=== PATIENT | male | born 1965 | race Caucasian/White ===

== ENCOUNTER 2017-04-22 17:54 | Emergency (ER) | payer MEDICAID, OTHER ==
[2017-04-22 18:41] VITALS: RESP 20
--- NOTE | 2017-04-22 19:29 | C.PDOC ---
History Of Present Illness 51 year old male presents to the ER with a complaint of right upper arm numbness and upper posterior chest wall pain by the base of the neck. Denies dizziness or weakness. Chief Complaint (Nursing): Weakness/Neurological Deficit History Per: Patient History/Exam Limitations: no limitations Onset/Duration Of Symptoms: Days Current Symptoms Are (Timing): Still Present Activity At Onset Of Symptoms: Sitting Seizure Or Post-ictal Symptoms: None Possible Causative Factor(s): Other (Not known) Fall Associated With With Symptoms: No Recent travel outside of the [place]: No - Symptoms Of CVA Associated Symptoms: denies: Impaired Speech, Seizure Activity, New Vision Deficit(Left), New Vision Deficit(Right), Decreased Ability To Walk, New Confusion Past Medical History Reviewed: Historical Data, Nursing Documentation, Vital Signs Vital Signs: Last Vital Signs Temp 98.3 F 04/22/17 18:40 Pulse 77 04/22/17 18:40 Resp 20 04/22/17 18:40 BP 146/88 04/22/17 18:40 Pulse Ox 97 04/23/17 01:52 Family History: States: Unknown Family Hx - Social History Hx Alcohol Use: Yes Hx Substance Use: No - Immunization History Hx Tetanus Toxoid Vaccination: No Hx Influenza Vaccination: No Review Of Systems Constitutional: Negative for: Fever, Chills Musculoskeletal: Positive for: Other (Posterior chest wall pain) Neurological: Positive for: Numbness (right upper arm). Negative for: Weakness , Dizziness Physical Exam - Physical Exam Appears: Non-toxic, Other (Alert. Conscious.) Skin: Normal Color, Warm, Dry Head: Atraumatic, Normacephalic Eye(s): bilateral: Normal Inspection Oral Mucosa: Moist Neck: Normal, No Midline Cervical Tenderness, No Paracervical Tenderness, Supple Chest: Symmetrical, Tenderness (Posterior chest wall by base of neck) Cardiovascular: Rhythm Regular Respiratory: Normal Breath Sounds, No Rales, No Rhonchi, No Wheezing Gastrointestinal/Abdominal: Soft, No Tenderness Extremity: No Tenderness, No Swelling Neurological/Psych: Oriented x3, Normal Speech, Normal Motor, Normal Sensation, Other (No focal deficits) ED Course And Treatment - Laboratory Results Result Diagrams: 04/22/17 20:37 04/22/17 20:37 O2 Sat by Pulse Oximetry: 97 (room air) Pulse Ox Interpretation: Normal - Radiology CXR: Interpreted by Me, Viewed By Me CXR Interpretation: Yes: No Acute Disease, Other (nomal chest film). No: Infiltrates Progress Note: CT head, blood work, EKG, CXR, and cervical spine x-ray ordered. Toradol administered. Disposition Counseled Patient/Family Regarding: Diagnosis - Disposition Referrals: [facility] [Outside] Disposition: HOME/ ROUTINE Disposition Time: 01:47 Condition: STABLE Prescriptions: Naproxen 375 mg PO TIDPC #14 tablet Instructions: Cervical Strain (GEN) Forms: Gen Discharge Inst Citizen Of [place], [employer] (French) Print Language: MAORI - POA Present On Arrival: None - Clinical Impression Clinical Impression: Strain of fascia of neck, Myofascial pain syndrome - Scribe Statement The provider has reviewed the documentation as recorded by the Scribe Christiano De La Cruz All medical record entries made by the Scribe were at my direction and personally dictated by me. I have reviewed the chart and agree that the record accurately reflects my personal performance of the history, physical exam, medical decision making, and the department course for this patient. I have also personally directed, reviewed, and agree with the discharge instructions and disposition.
[2017-04-22 20:40] LABS: BASO # 0.1 K/uL (0.0-0.2); BASO % 0.6 % (0.0-2.0); EOS % 0.5 % (0.0-4.0); HEMOGLOBIN 13.6 g/dL (12.0-18.0); LYMPH # 2.1 K/uL (1.0-4.3); LYMPH % 26.1 % (20.0-40.0); MEAN CELL VOLUME 86.3 fL (80.0-94.0); MEAN CORPUSCULAR HEMOGLOBIN 30.3 pg (27.0-31.0); MEAN CORPUSCULAR HGB CONC 35.1 g/dL (33.0-37.0); MEAN PLATELET VOLUME 10.8 fL (7.2-11.7); MONO # 0.7 K/uL (0.0-0.8); MONO % 8.2 % (0.0-10.0); NEUT # 5.2 K/uL (1.8-7.0); NEUT % 64.6 % (50.0-75.0); RBC 4.49 Mil/uL (4.40-5.90)
--- NOTE | 2017-04-22 20:40 | CT ---
EXAM: CT Head Without Intravenous Contrast EXAM DATE/TIME: 04/22/2017 7:28 PM CLINICAL HISTORY: 51 years old, male; Pain; Headache; Headache not specified TECHNIQUE: Axial computed tomography images of the head/brain without intravenous contrast. All CT scans at this facility use one or more dose reduction techniques, viz.: automated exposure control; ma/kV adjustment per patient size (including targeted exams where dose is matched to indication; i.e. head); or iterative reconstruction technique. COMPARISON: There are no prior studies for comparison. FINDINGS: Brain: Ventricles are normal in size and configuration. There is no midline shift. There is mild prominence of sulci and gyri There are no intra-axial or extra-axial mass lesions or areas of hemorrhage. There are no abnormal fluid collections. Ogden-white differentiation is maintained. There is a small punctate calcification in the right frontal lobe. Ventricles: See above. Bones: Cranial vault is intact. Soft tissues: unremarkable Sinuses: There is mucoperiosteal thickening in ethmoid and maxillary sinuses. Ears and mastoids: Middle ears and mastoids are unremarkable Orbits: Orbital contents are unremarkable. IMPRESSION: No acute intracranial abnormality
[2017-04-22 20:51] LABS: ALB/GLOB RATIO 1.1 (1.0-2.1); ALBUMIN 3.7 g/dL (3.5-5.0); ALT/SGPT 29 U/L (21-72); AST/SGOT 19 U/L (17-59); BLOOD UREA NITROGEN 14 mg/dL (9-20); CALCIUM 8.2 mg/dl (8.6-10.4); GFR AFRICAN-AMERICAN > 60; GFR NON-AFRICAN AMERICAN > 60
[2017-04-23 02:17] VITALS: BP 121/81; PULSE 76; TEMP 99.3; O2SAT 100
--- NOTE | 2017-04-23 09:06 | RAD ---
PROCEDURE: Cervical Spine Radiographs. HISTORY: Pain. COMPARISON: None. FINDINGS: BONES: Alignment maintained. No fracture. Dens Intact. DISC SPACES: Multilevel disc space narrowing, most prominent from C4-7. SOFT TISSUES: No prevertebral soft tissue swelling. OTHER FINDINGS: None. IMPRESSION: No acute fracture. Multilevel degenerative changes
--- NOTE | 2017-04-23 16:21 | CARD ---
APPROVED REPORT EKG Measurement Heart [id number] <Conclusion> Normal sinus rhythm Normal ECG
== END 2017-04-23 02:18 | disposition home or self-care (01) ==
LOC: EDBD 17:54 → C.ER 17:54
DX: S16.1XXA Strain of muscle, fascia and tendon at neck level, initial encounter (principal); X58.XXXA Exposure to other specified factors, initial encounter; Y92.9 Unspecified place or not applicable; M79.1 Myalgia
CPT/HCPCS: 70450; 71046; 72040; 80053; 85025; 93005; 96374; 99285; J1885

== ENCOUNTER 2017-06-23 18:34 | Inpatient (IN) | payer MEDICAID ==
[2017-06-23] MEDS ORDERED: Aluminum Hydroxide/Magnesium Hydroxide Susp (30 mL) PO STA (19:16)
[2017-06-23] MEDS ORDERED: Sodium Chloride 0.9% 1,000 ML IV ONE ×2 (19:16→20:58)
--- NOTE | 2017-06-23 19:24 | C.PDOC ---
History Of Present Illness 52 year old male with a Hx of diabetes presents to the ER with a complaint of abdominal pain and vomiting for the past 3 days. Patient states he has not been able to tolerate anything but water. Patient states he was occasionally drinks but not heavily. Denies fever, chills, hematemesis, rectal bleeding, or diarrhea. Chief Complaint (Nursing): Abdominal Pain History Per: Patient History/Exam Limitations: no limitations Onset/Duration Of Symptoms: Days Current Symptoms Are (Timing): Still Present Location Of Pain/Discomfort: Epigastric Radiation Of Pain To:: None Quality Of Discomfort: Unable To Describe Associated Symptoms: Nausea, Vomiting. denies: Fever, Chills Exacerbating Factors: None Alleviating Factors: None Recent travel outside of the [place]: No Past Medical History Reviewed: Historical Data, Nursing Documentation, Vital Signs Vital Signs: Last Vital Signs Temp 98.4 F 06/23/17 23:08 Pulse 74 06/24/17 06:00 Resp 6 L 06/24/17 06:00 BP 110/64 06/24/17 06:00 Pulse Ox 100 06/24/17 06:00 Family History: States: Unknown Family Hx - Social History Hx Alcohol Use: Yes Hx Substance Use: No - Immunization History Hx Tetanus Toxoid Vaccination: No Hx Influenza Vaccination: No Review Of Systems Constitutional: Negative for: Fever, Chills ENT: Negative for: Throat Pain Cardiovascular: Negative for: Chest Pain, Palpitations, Light Headedness Respiratory: Negative for: Cough, Shortness of Breath Gastrointestinal: Positive for: Nausea, Vomiting, Abdominal Pain. Negative for : Diarrhea, Hematemesis Physical Exam - Physical Exam Appears: Non-toxic Skin: Normal Color, Warm, Dry Head: Atraumatic, Normacephalic Eye(s): bilateral: Normal Inspection Oral Mucosa: Moist Chest: Symmetrical, No Tenderness Cardiovascular: Rhythm Regular Respiratory: Normal Breath Sounds, No Rales, No Rhonchi, No Wheezing Gastrointestinal/Abdominal: Soft, No Distention, Other (Mild subjective discomfort at epigastric area) Neurological/Psych: Oriented x3, Normal Speech ED Course And Treatment - Laboratory Results Result Diagrams: 06/24/17 04:02 06/24/17 04:02 ECG: Interpreted By Me, Viewed By Me ECG Rhythm: Sinus Rhythm ECG Interpretation: Normal Interpretation Of ECG: No ectope, normal axis, ST segment within normal limits. Rate From EC O2 Sat by Pulse Oximetry: 100 (Room air) Pulse Ox Interpretation: Normal - CT Scan/US Abdominal US Other Rad Studies (CT/US): Read By Radiologist, Radiology Report Reviewed CT/US Interpretation: EXAM: US Abdomen Limited, Right Upper Quadrant. CLINICAL HISTORY: 52 years old, male; Pain; Abdominal pain; Generalized; Additional info: Abd pain, lft's elevated. TECHNIQUE: Real-time ultrasound of the right upper quadrant with image documentation. COMPARISON: No relevant prior studies available. FINDINGS: Liver: Normal echogenicity. No mass. No intrahepatic ductal dilatation. Gallbladder: No gallstones. No wall thickening. No pericholecystic fluid. No sonographic Miner's. sign. Common bile duct: No dilatation. No stones. Pancreas: Unremarkable as visualized. Right kidney: Normal echogenicity. No hydronephrosis. IMPRESSION: 1. No acute findings. Medical Decision Making Medical Decision Making: Plan: * Blood work * Viscous Lidocaine * Maalox * Pepcid * Reglan * IV fluids Impression is gastritis. Lab work shows possible DKA and elevated LFTs, will evaluate gallbladder. Case discussed with Dr. Wyatt, hospitalist distribution clerk, who agrees to accept patient for admission. Case discussed with Dr. Emerson, hair salon manager distribution clerk, who will accept patient to the unit. Disposition - Disposition Disposition: HOSPITALIZED Disposition Time: 06:51 Condition: CRITICAL - Clinical Impression Clinical Impression: DKA (diabetic ketoacidoses) - Scribe Statement The provider has reviewed the documentation as recorded by the Scribemily De La Cruz All medical record entries made by the Scribe were at my direction and personally dictated by me. I have reviewed the chart and agree that the record accurately reflects my personal performance of the history, physical exam, medical decision making, and the department course for this patient. I have also personally directed, reviewed, and agree with the discharge instructions and disposition.
[2017-06-23] MEDS ORDERED: Aluminum Hydroxide/Magnesium Hydroxide Susp (30 mL) ONE (19:36)
[2017-06-23 19:38] LABS: BASO # 0.1 K/uL (0.0-0.2); BASO % 0.6 % (0.0-2.0); HEMOGLOBIN 15.2 g/dL (12.0-18.0); LYMPH # 1.3 K/uL (1.0-4.3); LYMPH % 12.1 % (20.0-40.0); MEAN CELL VOLUME 89.8 fL (80.0-94.0); MEAN CORPUSCULAR HEMOGLOBIN 30.5 pg (27.0-31.0); MEAN PLATELET VOLUME 10.7 fL (7.2-11.7); MONO # 0.8 K/uL (0.0-0.8); MONO % 7.2 % (0.0-10.0); NEUT # 8.8 K/uL (1.8-7.0); NEUT % 80.1 % (50.0-75.0); RBC 4.97 Mil/uL (4.40-5.90); RED CELL DISTRIBUTION WIDTH 13.3 % (11.5-14.5); WHITE BLOOD COUNT 10.9 K/uL (4.8-10.8)
[2017-06-23 19:54] LABS: ALB/GLOB RATIO 1.3 (1.0-2.1); ALBUMIN 4.8 g/dL (3.5-5.0); ALT/SGPT 36 U/L (21-72); AST/SGOT 13 U/L (17-59); BLOOD UREA NITROGEN 20 mg/dL (9-20); CALCIUM 8.5 mg/dl (8.6-10.4); GFR AFRICAN-AMERICAN > 60; GFR NON-AFRICAN AMERICAN > 60; LIPASE 77 U/L (23-300)
[2017-06-23] MEDS ORDERED: (Novolin R) Insulin Human Regular 100 units/ml vial IV ONE (20:04)
[2017-06-23 20:14] LABS: BARBITURATES, UR NEGATIVE (NEGATIVE); BENZODIAZEPINES, UR NEGATIVE (NEGATIVE); OPIATES, UR NEGATIVE (NEGATIVE); PHENCYCLIDINE, UR NEGATIVE (NEGATIVE)
[2017-06-23 20:27] LABS: URINE BILIRUBIN NEGATIVE (NEGATIVE); URINE BLOOD NEGATIVE (NEGATIVE); URINE CLARITY Clear (Clear); URINE GLUCOSE (UA) 3+ mg/dL (Normal); URINE LEUKOCYTE ESTERASE NEG Leu/uL (Negative); URINE PROTEIN NEGATIVE (NEGATIVE); URINE UROBILINOGEN NORMAL mg/dL (0.2-1.0)
[2017-06-23 20:29] LABS: URINE COLOR STRAW (YELLOW)
[2017-06-23 20:34] LABS: ARTERIAL BLOOD GAS HCO3 16.9 mmol/L (21-28); ARTERIAL BLOOD GAS HEMOGLOBIN 13.6 g/dL (11.7-17.4); ARTERIAL BLOOD GAS O2 SAT 96.3 % (95-98); ARTERIAL BLOOD GAS PCO2 40 mm/Hg (35-45); ARTERIAL BLOOD GAS PH 7.23 (7.35-7.45); ARTERIAL BLOOD GAS PO2 86 mm/Hg (80-100)
[2017-06-23] MEDS ORDERED: (Novolin R) Insulin Human Regular 100 units/ml vial ONE (20:48)
[2017-06-23] MEDS ORDERED: Insulin Human Regular 100 UNIT in Sodium Chloride 0.9% 99 ML IV SCH ×2 (21:00→23:45)
[2017-06-23] MEDS ORDERED: Sodium Chloride 0.9% 1,000 ML ONE (21:15)
--- NOTE | 2017-06-23 21:51 | CP.PCM.CON ---
History of Present Illness - History of Present Illness History of Present Illness: 52 year old male with a Hx of diabetes presents to the ER with a complaint of abdominal pain and vomiting for the past 3 days. Patient states he has not been able to tolerate anything but water. He last took insulin on friday.Drinks alchohol on weekerds last had alchohol on friday. Denies fever, chills, cough, chest pain,hematemesis, rectal bleeding, or diarrhea. history via dermatology nurse Review of Systems - Constitutional Constitutional: Anorexia, Fatigue, Weakness. absent: Chills, Excessive Sweating , Fever, Night Sweats - EENT Eyes: absent: Blurred Vision, Pain Ears: absent: Decreased Hearing, Dizziness Nose/Mouth/Throat: absent: Hoarsness, Sore Throat - Cardiovascular Cardiovascular: absent: Chest Pain, Edema, Leg Edema - Respiratory Respiratory: absent: Cough, Dyspnea, Chest Congestion - Gastrointestinal Gastrointestinal: Abdominal Pain (epigastric pain), Nausea, Vomiting. absent: Coffee Ground Emesis, Constipation - Genitourinary Genitourinary: absent: Dysuria, Urinary Frequency, Urinary Urgency - Musculoskeletal Musculoskeletal: absent: Back Pain, Stiffness - Integumentary Integumentary: absent: Bleeding Lesions, Rash - Neurological Neurological: absent: Confusion, Dizziness - Endocrine Endocrine: absent: Polydipsia, Polyuria Additional Comments: occassional palpitations - Hematologic/Lymphatic Hematologic: absent: Easy Bleeding Past Patient History - Past Social History Smoking Status: Never Smoked Occupation: house keeper Alcohol: Other (drinks on weekends but "not every weekend") Drugs: Denies - CARDIAC Hx Cardiac Disorders: No - PULMONARY Hx Respiratory Disorders: No - NEUROLOGICAL Hx Neurological Disorder: No - HEENT Hx HEENT Problems: No - RENAL Hx Chronic Kidney Disease: No - ENDOCRINE/METABOLIC Hx Diabetes Mellitus Type 2: Yes - HEMATOLOGICAL/ONCOLOGICAL Hx Blood Disorders: No - INTEGUMENTARY Hx Dermatological Problems: No - MUSCULOSKELETAL/RHEUMATOLOGICAL Hx Musculoskeletal Disorders: No - GASTROINTESTINAL Hx Gastrointestinal Disorders: No - PSYCHIATRIC Hx Substance Use: No - SURGICAL HISTORY Other/Comment: Rt. eye surgery - ANESTHESIA Hx Anesthesia: No Hx Anesthesia Reactions: No Meds Allergies/Adverse Reactions: Allergies Allergy/AdvReac Type Severity Reaction Status Date / Time No Known Allergies Allergy Unverified 04/22/17 18:41 - Medications Medications: Current Medications Insulin Human Regular 100 unit (/ Sodium Chloride) 100 mls @ 1.08 mls/hr IV .Q24H NISSA; 0.02 UNIT/KG/HR PRN Reason: Protocol Sodium Chloride (Sodium Chloride 0.9%) 1,000 mls @ 1,000 mls/hr IV .Q1H ONE Stop: 06/23/17 21:57 Last Admin: 06/23/17 21:15 Dose: 1,000 mls/hr Physical Exam - Constitutional Appears: No Acute Distress - Head Exam Head Exam: ATRAUMATIC, NORMAL INSPECTION, NORMOCEPHALIC - Eye Exam Eye Exam: EOMI, Normal appearance, PERRL. absent: Conjunctival injection Pupil Exam: NORMAL ACCOMODATION - ENT Exam ENT Exam: Mucous Membranes Dry, Normal External Ear Exam - Neck Exam Neck exam: Positive for: Normal Inspection - Respiratory Exam Respiratory Exam: Clear to Auscultation Bilateral, NORMAL BREATHING PATTERN - Cardiovascular Exam Cardiovascular Exam: REGULAR RHYTHM. absent: JVD - GI/Abdominal Exam GI & Abdominal Exam: Normal Bowel Sounds, Soft. absent: Tenderness - Rectal Exam Rectal Exam: Deferred - Extremities Exam Extremities exam: Positive for: normal inspection. Negative for: calf tenderness, pedal edema - Back Exam Back exam: absent: NORMAL INSPECTION - Neurological Exam Neurological exam: Alert, CN II-XII Intact, Oriented x3 - Skin Skin Exam: Dry, Normal Color, Warm Results - Vital Signs Recent Vital Signs: Last Vital Signs Temp 97.7 F 06/23/17 18:46 Pulse 102 H 06/23/17 18:46 Resp 18 06/23/17 18:46 BP 132/87 06/23/17 18:46 Pulse Ox 100 06/23/17 21:15 - Labs Result Diagrams: 06/23/17 19:35 06/23/17 19:35 Labs: Laboratory Results - last 24 hr 06/23/17 06/23/17 06/23/17 19:35 19:35 19:52 WBC 10.9 H RBC 4.97 Hgb 15.2 Hct 44.6 MCV 89.8 D MCH 30.5 MCHC 34.0 RDW 13.3 Plt Count 183 MPV 10.7 Neut % (Auto) 80.1 H Lymph % (Auto) 12.1 L [place] % (Auto) 7.2 Eos % (Auto) 0.0 Baso % (Auto) 0.6 Neut # (Auto) 8.8 H Lymph # (Auto) 1.3 [place] # (Auto) 0.8 Eos # (Auto) 0.0 Baso # (Auto) 0.1 Puncture Site pCO2 pO2 HCO3 ABG pH ABG Total CO2 ABG O2 Saturation ABG Base Excess ABG Hemoglobin ABG Carboxyhemoglobin POC ABG HHb (Measured) ABG Methemoglobin Kp Test A-a O2 Difference Respiratory Index Hgb O2 Saturation Liter Flow FiO2 Sodium 136 Potassium 5.2 Chloride 92 L Carbon Dioxide 17 L Anion Gap 32 H BUN 20 Creatinine 1.1 Est GFR ( Amer) > 60 Est GFR (Non-Af Amer) > 60 POC Glucose (mg/dL) Random Glucose 524 H* D Calcium 8.5 L Total Bilirubin 1.6 H AST 13 L D ALT 36 Alkaline Phosphatase 116 Total Protein 8.4 H Albumin 4.8 Globulin 3.6 Albumin/Globulin Ratio 1.3 Lipase 77 Urine Color Urine Clarity Urine pH Ur Specific Venus Urine Protein Urine Glucose (UA) Urine Ketones Urine Blood Urine Nitrate Urine Bilirubin Urine Urobilinogen Ur Leukocyte Esterase Urine WBC (Auto) Urine Opiates Screen Negative Urine Methadone Screen Negative Ur Barbiturates Screen Negative Ur Phencyclidine Scrn Negative Ur Amphetamines Screen Negative U Benzodiazepines Scrn Negative U Oth Cocaine Metabols Positive H U Cannabinoids Screen Negative Alcohol, Quantitative < 10 Serum Ketones 06/23/17 06/23/17 06/23/17 20:21 20:21 20:30 WBC RBC Hgb Hct MCV MCH MCHC RDW Plt Count MPV Neut % (Auto) Lymph % (Auto) [place] % (Auto) Eos % (Auto) Baso % (Auto) Neut # (Auto) Lymph # (Auto) [place] # (Auto) Eos # (Auto) Baso # (Auto) Puncture Site Rba pCO2 40 pO2 86 HCO3 16.9 L ABG pH 7.23 L ABG Total CO2 18.0 L ABG O2 Saturation 96.3 ABG Base Excess -10.2 L ABG Hemoglobin 13.6 ABG Carboxyhemoglobin 1.2 POC ABG HHb (Measured) 3.6 ABG Methemoglobin 1.0 Kp Test Na A-a O2 Difference 14.0 Respiratory Index 0.2 Hgb O2 Saturation 94.2 L Liter Flow 0 FiO2 21.0 Sodium Potassium Chloride Carbon Dioxide Anion Gap BUN Creatinine Est GFR ( Amer) Est GFR (Non-Af Amer) POC Glucose (mg/dL) Random Glucose Calcium Total Bilirubin AST ALT Alkaline Phosphatase Total Protein Albumin Globulin Albumin/Globulin Ratio Lipase Urine Color Straw Urine Clarity Clear Urine pH 5.0 Ur Specific Venus 1.027 Urine Protein Negative Urine Glucose (UA) 3+ H Urine Ketones 2+ H Urine Blood Negative Urine Nitrate Negative Urine Bilirubin Negative Urine Urobilinogen Normal Ur Leukocyte Esterase Neg Urine WBC (Auto) < 1 Urine Opiates Screen Urine Methadone Screen Ur Barbiturates Screen Ur Phencyclidine Scrn Ur Amphetamines Screen U Benzodiazepines Scrn U Oth Cocaine Metabols U Cannabinoids Screen Alcohol, Quantitative Serum Ketones Small 06/23/17 21:41 WBC RBC Hgb Hct MCV MCH MCHC RDW Plt Count MPV Neut % (Auto) Lymph % (Auto) [place] % (Auto) Eos % (Auto) Baso % (Auto) Neut # (Auto) Lymph # (Auto) [place] # (Auto) Eos # (Auto) Baso # (Auto) Puncture Site pCO2 pO2 HCO3 ABG pH ABG Total CO2 ABG O2 Saturation ABG Base Excess ABG Hemoglobin ABG Carboxyhemoglobin POC ABG HHb (Measured) ABG Methemoglobin Kp Test A-a O2 Difference Respiratory Index Hgb O2 Saturation Liter Flow FiO2 Sodium Potassium Chloride Carbon Dioxide Anion Gap BUN Creatinine Est GFR ( Amer) Est GFR (Non-Af Amer) POC Glucose (mg/dL) 252 H Random Glucose Calcium Total Bilirubin AST ALT Alkaline Phosphatase Total Protein Albumin Globulin Albumin/Globulin Ratio Lipase Urine Color Urine Clarity Urine pH Ur Specific [place] Urine Protein Urine Glucose (UA) Urine Ketones Urine Blood Urine Nitrate Urine Bilirubin Urine Urobilinogen Ur Leukocyte Esterase Urine WBC (Auto) Urine Opiates Screen Urine Methadone Screen Ur Barbiturates Screen Ur Phencyclidine Scrn Ur Amphetamines Screen U Benzodiazepines Scrn U Oth Cocaine Metabols U Cannabinoids Screen Alcohol, Quantitative Serum Ketones - EKG Data EKG Interpreted by: Myself EKG shows normal: Sinus rhythm Rate: Normal Assessment & Plan - Assessment and Plan (Free Text) Assessment: 1.Diabetic Ketoacidosis anion gap 32 IVF,insulin 2.Coccain use 3. Elevated total bilirubin.AST low,ALT and alk phos normal f/u with rpt labs. US done in ER-f/u with results
--- NOTE | 2017-06-23 22:04 | US ---
EXAM: US Abdomen Limited, Right Upper Quadrant CLINICAL HISTORY: 52 years old, male; Pain; Abdominal pain; Generalized; Additional info: Abd pain, lft's elevated TECHNIQUE: Real-time ultrasound of the right upper quadrant with image documentation. COMPARISON: No relevant prior studies available. FINDINGS: Liver: Normal echogenicity. No mass. No intrahepatic ductal dilatation. Gallbladder: No gallstones. No wall thickening. No pericholecystic fluid. No sonographic Miner's sign. Common bile duct: No dilatation. No stones. Pancreas: Unremarkable as visualized. Right kidney: Normal echogenicity. No hydronephrosis. IMPRESSION: 1.No acute findings.
[2017-06-23] MEDS ORDERED: Dextrose 5%/0.9% NS 1,000 ML IV SCH (22:15)
[2017-06-23] MEDS ORDERED: SODIUM CHLORIDE 0.9% IV SCH (22:44)
[2017-06-23] MEDS ORDERED: INSULIN HUMAN REGULAR IV SCH (22:44)
--- NOTE | 2017-06-23 23:12 | CP.PCM.HP ---
<Glenn Eliasssjam Shahid - Last Filed: 06/24/17 01:11> History of Present Illness - History of Present Illness History of Present Illness: HPI: 52 year old male with past medical history of DM type II presents to the ER for elevated blood sugar. Patient states he did not take his insulin for 3 days because his stomach was bothering him. Patient states he usually takes 30 units of Insulin (does not recall what kind) every morning. Patient states the abdominal pain felt like acid. He states he had a bowel movement this morning. Patient states the abdominal pain has not stopped. Patient denies chest pain , palpitations, shortness of breath, nausea or vomiting. 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 States he drinks one per week about 2-3 beers Present on Admission - Present on Admission Any Indicators Present on Admission: No Review of Systems - Constitutional Constitutional: absent: Chills, Fatigue, Headache - EENT Eyes: absent: Change in Vision - Cardiovascular Cardiovascular: absent: Chest Pain, Dyspnea - Respiratory Respiratory: absent: Dyspnea - Gastrointestinal Gastrointestinal: absent: Abdominal Pain, Constipation, Nausea, Vomiting - Genitourinary Genitourinary: absent: Dysuria - Neurological Neurological: absent: Dizziness, Headaches Past Patient History - Past Social History Smoking Status: Never Smoked Occupation: house keeper Alcohol: Other (drinks on weekends but "not every weekend") Drugs: Denies - CARDIAC Hx Cardiac Disorders: No - PULMONARY Hx Respiratory Disorders: No - NEUROLOGICAL Hx Neurological Disorder: No - HEENT Hx HEENT Problems: No - RENAL Hx Chronic Kidney Disease: No - ENDOCRINE/METABOLIC Hx Diabetes Mellitus Type 2: Yes - HEMATOLOGICAL/ONCOLOGICAL Hx Blood Disorders: No - INTEGUMENTARY Hx Dermatological Problems: No - MUSCULOSKELETAL/RHEUMATOLOGICAL Hx Musculoskeletal Disorders: No - GASTROINTESTINAL Hx Gastrointestinal Disorders: No - PSYCHIATRIC Hx Substance Use: No - SURGICAL HISTORY Other/Comment: Rt. eye surgery - ANESTHESIA Hx Anesthesia: No Hx Anesthesia Reactions: No Meds Allergies/Adverse Reactions: Allergies Allergy/AdvReac Type Severity Reaction Status Date / Time No Known Allergies Allergy Unverified 01/23/18 18:41 Physical Exam - Constitutional Appears: No Acute Distress - Head Exam Head Exam: ATRAUMATIC, NORMAL INSPECTION - Eye Exam Eye Exam: EOMI, Normal appearance - ENT Exam ENT Exam: Mucous Membranes Moist - Respiratory Exam Respiratory Exam: Clear to Auscultation Bilateral, NORMAL BREATHING PATTERN - Cardiovascular Exam Cardiovascular Exam: REGULAR RHYTHM, +S1, +S2 - GI/Abdominal Exam GI & Abdominal Exam: Normal Bowel Sounds, Soft. absent: Distended, Firm, Guarding, Tenderness - Extremities Exam Extremities exam: Positive for: normal inspection. Negative for: pedal edema, tenderness - Neurological Exam Neurological exam: Alert, Oriented x3 - Psychiatric Exam Psychiatric exam: Normal Affect, Normal Mood - Skin Skin Exam: Normal Color, Warm Results - Vital Signs Recent Vital Signs: Last Vital Signs Temp 98.3 F 06/23/17 22:05 Pulse 96 H 06/23/17 22:05 Resp 16 06/23/17 22:05 BP 125/80 06/23/17 22:05 Pulse Ox 100 06/23/17 22:28 - Labs Result Diagrams: 06/23/17 19:35 06/23/17 19:35 Labs: Laboratory Results - last 24 hr 06/23/17 06/23/17 06/23/17 19:35 19:35 19:52 WBC 10.9 H RBC 4.97 Hgb 15.2 Hct 44.6 MCV 89.8 D MCH 30.5 MCHC 34.0 RDW 13.3 Plt Count 183 MPV 10.7 Neut % (Auto) 80.1 H Lymph % (Auto) 12.1 L [place] % (Auto) 7.2 Eos % (Auto) 0.0 Baso % (Auto) 0.6 Neut # (Auto) 8.8 H Lymph # (Auto) 1.3 [place] # (Auto) 0.8 Eos # (Auto) 0.0 Baso # (Auto) 0.1 Puncture Site pCO2 pO2 HCO3 ABG pH ABG Total CO2 ABG O2 Saturation ABG Base Excess ABG Hemoglobin ABG Carboxyhemoglobin POC ABG HHb (Measured) ABG Methemoglobin Kp Test A-a O2 Difference Respiratory Index Hgb O2 Saturation Liter Flow FiO2 Sodium 136 Potassium 5.2 Chloride 92 L Carbon Dioxide 17 L Anion Gap 32 H BUN 20 Creatinine 1.1 Est GFR ( Amer) > 60 Est GFR (Non-Af Amer) > 60 POC Glucose (mg/dL) Random Glucose 524 H* D Calcium 8.5 L Total Bilirubin 1.6 H AST 13 L D ALT 36 Alkaline Phosphatase 116 Total Protein 8.4 H Albumin 4.8 Globulin 3.6 Albumin/Globulin Ratio 1.3 Lipase 77 Urine Color Urine Clarity Urine pH Ur Specific [place] Urine Protein Urine Glucose (UA) Urine Ketones Urine Blood Urine Nitrate Urine Bilirubin Urine Urobilinogen Ur Leukocyte Esterase Urine WBC (Auto) Urine Opiates Screen Negative Urine Methadone Screen Negative Ur Barbiturates Screen Negative Ur Phencyclidine Scrn Negative Ur Amphetamines Screen Negative U Benzodiazepines Scrn Negative U Oth Cocaine Metabols Positive H U Cannabinoids Screen Negative Alcohol, Quantitative < 10 Serum Ketones 06/23/17 06/23/17 06/23/17 20:21 20:21 20:30 WBC RBC Hgb Hct MCV MCH MCHC RDW Plt Count MPV Neut % (Auto) Lymph % (Auto) [place] % (Auto) Eos % (Auto) Baso % (Auto) Neut # (Auto) Lymph # (Auto) [place] # (Auto) Eos # (Auto) Baso # (Auto) Puncture Site Rba pCO2 40 pO2 86 HCO3 16.9 L ABG pH 7.23 L ABG Total CO2 18.0 L ABG O2 Saturation 96.3 ABG Base Excess -10.2 L ABG Hemoglobin 13.6 ABG Carboxyhemoglobin 1.2 POC ABG HHb (Measured) 3.6 ABG Methemoglobin 1.0 Kp Test Na A-a O2 Difference 14.0 Respiratory Index 0.2 Hgb O2 Saturation 94.2 L Liter Flow 0 FiO2 21.0 Sodium Potassium Chloride Carbon Dioxide Anion Gap BUN Creatinine Est GFR ( Amer) Est GFR (Non-Af Amer) POC Glucose (mg/dL) Random Glucose Calcium Total Bilirubin AST ALT Alkaline Phosphatase Total Protein Albumin Globulin Albumin/Globulin Ratio Lipase Urine Color Straw Urine Clarity Clear Urine pH 5.0 Ur Specific [place] 1.027 Urine Protein Negative Urine Glucose (UA) 3+ H Urine Ketones 2+ H Urine Blood Negative Urine Nitrate Negative Urine Bilirubin Negative Urine Urobilinogen Normal Ur Leukocyte Esterase Neg Urine WBC (Auto) < 1 Urine Opiates Screen Urine Methadone Screen Ur Barbiturates Screen Ur Phencyclidine Scrn Ur Amphetamines Screen U Benzodiazepines Scrn U Oth Cocaine Metabols U Cannabinoids Screen Alcohol, Quantitative Serum Ketones Small 03/26/18 21:41 WBC RBC Hgb Hct MCV MCH MCHC RDW Plt Count MPV Neut % (Auto) Lymph % (Auto) [place] % (Auto) Eos % (Auto) Baso % (Auto) Neut # (Auto) Lymph # (Auto) [place] # (Auto) Eos # (Auto) Baso # (Auto) Puncture Site pCO2 pO2 HCO3 ABG pH ABG Total CO2 ABG O2 Saturation ABG Base Excess ABG Hemoglobin ABG Carboxyhemoglobin POC ABG HHb (Measured) ABG Methemoglobin Kp Test A-a O2 Difference Respiratory Index Hgb O2 Saturation Liter Flow FiO2 Sodium Potassium Chloride Carbon Dioxide Anion Gap BUN Creatinine Est GFR ( Amer) Est GFR (Non-Af Amer) POC Glucose (mg/dL) 252 H Random Glucose Calcium Total Bilirubin AST ALT Alkaline Phosphatase Total Protein Albumin Globulin Albumin/Globulin Ratio Lipase Urine Color Urine Clarity Urine pH Ur Specific [place] Urine Protein Urine Glucose (UA) Urine Ketones Urine Blood Urine Nitrate Urine Bilirubin Urine Urobilinogen Ur Leukocyte Esterase Urine WBC (Auto) Urine Opiates Screen Urine Methadone Screen Ur Barbiturates Screen Ur Phencyclidine Scrn Ur Amphetamines Screen U Benzodiazepines Scrn U Oth Cocaine Metabols U Cannabinoids Screen Alcohol, Quantitative Serum Ketones Assessment & Plan - Assessment and Plan (Free Text) Assessment: 1.) DKA - Patient admitted to ICU - Insulin drip 2.) UDS + for Cocaine 3.) Elevated Bilirubin - Total Bilirubin 1.6 <Bruce Wyatt - Last Filed: 06/24/17 06:13> Results - Vital Signs Recent Vital Signs: Last Vital Signs Temp 98.4 F 06/23/17 23:08 Pulse 77 06/24/17 05:00 Resp 16 06/24/17 05:00 BP 123/76 06/24/17 05:00 Pulse Ox 100 06/24/17 05:00 - Labs Result Diagrams: 06/24/17 04:02 06/24/17 04:02 Labs: Laboratory Results - last 24 hr 06/23/17 06/23/17 06/23/17 19:35 19:35 19:52 WBC 10.9 H RBC 4.97 Hgb 15.2 Hct 44.6 MCV 89.8 D MCH 30.5 MCHC 34.0 RDW 13.3 Plt Count 183 MPV 10.7 Neut % (Auto) 80.1 H Lymph % (Auto) 12.1 L [place] % (Auto) 7.2 Eos % (Auto) 0.0 Baso % (Auto) 0.6 Neut # (Auto) 8.8 H Lymph # (Auto) 1.3 [place] # (Auto) 0.8 Eos # (Auto) 0.0 Baso # (Auto) 0.1 Puncture Site pCO2 pO2 HCO3 ABG pH ABG Total CO2 ABG O2 Saturation ABG Base Excess ABG Hemoglobin ABG Carboxyhemoglobin POC ABG HHb (Measured) ABG Methemoglobin Kp Test A-a O2 Difference Respiratory Index Hgb O2 Saturation Liter Flow FiO2 Sodium 136 Potassium 5.2 Chloride 92 L Carbon Dioxide 17 L Anion Gap 32 H BUN 20 Creatinine 1.1 Est GFR ( Amer) > 60 Est GFR (Non-Af Amer) > 60 POC Glucose (mg/dL) Random Glucose 524 H* D Calcium 8.5 L Phosphorus Magnesium Total Bilirubin 1.6 H AST 13 L D ALT 36 Alkaline Phosphatase 116 Total Protein 8.4 H Albumin 4.8 Globulin 3.6 Albumin/Globulin Ratio 1.3 Lipase 77 Urine Color Urine Clarity Urine pH Ur Specific [place] Urine Protein Urine Glucose (UA) Urine Ketones Urine Blood Urine Nitrate Urine Bilirubin Urine Urobilinogen Ur Leukocyte Esterase Urine WBC (Auto) Urine Opiates Screen Negative Urine Methadone Screen Negative Ur Barbiturates Screen Negative Ur Phencyclidine Scrn Negative Ur Amphetamines Screen Negative U Benzodiazepines Scrn Negative U Oth Cocaine Metabols Positive H U Cannabinoids Screen Negative Alcohol, Quantitative < 10 Serum Ketones 06/23/17 06/23/17 06/23/17 20:21 20:21 20:30 WBC RBC Hgb Hct MCV MCH MCHC RDW Plt Count MPV Neut % (Auto) Lymph % (Auto) [place] % (Auto) Eos % (Auto) Baso % (Auto) Neut # (Auto) Lymph # (Auto) [place] # (Auto) Eos # (Auto) Baso # (Auto) Puncture Site Rba pCO2 40 pO2 86 HCO3 16.9 L ABG pH 7.23 L ABG Total CO2 18.0 L ABG O2 Saturation 96.3 ABG Base Excess -10.2 L ABG Hemoglobin 13.6 ABG Carboxyhemoglobin 1.2 POC ABG HHb (Measured) 3.6 ABG Methemoglobin 1.0 Kp Test Na A-a O2 Difference 14.0 Respiratory Index 0.2 Hgb O2 Saturation 94.2 L Liter Flow 0 FiO2 21.0 Sodium Potassium Chloride Carbon Dioxide Anion Gap BUN Creatinine Est GFR ( Amer) Est GFR (Non-Af Amer) POC Glucose (mg/dL) Random Glucose Calcium Phosphorus Magnesium Total Bilirubin AST ALT Alkaline Phosphatase Total Protein Albumin Globulin Albumin/Globulin Ratio Lipase Urine Color Straw Urine Clarity Clear Urine pH 5.0 Ur Specific [place] 1.027 Urine Protein Negative Urine Glucose (UA) 3+ H Urine Ketones 2+ H Urine Blood Negative Urine Nitrate Negative Urine Bilirubin Negative Urine Urobilinogen Normal Ur Leukocyte Esterase Neg Urine WBC (Auto) < 1 Urine Opiates Screen Urine Methadone Screen Ur Barbiturates Screen Ur Phencyclidine Scrn Ur Amphetamines Screen U Benzodiazepines Scrn U Oth Cocaine Metabols U Cannabinoids Screen Alcohol, Quantitative Serum Ketones Small 06/23/17 06/23/17 06/24/17 21:41 23:54 00:59 WBC RBC Hgb Hct MCV MCH MCHC RDW Plt Count MPV Neut % (Auto) Lymph % (Auto) [place] % (Auto) Eos % (Auto) Baso % (Auto) Neut # (Auto) Lymph # (Auto) [place] # (Auto) Eos # (Auto) Baso # (Auto) Puncture Site pCO2 pO2 HCO3 ABG pH ABG Total CO2 ABG O2 Saturation ABG Base Excess ABG Hemoglobin ABG Carboxyhemoglobin POC ABG HHb (Measured) ABG Methemoglobin Kp Test A-a O2 Difference Respiratory Index Hgb O2 Saturation Liter Flow FiO2 Sodium Potassium Chloride Carbon Dioxide Anion Gap BUN Creatinine Est GFR ( Amer) Est GFR (Non-Af Amer) POC Glucose (mg/dL) 252 H 317 H 237 H Random Glucose Calcium Phosphorus Magnesium Total Bilirubin AST ALT Alkaline Phosphatase Total Protein Albumin Globulin Albumin/Globulin Ratio Lipase Urine Color Urine Clarity Urine pH Ur Specific [place] Urine Protein Urine Glucose (UA) Urine Ketones Urine Blood Urine Nitrate Urine Bilirubin Urine Urobilinogen Ur Leukocyte Esterase Urine WBC (Auto) Urine Opiates Screen Urine Methadone Screen Ur Barbiturates Screen Ur Phencyclidine Scrn Ur Amphetamines Screen U Benzodiazepines Scrn U Oth Cocaine Metabols U Cannabinoids Screen Alcohol, Quantitative Serum Ketones 06/24/17 06/24/17 06/24/17 01:13 01:13 01:59 WBC 8.9 RBC 3.96 L Hgb 12.3 D Hct 35.0 MCV 88.5 MCH 31.0 MCHC 35.0 RDW 12.8 Plt Count 151 MPV 11.3 Neut % (Auto) 60.9 Lymph % (Auto) 31.3 [place] % (Auto) 7.0 Eos % (Auto) 0.2 Baso % (Auto) 0.6 Neut # (Auto) 5.4 Lymph # (Auto) 2.8 [place] # (Auto) 0.6 Eos # (Auto) 0.0 Baso # (Auto) 0.1 Puncture Site pCO2 pO2 HCO3 ABG pH ABG Total CO2 ABG O2 Saturation ABG Base Excess ABG Hemoglobin ABG Carboxyhemoglobin POC ABG HHb (Measured) ABG Methemoglobin Kp Test A-a O2 Difference Respiratory Index Hgb O2 Saturation Liter Flow FiO2 Sodium 141 Potassium 3.9 Chloride 105 Carbon Dioxide 24 Anion Gap 15 BUN 17 Creatinine 0.9 Est GFR ( Amer) > 60 Est GFR (Non-Af Amer) > 60 POC Glucose (mg/dL) 134 H Random Glucose 242 H Calcium 7.4 L Phosphorus 2.2 L Magnesium 2.2 Total Bilirubin 0.8 AST 14 L ALT 21 D Alkaline Phosphatase 77 Total Protein 6.3 Albumin 3.4 L D Globulin 3.0 Albumin/Globulin Ratio 1.1 Lipase Urine Color Urine Clarity Urine pH Ur Specific [place] Urine Protein Urine Glucose (UA) Urine Ketones Urine Blood Urine Nitrate Urine Bilirubin Urine Urobilinogen Ur Leukocyte Esterase Urine WBC (Auto) Urine Opiates Screen Urine Methadone Screen Ur Barbiturates Screen Ur Phencyclidine Scrn Ur Amphetamines Screen U Benzodiazepines Scrn U Oth Cocaine Metabols U Cannabinoids Screen Alcohol, Quantitative Serum Ketones 06/24/17 06/24/17 06/24/17 03:09 04:02 04:02 WBC 8.2 RBC 3.89 L Hgb 11.9 L Hct 34.6 L MCV 88.7 MCH 30.7 MCHC 34.6 RDW 13.2 Plt Count 161 MPV 11.0 Neut % (Auto) 52.8 Lymph % (Auto) 36.8 [place] % (Auto) 9.4 Eos % (Auto) 0.3 Baso % (Auto) 0.7 Neut # (Auto) 4.3 Lymph # (Auto) 3.0 [place] # (Auto) 0.8 Eos # (Auto) 0.0 Baso # (Auto) 0.1 Puncture Site pCO2 pO2 HCO3 ABG pH ABG Total CO2 ABG O2 Saturation ABG Base Excess ABG Hemoglobin ABG Carboxyhemoglobin POC ABG HHb (Measured) ABG Methemoglobin Kp Test A-a O2 Difference Respiratory Index Hgb O2 Saturation Liter Flow FiO2 Sodium 141 Potassium 3.6 Chloride 109 H Carbon Dioxide 22 Anion Gap 14 BUN 15 Creatinine 0.9 Est GFR ( Amer) > 60 Est GFR (Non-Af Amer) > 60 POC Glucose (mg/dL) 108 Random Glucose 117 H Calcium 7.6 L Phosphorus Magnesium Total Bilirubin 0.8 AST 15 L ALT 34 Alkaline Phosphatase 76 Total Protein 6.1 L Albumin 3.2 L Globulin 2.9 Albumin/Globulin Ratio 1.1 Lipase Urine Color Urine Clarity Urine pH Ur Specific [place] Urine Protein Urine Glucose (UA) Urine Ketones Urine Blood Urine Nitrate Urine Bilirubin Urine Urobilinogen Ur Leukocyte Esterase Urine WBC (Auto) Urine Opiates Screen Urine Methadone Screen Ur Barbiturates Screen Ur Phencyclidine Scrn Ur Amphetamines Screen U Benzodiazepines Scrn U Oth Cocaine Metabols U Cannabinoids Screen Alcohol, Quantitative Serum Ketones 06/24/17 06/24/17 04:15 05:23 WBC RBC Hgb Hct MCV MCH MCHC RDW Plt Count MPV Neut % (Auto) Lymph % (Auto) [place] % (Auto) Eos % (Auto) Baso % (Auto) Neut # (Auto) Lymph # (Auto) [place] # (Auto) Eos # (Auto) Baso # (Auto) Puncture Site pCO2 pO2 HCO3 ABG pH ABG Total CO2 ABG O2 Saturation ABG Base Excess ABG Hemoglobin ABG Carboxyhemoglobin POC ABG HHb (Measured) ABG Methemoglobin Kp Test A-a O2 Difference Respiratory Index Hgb O2 Saturation Liter Flow FiO2 Sodium Potassium Chloride Carbon Dioxide Anion Gap BUN Creatinine Est GFR ( Amer) Est GFR (Non-Af Amer) POC Glucose (mg/dL) 116 H 125 H Random Glucose Calcium Phosphorus Magnesium Total Bilirubin AST ALT Alkaline Phosphatase Total Protein Albumin Globulin Albumin/Globulin Ratio Lipase Urine Color Urine Clarity Urine pH Ur Specific [place] Urine Protein Urine Glucose (UA) Urine Ketones Urine Blood Urine Nitrate Urine Bilirubin Urine Urobilinogen Ur Leukocyte Esterase Urine WBC (Auto) Urine Opiates Screen Urine Methadone Screen Ur Barbiturates Screen Ur Phencyclidine Scrn Ur Amphetamines Screen U Benzodiazepines Scrn U Oth Cocaine Metabols U Cannabinoids Screen Alcohol, Quantitative Serum Ketones Assessment & Plan - Date & Time Date: 06/24/17 (I have seen and examined the patient. I agree with the findings and plan of care as documented by Dr. Elias. Admit patient to ICU for DKA. Insulin drip. Management as per ICU. Monitor closely. Avoid beta nick due to cocaine use. Monitor for acute changes.) Time: 06:12 Attending/Attestation - Attestation I have personally seen and examined this patient.: Yes I have fully participated in the care of the patient.: Yes I have reviewed all pertinent clinical information: Yes
[2017-06-23] MEDS: Sodium Chloride 0.9% 1,000 ML IV SCH (23:20)
[2017-06-23] MEDS ORDERED: SODIUM CHLORIDE 0.9% IV PRN (23:45)
[2017-06-23] MEDS ORDERED: INSULIN HUMAN REGULAR IV PRN (23:45)
[2017-06-24 01:21] LABS: BASO # 0.1 K/uL (0.0-0.2); BASO % 0.6 % (0.0-2.0); EOS % 0.2 % (0.0-4.0); HEMOGLOBIN 12.3 g/dL (12.0-18.0); LYMPH # 2.8 K/uL (1.0-4.3); LYMPH % 31.3 % (20.0-40.0); MEAN CELL VOLUME 88.5 fL (80.0-94.0); MEAN PLATELET VOLUME 11.3 fL (7.2-11.7); MONO # 0.6 K/uL (0.0-0.8); NEUT # 5.4 K/uL (1.8-7.0); NEUT % 60.9 % (50.0-75.0); RBC 3.96 Mil/uL (4.40-5.90); RED CELL DISTRIBUTION WIDTH 12.8 % (11.5-14.5); WHITE BLOOD COUNT 8.9 K/uL (4.8-10.8)
[2017-06-24 01:38] LABS: ALB/GLOB RATIO 1.1 (1.0-2.1); ALBUMIN 3.4 g/dL (3.5-5.0); ALT/SGPT 21 U/L (21-72); AST/SGOT 14 U/L (17-59); BLOOD UREA NITROGEN 17 mg/dL (9-20); CALCIUM 7.4 mg/dl (8.6-10.4); GFR AFRICAN-AMERICAN > 60; GFR NON-AFRICAN AMERICAN > 60
[2017-06-24] MEDS: Sodium Chloride 0.9% 1,000 ML IV SCH ×2 (03:30→07:30)
[2017-06-24 04:11] LABS: BASO # 0.1 K/uL (0.0-0.2); BASO % 0.7 % (0.0-2.0); EOS % 0.3 % (0.0-4.0); HEMOGLOBIN 11.9 g/dL (12.0-18.0); LYMPH % 36.8 % (20.0-40.0); MEAN CELL VOLUME 88.7 fL (80.0-94.0); MEAN CORPUSCULAR HEMOGLOBIN 30.7 pg (27.0-31.0); MEAN CORPUSCULAR HGB CONC 34.6 g/dL (33.0-37.0); MONO # 0.8 K/uL (0.0-0.8); MONO % 9.4 % (0.0-10.0); NEUT # 4.3 K/uL (1.8-7.0); NEUT % 52.8 % (50.0-75.0); NRBC % 0.1 % (0.0-2.0); RBC 3.89 Mil/uL (4.40-5.90); RED CELL DISTRIBUTION WIDTH 13.2 % (11.5-14.5); WHITE BLOOD COUNT 8.2 K/uL (4.8-10.8)
[2017-06-24 04:27] LABS: ALB/GLOB RATIO 1.1 (1.0-2.1); ALBUMIN 3.2 g/dL (3.5-5.0); ALT/SGPT 34 U/L (21-72); AST/SGOT 15 U/L (17-59); BLOOD UREA NITROGEN 15 mg/dL (9-20); CALCIUM 7.6 mg/dl (8.6-10.4); GFR AFRICAN-AMERICAN > 60; GFR NON-AFRICAN AMERICAN > 60
[2017-06-24] MEDS ORDERED: Dextrose 5%/0.9% NS 1,000 ML IV SCH (07:00)
[2017-06-24] MEDS: (Novolin R) Insulin Human Regular 100 units/ml vial SC SCH ×5 (07:30→22:00)
--- NOTE | 2017-06-24 08:11 | RAD ---
HISTORY: r/o infiltrate COMPARISON: 04/22/2017. FINDINGS: LUNGS: The lungs are well inflated and clear. PLEURA: No significant pleural effusion identified, no pneumothorax apparent. CARDIOVASCULAR: Normal. OSSEOUS STRUCTURES: No significant abnormalities. VISUALIZED UPPER ABDOMEN: Normal. OTHER FINDINGS: None. IMPRESSION: No active pulmonary disease.
--- NOTE | 2017-06-24 09:34 | CP.PCM.PN ---
Subjective - Date & Time of Evaluation Date of Evaluation: 06/24/17 Time of Evaluation: 09:25 - Subjective Subjective: Medical Attending note: Patient seen and examined at bedside. Patient reports he is feeling better. Patient reports mild headache, denies chest pain, denies palpitations, denies abdominal pain, denies nausea, denies vomitting, denies thirsty, denies dryness. Patient is known diabetic, use old insulin from the DR, patient does not have an insulin, insulin syringes, glucometer, because he reports he does not have insurance. patient reports he uses cocaine but does not have good reason as to why he uses cocaine. He has been instructed to stop using cocaine, will cause NV and cardiac arrest. Objective - Vital Signs/Intake and Output Vital Signs (last 24 hours): Temp Pulse Resp BP Pulse Ox 98.6 F 74 19 102/63 99 06/24/17 09:09 06/24/17 08:00 06/24/17 08:00 06/24/17 08:00 06/24/17 08:00 Intake and Output: 06/24/17 06/24/17 06:59 18:59 Intake Total 1774 740 Output Total 700 Balance 1074 740 - Medications Medications: Current Medications Sodium Chloride (Sodium Chloride 0.9%) 1,000 mls @ 250 mls/hr IV .Q4H [facility] Last Admin: 06/24/17 07:30 Dose: Not Given Insulin Human Regular 100 unit (/ Sodium Chloride) 100 mls @ 0 mls/hr IV .Q0M NISSA; Per Protocol PRN Reason: Protocol Dextrose/Sodium Chloride (Dextrose 5%/0.9% Ns 1000 Ml) 1,000 mls @ 100 mls/hr IV .Q10H NISSA Last Admin: 06/24/17 07:30 Dose: 100 mls/hr Insulin Human NPH (Novolin N) 15 unit SC BID NISSA Insulin Human Regular (Novolin R) 0 unit SC ACHS NISSA PRN Reason: Protocol Last Admin: 06/24/17 07:30 Dose: Not Given Pantoprazole Sodium (Protonix Ec Tab) 40 mg PO DAILY NISSA Pneumococcal Polyvalent Vaccine (Pneumovax 23 Vaccine) 0.5 ml IM .ONCE ONE Stop: 06/27/17 10:01 - Labs Labs: 06/24/17 04:02 06/24/17 04:02 - Constitutional Appears: Non-toxic, No Acute Distress - Head Exam Head Exam: NORMAL INSPECTION - Eye Exam Eye Exam: EOMI - ENT Exam ENT Exam: Mucous Membranes Moist - Respiratory Exam Respiratory Exam: Clear to Ausculation Bilateral, NORMAL BREATHING PATTERN. absent: Rales, Rhonchi, Wheezes - Cardiovascular Exam Cardiovascular Exam: REGULAR RHYTHM, +S1, +S2 - GI/Abdominal Exam GI & Abdominal Exam: Soft, Normal Bowel Sounds. absent: Distended, Firm, Guarding, Rigid, Tenderness, Rebound - Extremities Exam Extremities Exam: absent: Pedal Edema, Tenderness - Neurological Exam Neurological Exam: Alert, Awake, Oriented x3 Neuro motor strength exam: Left Upper Extremity: 5, Right Upper Extremity: 5, Left Lower Extremity: 5, Right Lower Extremity: 5 - Psychiatric Exam Psychiatric exam: Normal Affect, Normal Mood - Skin Skin Exam: Dry, Normal Color, Warm Assessment and Plan (1) DKA (diabetic ketoacidoses) Assessment & Plan: patient was admitted to ICU. Patient's received IV fluids, insulin drip. Patient's anion gap has closed. Patient transferred out from ICU this morning. patient is noncompliant on insulin, and using insulin from DR. He has not seen a PMD here. Endocrinology (Dr. Morales) on consult-->help appreciated Novonlin 15 units subqBID Accuchecks QAC and HS Status: Acute (2) Cocaine abuse Assessment & Plan: Counselled to stop doing cocaine Status: Acute (3) Diabetes mellitus Assessment & Plan: check a1c, lipid panel [employer] referral diabetes educator Status: Acute (4) Prophylactic measure Assessment & Plan: lovenox 40mg subq daily SCDS b/l PT/OT eval Social work eval Status: Acute Attending/Attestation - Attestation I have personally seen and examined this patient.: Yes I have fully participated in the care of the patient.: Yes I have reviewed all pertinent clinical information, including history, physical exam and plan: Yes
[2017-06-24] MEDS ORDERED: (Novolin N) Insulin Human Isophane (NPH) 100 u/ml 10 ml vial SC SCH ×2 (10:00→22:00)
[2017-06-24] MEDS: Pantoprazole 40 mg EC Tab PO SCH (11:26)
[2017-06-24] MEDS: Enoxaparin 40 mg Syringe SC SCH (11:29)
[2017-06-24 15:09] LABS: HDL CHOLESTEROL 38 mg/dL (30-70)
[2017-06-24 15:20] LABS: LDL CHOLESTEROL 62 mg/dL (0-129)
--- NOTE | 2017-06-25 01:59 | CON ---
DATE: LOCATION: ICU room 4. HISTORY OF PRESENT ILLNESS: This is a 52-year-old male with known history of type 2 insulin requiring diabetes who apparently stopped his insulin because of nausea, dyspepsia, and vomiting episode and developed hyperglycemic accelerations and was admitted for further workup and management. PAST MEDICAL HISTORY: As mentioned above, history of type 2 insulin requiring diabetes, currently using NPH, taking 30 units subcu every morning as given, history of hypertension and dyslipidemia. FAMILY HISTORY: Positive for diabetes and hypertension. SOCIAL HISTORY: The patient has a supportive family and lives with his daughter. No known substance use and only has occasional social use of alcohol. REVIEW OF SYSTEMS: As mentioned above, admits to generalized body weakness with easy fatigability and tiredness and suboptimal energy level with supervening dizziness and lightheadedness, worse on the day of admission. No chest pain or palpitations or PND, variable and suboptimal with nausea, dyspepsia, and several vomiting episodes. Also admits to marked polyuria and nocturia and polydipsia. PHYSICAL EXAMINATION: GENERAL: Average weight male, in no apparent distress. VITAL SIGNS: Blood pressure of 140/80, pulse of 70 beats per minute and regular, temperature 98, respirations 20. Height is 5 feet 5 inches, weight is 116 pounds. HEENT: Head normocephalic. Eyes: Anicteric with pink conjunctivae. Funduscopy is not possible at this time. Ears, nose, and throat otherwise normal. NECK: Supple. Thyroid gland is normal size. No carotid bruits, no cervical adenopathy. CARDIOPULMONARY: Some adynamic precordium. S1 and S2, rapid and regular. LUNGS: Clear to auscultation. ABDOMEN: Flat, soft with positive bowel sounds. EXTREMITIES: No peripheral edema. Pulses are +2 bilaterally. LABORATORIES: Initial chemistries showed a BUN of 20, sodium 136, potassium 5.2, chloride 92, CO2 of 17, glucose 524, and creatinine is 1.1. and the repeat CO2 today is 22. ASSESSMENT: This is a 52-year-old male with uncontrolled and decompensated type 2 insulin requiring diabetes, presenting here with mild diabetic ketoacidosis and dehydration, related to drug omission, and is now being referred for diabetic evaluation and management. The patient received vigorous IV hydration, intensive insulin therapy. Insulin drip infusion was given and is currently being switched over to a combination of NPH and regular insulin was ordered. However, he was only placed on a sliding scale coverage which is not really recommended specially in the light of making his hospital stay as quick as possible so he also for his outpatient job and work opportunities. We will switch him over to a more physiologic combination of regular insulin given as 12 units before breakfast and dinner to start today. We will add NPH 20 units at bedtime to start tonight. We will multiply the coverage to very low dose algorithm using regular insulin coverage with glucose level over 300 to prevent overlap of the insulin and also hypoglycemia thereof daily. We will obtain serum chemistries and supplement accordingly as needed. We will follow. Jordyn Morales MD
[2017-06-25] MEDS: (Novolin R) Insulin Human Regular 100 units/ml vial SC SCH ×4 (08:14→16:13)
[2017-06-25 08:44] VITALS: RESP 15
[2017-06-25] MEDS: Enoxaparin 40 mg Syringe SC SCH (09:47)
[2017-06-25] MEDS: Pantoprazole 40 mg EC Tab PO SCH (09:47)
[2017-06-25 09:58] LABS: BASO % 0.6 % (0.0-2.0); EOS # 0.1 K/uL (0.0-0.7); EOS % 0.8 % (0.0-4.0); HEMOGLOBIN 12.7 g/dL (12.0-18.0); LYMPH # 2.5 K/uL (1.0-4.3); LYMPH % 34.3 % (20.0-40.0); MEAN CELL VOLUME 87.7 fL (80.0-94.0); MEAN CORPUSCULAR HEMOGLOBIN 30.5 pg (27.0-31.0); MEAN CORPUSCULAR HGB CONC 34.8 g/dL (33.0-37.0); MEAN PLATELET VOLUME 10.6 fL (7.2-11.7); MONO # 0.6 K/uL (0.0-0.8); MONO % 7.9 % (0.0-10.0); NEUT # 4.1 K/uL (1.8-7.0); NEUT % 56.4 % (50.0-75.0); RBC 4.16 Mil/uL (4.40-5.90); RED CELL DISTRIBUTION WIDTH 12.9 % (11.5-14.5); WHITE BLOOD COUNT 7.3 K/uL (4.8-10.8)
[2017-06-25 10:16] LABS: ALBUMIN 2.8 g/dL (3.5-5.0); ALT/SGPT 21 U/L (21-72); AST/SGOT 16 U/L (17-59); BLOOD UREA NITROGEN 10 mg/dL (9-20); CALCIUM 7.5 mg/dl (8.6-10.4); GFR AFRICAN-AMERICAN > 60; GFR NON-AFRICAN AMERICAN > 60
[2017-06-25] MEDS ORDERED: Potassium Chloride 20 mEq ER Tab PO STA (10:19)
[2017-06-25] MEDS: Potassium Chloride 20 mEq ER Tab PO SCH ×2 (10:54→15:49)
[2017-06-25 11:47] VITALS: O2SAT 98
[2017-06-25] MEDS ORDERED: Pneumococcal 23-Valent Vaccine IM ONE ×2 (15:45→16:00)
[2017-06-25] MEDS ORDERED: Influenza Vaccine 60 mcg/0.5 mL SYR (4YR UP) IM ONE ×2 (15:45→16:00)
[2017-06-25] MEDS ORDERED: (Novolin R) Insulin Human Regular 100 units/ml vial SC SCH (16:30)
--- NOTE | 2017-06-25 18:19 | CP.PCM.DIS ---
<Reynaldo Campbell - Last Filed: 06/26/17 06:58> Provider - Provider Date of Admission: 06/23/17 20:59 Attending physician: Lila Muro DO Consults: Ida - Dr. Jordyn Morales Time Spent in preparation of Discharge (in minutes): 45 Hospital Course - Lab Results Lab Results: Most Recent Lab Values WBC 7.3 K/uL (4.8-10.8) 06/25/17 09:55 RBC 4.16 Mil/uL (4.40-5.90) L 06/25/17 09:55 Hgb 12.7 g/dL (12.0-18.0) 06/25/17 09:55 Hct 36.4 % (35.0-51.0) 06/25/17 09:55 MCV 87.7 fL (80.0-94.0) 06/25/17 09:55 MCH 30.5 pg (27.0-31.0) 06/25/17 09:55 MCHC 34.8 g/dL (33.0-37.0) 06/25/17 09:55 RDW 12.9 % (11.5-14.5) 06/25/17 09:55 Plt Count 138 K/uL (130-400) 06/25/17 09:55 MPV 10.6 fL (7.2-11.7) 06/25/17 09:55 Neut % (Auto) 56.4 % (50.0-75.0) 06/25/17 09:55 Lymph % (Auto) 34.3 % (20.0-40.0) 06/25/17 09:55 [place] % (Auto) 7.9 % (0.0-10.0) 06/25/17 09:55 Eos % (Auto) 0.8 % (0.0-4.0) 06/25/17 09:55 Baso % (Auto) 0.6 % (0.0-2.0) 06/25/17 09:55 Neut # (Auto) 4.1 K/uL (1.8-7.0) 06/25/17 09:55 Lymph # (Auto) 2.5 K/uL (1.0-4.3) 06/25/17 09:55 [place] # (Auto) 0.6 K/uL (0.0-0.8) 06/25/17 09:55 Eos # (Auto) 0.1 K/uL (0.0-0.7) 06/25/17 09:55 Baso # (Auto) 0.0 K/uL (0.0-0.2) 06/25/17 09:55 Puncture Site Rba 06/23/17 20:30 pCO2 40 mm/Hg (35-45) 06/23/17 20:30 pO2 86 mm/Hg (80-100) 06/23/17 20:30 HCO3 16.9 mmol/L (21-28) L 06/23/17 20:30 ABG pH 7.23 (7.35-7.45) L 06/23/17 20:30 ABG Total CO2 18.0 mmol/L (22-28) L 06/23/17 20:30 ABG O2 Saturation 96.3 % (95-98) 06/23/17 20:30 ABG Base Excess -10.2 mmol/L (-2.0-3.0) L 06/23/17 20:30 ABG Hemoglobin 13.6 g/dL (11.7-17.4) 06/23/17 20:30 ABG Carboxyhemoglobin 1.2 % (0.5-1.5) 06/23/17 20:30 POC ABG HHb (Measured) 3.6 % (0.0-5.0) 06/23/17 20:30 ABG Methemoglobin 1.0 % (0.0-3.0) 06/23/17 20:30 Kp Test Na 06/23/17 20:30 A-a O2 Difference 14.0 mm/Hg 06/23/17 20:30 Respiratory Index 0.2 06/23/17 20:30 Hgb O2 Saturation 94.2 % (95.0-98.0) L 06/23/17 20:30 Liter Flow 0 06/23/17 20:30 FiO2 21.0 % 06/23/17 20:30 Sodium 141 mmol/L (132-148) 06/25/17 09:55 Potassium 2.9 mmol/L (3.6-5.2) L 06/25/17 09:55 Chloride 105 mmol/L (98-107) 06/25/17 09:55 Carbon Dioxide 24 mmol/L (22-30) 06/25/17 09:55 Anion Gap 14 (10-20) 06/25/17 09:55 BUN 10 mg/dL (9-20) 06/25/17 09:55 Creatinine 0.8 mg/dL (0.8-1.5) 06/25/17 09:55 Est GFR ( Amer) > 60 06/25/17 09:55 Est GFR (Non-Af Amer) > 60 06/25/17 09:55 POC Glucose (mg/dL) 328 mg/dL (65-110) H 06/25/17 16:08 Random Glucose 272 mg/dL (75-110) H 06/25/17 09:55 Hemoglobin A1c 11.6 % (4.2-6.5) H 06/24/17 09:29 Calcium 7.5 mg/dl (8.6-10.4) L 06/25/17 09:55 Phosphorus 2.2 mg/dL (2.5-4.5) L 06/24/17 01:13 Magnesium 1.7 mg/dL (1.6-2.3) 06/25/17 09:55 Total Bilirubin 0.6 mg/dL (0.2-1.3) 06/25/17 09:55 AST 16 U/L (17-59) L 06/25/17 09:55 ALT 21 U/L (21-72) D 06/25/17 09:55 Alkaline Phosphatase 58 U/L (38-126) 06/25/17 09:55 Total Protein 5.5 g/dL (6.3-8.3) L 06/25/17 09:55 Albumin 2.8 g/dL (3.5-5.0) L 06/25/17 09:55 Globulin 2.7 gm/dL (2.2-3.9) 06/25/17 09:55 Albumin/Globulin Ratio 1.0 (1.0-2.1) 06/25/17 09:55 Triglycerides 142 mg/dL (0-149) 06/24/17 09:29 Cholesterol 137 mg/dL (0-199) 06/24/17 09:29 LDL Cholesterol Direct 62 mg/dL (0-129) 03/27/18 09:29 HDL Cholesterol 38 mg/dL (30-70) 06/24/17 09:29 Lipase 77 U/L (23-300) 06/23/17 19:35 Urine Color Straw (YELLOW) 06/23/17 20:21 Urine Clarity Clear (Clear) 06/23/17 20:21 Urine pH 5.0 (5.0-8.0) 06/23/17 20:21 Ur Specific [place] 1.027 (1.003-1.030) 06/23/17 20:21 Urine Protein Negative mg/dL (NEGATIVE) 06/23/17 20:21 Urine Glucose (UA) 3+ mg/dL (Normal) H 06/23/17 20:21 Urine Ketones 2+ mg/dL (NEGATIVE) H 06/23/17 20:21 Urine Blood Negative (NEGATIVE) 06/23/17 20:21 Urine Nitrate Negative (NEGATIVE) 06/23/17 20:21 Urine Bilirubin Negative (NEGATIVE) 06/23/17 20:21 Urine Urobilinogen Normal mg/dL (0.2-1.0) 06/23/17 20:21 Ur Leukocyte Esterase Neg Isidra/uL (Negative) 06/23/17 20:21 Urine WBC (Auto) < 1 /hpf (0-5) 06/23/17 20:21 Urine Opiates Screen Negative (NEGATIVE) 06/23/17 19:52 Urine Methadone Screen Negative (NEGATIVE) 06/23/17 19:52 Ur Barbiturates Screen Negative (NEGATIVE) 06/23/17 19:52 Ur Phencyclidine Scrn Negative (NEGATIVE) 06/23/17 19:52 Ur Amphetamines Screen Negative (NEGATIVE) 06/23/17 19:52 U Benzodiazepines Scrn Negative (NEGATIVE) 06/23/17 19:52 U Oth Cocaine Metabols Positive (NEGATIVE) H 06/23/17 19:52 U Cannabinoids Screen Negative (NEGATIVE) 06/23/17 19:52 Alcohol, Quantitative < 10 mg/dl (0-10) 06/23/17 19:35 Serum Ketones Small (NEGATIVE) 06/23/17 20:21 - Hospital Course Hospital Course: As per admission documentation 52 year old male with past medical history of DM type II presents to the ER for elevated blood sugar. Patient states he did not take his insulin for 3 days because his stomach was bothering him. Patient states he usually takes 30 units of Insulin (does not recall what kind) every morning. Patient states the abdominal pain felt like acid. He states he had a bowel movement this morning. Patient states the abdominal pain has not stopped. Patient denies chest pain , palpitations, shortness of breath, nausea or vomiting. Hospital Course Patient was admitted for DKA on 06/23. He was initially sent to the ICU for insulin drip. Patient is known diabetic and was using his old insulin from the DR. Patient reported that he did not have any insulin, insulin syringes, glucometer because he reports he does not have insurance. Patient tested positive for cocaine on UDS. Patient admitted to cocaine use but did not have good reason as to why he uses. He was instructed to stop using cocaine, as it can cause MA and cardiac arrest. Patient was treated with fluids, insulin and electrolytes repleted as needed. Hgb A1c was found to be 11.6. Anion gap closed and patients symptoms resolved. Patient was discharged on 06/25 with the following instructions. Cloth Brushing And Sueding Supervisor Dr. Jordyn Morales was consulted to help devise insulin regiment for patient. He is to follow up with her as an outpatient for further management of his diabetes. Discharge Instructions Patient is to be discharged home per Dr. Muro. Patient is to follow up with the [facility]. Please call and schedule an appointment within one week of being discharged. Patient is to follow up with Dr. Jordyn Morales within two weeks of being discharged. If you experience any new or worsening symptoms, please go directly to the nearest emergency location. Patient was instructed to not take any old insulin and only use new medications. New Prescriptions given: Insulin Human Isophane (NPH) 14 units SC HS - disp 1 bottle Insulin Human Regular 8 units SC ACBD - disp 1 bottle Prescriptions given for Lancets, Test Strips and Syringes - 100 count of each [facility]: [address], [place] [address] Physical Exam Appears: Non-toxic, No Acute Distress Head Exam: NORMAL INSPECTION Eye Exam: EOMI ENT Exam: Mucous Membranes Moist Respiratory Exam: Clear to Ausculation Bilateral, NORMAL BREATHING PATTERN. absent: Rales, Rhonchi, Wheezes Cardiovascular Exam: REGULAR RHYTHM, +S1, +S2 GI & Abdominal Exam: Soft, Normal Bowel Sounds. absent: Distended, Firm, Guarding, Rigid, Tenderness, Rebound Extremities Exam: absent: Pedal Edema, Tenderness Neurological Exam: Alert, Awake, Oriented x3 Neuro motor strength exam: Left Upper Extremity: 5, Right Upper Extremity: 5, Left Lower Extremity: 5, Right Lower Extremity: 5 Psychiatric exam: Normal Affect, Normal Mood Skin Exam: Dry, Normal Color, Warm Discharge Exam - Head Exam Head Exam: NORMAL INSPECTION Discharge Plan - Discharge Medications Prescriptions: RX: Insulin Human Isophane (NPH) [Novolin N] 14 unit SC HS #1 bottle RX: Insulin Human Regular [Novolin R] 8 unit SC ACBD #1 bottle - Follow Up Plan Condition: CRITICAL Disposition: HOME/ ROUTINE Instructions: Blood Glucose Monitoring, Diabetes Type 2 (DC), Diabetic Ketoacidosis (DC), Sick Day Management for Diabetics, Diabetes and Diet Additional Instructions: Patient is to be discharged home per Dr. Muro. Patient is to follow up with the [facility]. Please call and schedule an appointment within one week of being discharged. Patient is to follow up with Dr. Jordyn Morales within two weeks of being discharged. If you experience any new or worsening symptoms, please go directly to the nearest emergency location. Patient was instructed to not take any old insulin and only use new medications. New Prescriptions given: Insulin Human Isophane (NPH) 14 units SC HS - disp 1 bottle Insulin Human Regular 8 units SC ACBD - disp 1 bottle Prescriptions given for Lancets, Test Strips and Syringes - 100 count of each [facility]: [address] [place] [address] Referrals: Jordyn Morales MD [Medical Doctor] - <Lila Muro V - Last Filed: 06/26/17 07:49> Provider - Provider Date of Admission: 06/23/17 20:59 Attending physician: Lila Muro DO Diagnosis - Discharge Diagnosis (1) DKA (diabetic ketoacidoses) Status: Acute (2) Cocaine abuse Status: Acute (3) Diabetes mellitus Status: Acute (4) Prophylactic measure Status: Acute Hospital Course - Lab Results Lab Results: Most Recent Lab Values WBC 7.3 K/uL (4.8-10.8) 06/25/17 09:55 RBC 4.16 Mil/uL (4.40-5.90) L 06/25/17 09:55 Hgb 12.7 g/dL (12.0-18.0) 06/25/17 09:55 Hct 36.4 % (35.0-51.0) 06/25/17 09:55 MCV 87.7 fL (80.0-94.0) 06/25/17 09:55 MCH 30.5 pg (27.0-31.0) 06/25/17 09:55 MCHC 34.8 g/dL (33.0-37.0) 06/25/17 09:55 RDW 12.9 % (11.5-14.5) 06/25/17 09:55 Plt Count 138 K/uL (130-400) 06/25/17 09:55 MPV 10.6 fL (7.2-11.7) 06/25/17 09:55 Neut % (Auto) 56.4 % (50.0-75.0) 06/25/17 09:55 Lymph % (Auto) 34.3 % (20.0-40.0) 06/25/17 09:55 [place] % (Auto) 7.9 % (0.0-10.0) 06/25/17 09:55 Eos % (Auto) 0.8 % (0.0-4.0) 06/25/17 09:55 Baso % (Auto) 0.6 % (0.0-2.0) 06/25/17 09:55 Neut # (Auto) 4.1 K/uL (1.8-7.0) 06/25/17 09:55 Lymph # (Auto) 2.5 K/uL (1.0-4.3) 06/25/17 09:55 [place] # (Auto) 0.6 K/uL (0.0-0.8) 06/25/17 09:55 Eos # (Auto) 0.1 K/uL (0.0-0.7) 06/25/17 09:55 Baso # (Auto) 0.0 K/uL (0.0-0.2) 06/25/17 09:55 Puncture Site Rba 06/23/17 20:30 pCO2 40 mm/Hg (35-45) 06/23/17 20:30 pO2 86 mm/Hg (80-100) 06/23/17 20:30 HCO3 16.9 mmol/L (21-28) L 06/23/17 20:30 ABG pH 7.23 (7.35-7.45) L 06/23/17 20:30 ABG Total CO2 18.0 mmol/L (22-28) L 06/23/17 20:30 ABG O2 Saturation 96.3 % (95-98) 06/23/17 20:30 ABG Base Excess -10.2 mmol/L (-2.0-3.0) L 06/23/17 20:30 ABG Hemoglobin 13.6 g/dL (11.7-17.4) 06/23/17 20:30 ABG Carboxyhemoglobin 1.2 % (0.5-1.5) 06/23/17 20:30 POC ABG HHb (Measured) 3.6 % (0.0-5.0) 06/23/17 20:30 ABG Methemoglobin 1.0 % (0.0-3.0) 06/23/17 20:30 Kp Test Na 06/23/17 20:30 A-a O2 Difference 14.0 mm/Hg 06/23/17 20:30 Respiratory Index 0.2 06/23/17 20:30 Hgb O2 Saturation 94.2 % (95.0-98.0) L 06/23/17 20:30 Liter Flow 0 06/23/17 20:30 FiO2 21.0 % 06/23/17 20:30 Sodium 141 mmol/L (132-148) 06/25/17 09:55 Potassium 2.9 mmol/L (3.6-5.2) L 06/25/17 09:55 Chloride 105 mmol/L (98-107) 06/25/17 09:55 Carbon Dioxide 24 mmol/L (22-30) 06/25/17 09:55 Anion Gap 14 (10-20) 06/25/17 09:55 BUN 10 mg/dL (9-20) 06/25/17 09:55 Creatinine 0.8 mg/dL (0.8-1.5) 06/25/17 09:55 Est GFR ( Amer) > 60 06/25/17 09:55 Est GFR (Non-Af Amer) > 60 06/25/17 09:55 POC Glucose (mg/dL) 328 mg/dL (65-110) H 06/25/17 16:08 Random Glucose 272 mg/dL (75-110) H 06/25/17 09:55 Hemoglobin A1c 11.6 % (4.2-6.5) H 06/24/17 09:29 Calcium 7.5 mg/dl (8.6-10.4) L 06/25/17 09:55 Phosphorus 2.2 mg/dL (2.5-4.5) L 06/24/17 01:13 Magnesium 1.7 mg/dL (1.6-2.3) 06/25/17 09:55 Total Bilirubin 0.6 mg/dL (0.2-1.3) 06/25/17 09:55 AST 16 U/L (17-59) L 06/25/17 09:55 ALT 21 U/L (21-72) D 06/25/17 09:55 Alkaline Phosphatase 58 U/L (38-126) 06/25/17 09:55 Total Protein 5.5 g/dL (6.3-8.3) L 06/25/17 09:55 Albumin 2.8 g/dL (3.5-5.0) L 06/25/17 09:55 Globulin 2.7 gm/dL (2.2-3.9) 06/25/17 09:55 Albumin/Globulin Ratio 1.0 (1.0-2.1) 06/25/17 09:55 Triglycerides 142 mg/dL (0-149) 06/24/17 09:29 Cholesterol 137 mg/dL (0-199) 06/24/17 09:29 LDL Cholesterol Direct 62 mg/dL (0-129) 06/24/17 09:29 HDL Cholesterol 38 mg/dL (30-70) 06/24/17 09:29 Lipase 77 U/L (23-300) 06/23/17 19:35 Urine Color Straw (YELLOW) 06/23/17 20:21 Urine Clarity Clear (Clear) 06/23/17 20:21 Urine pH 5.0 (5.0-8.0) 06/23/17 20:21 Ur Specific [place] 1.027 (1.003-1.030) 06/23/17 20:21 Urine Protein Negative mg/dL (NEGATIVE) 06/23/17 20:21 Urine Glucose (UA) 3+ mg/dL (Normal) H 06/23/17 20:21 Urine Ketones 2+ mg/dL (NEGATIVE) H 06/23/17 20:21 Urine Blood Negative (NEGATIVE) 06/23/17 20:21 Urine Nitrate Negative (NEGATIVE) 06/23/17 20:21 Urine Bilirubin Negative (NEGATIVE) 06/23/17 20:21 Urine Urobilinogen Normal mg/dL (0.2-1.0) 06/23/17 20:21 Ur Leukocyte Esterase Neg Isidra/uL (Negative) 06/23/17 20:21 Urine WBC (Auto) < 1 /hpf (0-5) 06/23/17 20:21 Urine Opiates Screen Negative (NEGATIVE) 06/23/17 19:52 Urine Methadone Screen Negative (NEGATIVE) 06/23/17 19:52 Ur Barbiturates Screen Negative (NEGATIVE) 06/23/17 19:52 Ur Phencyclidine Scrn Negative (NEGATIVE) 06/23/17 19:52 Ur Amphetamines Screen Negative (NEGATIVE) 06/23/17 19:52 U Benzodiazepines Scrn Negative (NEGATIVE) 06/23/17 19:52 U Oth Cocaine Metabols Positive (NEGATIVE) H 06/23/17 19:52 U Cannabinoids Screen Negative (NEGATIVE) 06/23/17 19:52 Alcohol, Quantitative < 10 mg/dl (0-10) 06/23/17 19:35 Serum Ketones Small (NEGATIVE) 06/23/17 20:21 Attending/Attestation - Attestation I have personally seen and examined this patient.: Yes I have fully participated in the care of the patient.: Yes I have reviewed all pertinent clinical information, including history, physical exam and plan: Yes Notes (Text): This is late computer entry for 06/25/17. Patient seen, examined and case discussed with medical geneticist. Patient seen at bedside. Patient denies acute complaints. Patient was provided diabetic education upon discharge by nursing staff with support of indemand nurse assessor including use of glucometer, check sugars, and demonstrating how to use insulin. Patient is aware of risks associated with diabetes including heart attack, stroke, kidney failure. Patient is also aware and counselled on the risk of using cocaine including heart attack and cardiac arrest and strongly suggested to stop. Patient recommended to [facility] since he lives in [place]. patient provided insulin at dosages recommended by international tax manager. provided glucometer upon discharge as well as test strips and lancets. Patient provided flu and pneumonia vaccines upon discharge. Discharge Diagnoses: (1) DKA (diabetic ketoacidoses)-->resolved Uncontrolled diabetes Assessment & Plan: patient was admitted to ICU on 06/23/17. Patient's received IV fluids, insulin drip. Patient's anion gap has closed. Patient transferred out from ICU on Patient was noncompliant on insulin, and using insulin from DR. He has not seen a PMD in the [place]. Endocrinology (Dr. Morales) on consult-->help appreciated Prescriptions upon discharge: Insulin Human Isophane (NPH) 14 units SC HS - disp 1 bottle Insulin Human Regular 8 units SC ACBD - disp 1 bottle Prescriptions given for Lancets, Test Strips and Syringes - 100 count of each When patient establishes care with the [facility], suggest for referrals to podiatry and opthalmology for annual diabetic screening exams, and prophylactic aspirin, lucia/arb for renoprotention, and statin. (2) Cocaine abuse-->resolved Assessment & Plan: Counselled to stop doing cocaine (3) Prophylactic measure Assessment & Plan: lovenox 40mg subq daily SCDS b/l PT/OT eval Social work eval Status: Acute
--- NOTE | 2017-06-25 21:37 | PN ---
DATE: ENDO FOLLOWUP NOTE LOCATION: ICU, room 4 This is a 52-year-old male with history of uncontrolled type 2 insulin requiring diabetes, now being followed closely for metabolic management. His glycemic levels are fluctuating but improved and the latest glucose levels today range from 89 to 149 mg/dL. He was also low early this morning after insulin regimen was subjected. As reviewed, her glycemic levels are fluctuating but improved with glucose values ranging from 89 to 149 and 185 mg/dL. The latest chemistries showed BUN of 10, sodium 141, potassium 2.9, chloride 105, CO2 of 24, glucose 272, creatinine 0.8. At this time, we will recommend a combination of Humulin regular insulin and would recommend a combination of NPH given twice daily if regular insulin given is 8 units subcu t.i.d. before meals to start today. We will also change the IV basal insulin using at 14 units subcu at bedtime daily. We will add Humalog 8 units subcu t.i.d. before meals as noted. We will follow up with you. Jordyn Morales MD
[2017-06-25] MEDS ORDERED: (Novolin N) Insulin Human Isophane (NPH) 100 u/ml 10 ml vial SC SCH (22:00)
--- NOTE | 2017-06-25 23:17 | CARD ---
APPROVED REPORT EKG Measurement Heart [id number] <Conclusion> Normal sinus rhythm Normal ECG
[2017-06-26 11:28] VITALS: BP 125/80; PULSE 79; TEMP 98
[2017-06-27] MEDS ORDERED: Influenza Vaccine 60 mcg/0.5 mL SYR (4YR UP) IM ONE (10:00)
[2017-06-27] MEDS ORDERED: Pneumococcal 23-Valent Vaccine IM ONE (10:00)
== END 2017-06-25 17:00 | disposition home or self-care (01) | DRG 638 ==
LOC: C.ER 18:34 → C.9E 20:59 → C.9I 20:59
PROVIDERS: ADMIT Hospitalist; ATTEND Hospitalist
DX: E11.10 Type 2 diabetes mellitus with ketoacidosis without coma (principal); R17 Unspecified jaundice; E86.0 Dehydration; E78.5 Hyperlipidemia, unspecified; F14.10 Cocaine abuse, uncomplicated; I10 Essential (primary) hypertension; Z79.4 Long term (current) use of insulin

== ENCOUNTER 2018-03-25 10:15 | Inpatient (IN) | payer MEDICAID, OTHER ==
[2018-03-25] MEDS ORDERED: Sodium Chloride 0.9% 1,000 ML IV ONE ×3 (11:38→15:46)
[2018-03-25] MEDS ORDERED: Vancomycin 1 gm/NS 200 ml 1 GM/200 ML BAG IVPB STA (11:39)
[2018-03-25] MEDS ORDERED: Piperacillin/Tazobact 3.375 GM in Sodium Chloride 100 ML IVPB STA (11:40)
--- NOTE | 2018-03-25 11:52 | C.PDOC ---
History Of Present Illness 52 y/o male pt with hx of DM presents to the ER c/o left foot redness and swelling progressively worse with subjective fever for x1 week. Pt denies injury, weakness and numbness of lower extremity. Time Seen by Provider: 03/25/18 10:52 Chief Complaint (Nursing): Abnormal Skin Integrity History Per: Patient History/Exam Limitations: no limitations Onset/Duration Of Symptoms: Days (x1 week) Current Symptoms Are (Timing): Still Present Location Of Injury: Left: Leg Past Medical History Reviewed: Historical Data, Nursing Documentation, Vital Signs Vital Signs: Last Vital Signs Temp 98 F 03/25/18 10:24 Pulse 78 03/25/18 10:24 Resp 18 03/25/18 10:24 BP 172/91 H 03/25/18 10:24 Pulse Ox 98 03/25/18 10:24 Family History: States: Unknown Family Hx - Social History Hx Alcohol Use: Yes Hx Substance Use: No - Immunization History Hx Tetanus Toxoid Vaccination: No Hx Influenza Vaccination: No Review Of Systems Constitutional: Positive for: Fever (subjective ). Negative for: Other (leg injury) Skin: Positive for: Other (left lower leg redness and swelling ) Neurological: Negative for: Weakness, Numbness Physical Exam - Physical Exam Appears: Non-toxic, Other (unwell ) Skin: Dry, No Rash, Other (very warm ) Head: Atraumatic, Normacephalic Eye(s): bilateral: PERRL, EOMI Ear(s): Bilateral: Normal Oral Mucosa: Dry Chest: Symmetrical Cardiovascular: Other (tachycardiac ) Respiratory: Normal Breath Sounds, No Rales, No Rhonchi, No Wheezing Gastrointestinal/Abdominal: Soft, No Tenderness, No Distention, No Guarding, No Rebound Extremity: No Tenderness, No Pedal Edema, No Deformity, Swelling (LLE; erythematous to foot, spreading up to anterior lower leg with markedly hot LLE more than rest of body ), Other (RLE: normal pulse, FROM, no swelling or redness; ) Neurological/Psych: Oriented x3, Normal Speech, Normal Cognition, Normal Motor, Normal Sensation ED Course And Treatment - Laboratory Results Result Diagrams: 03/25/18 12:05 03/25/18 12:05 O2 Sat by Pulse Oximetry: 98 (RA) Pulse Ox Interpretation: Normal Medical Decision Making Medical Decision Making: Impression: LLE swelling and redness Plans: -- VBG -- chem labs -- blood work -- IV fluids -- vancomycin -- zosyn -- blood cx -- urine cx -- UA discussed with Dr Moni Magaña, will admit to him. Disposition Discussed With Dr.: Abraham Magaña Doctor Will See Patient In The: Hospital - Disposition Disposition: HOSPITALIZED Disposition Time: 14:00 Condition: SERIOUS Forms: [facility] ([place]) - Clinical Impression Clinical Impression: Cellulitis of left lower extremity, Uncontrolled diabetes mellitus - PA / WARRANTY COORDINATOR / Resident Statement MD/ has reviewed & agrees with the documentation as recorded. - Scribe Statement The provider has reviewed the documentation as recorded by the Ren Steiner Do All medical record entries made by the Scribe were at my direction and personally dictated by me. I have reviewed the chart and agree that the record accurately reflects my personal performance of the history, physical exam, medical decision making, and the department course for this patient. I have also personally directed, reviewed, and agree with the discharge instructions and disposition.
[2018-03-25 12:07] LABS: VENOUS BLOOD GAS BASE EXCESS -2.4 mmol/L (0.0-2.0); VENOUS BLOOD GAS PCO2 50 mmHg (40-60); VENOUS BLOOD GAS PO2 22 mm/Hg (30-55)
[2018-03-25 12:14] LABS: BASO % 0.3 % (0.0-2.0); EOS % 0.2 % (0.0-4.0); HEMOGLOBIN 13.5 g/dL (12.0-18.0); LYMPH % 6.4 % (20.0-40.0); MEAN CELL VOLUME 88.3 fL (80.0-94.0); MEAN CORPUSCULAR HEMOGLOBIN 30.2 pg (27.0-31.0); MEAN CORPUSCULAR HGB CONC 34.2 g/dL (33.0-37.0); MEAN PLATELET VOLUME 10.6 fL (7.2-11.7); MONO # 0.9 K/uL (0.0-0.8); MONO % 6.2 % (0.0-10.0); NEUT % 86.9 % (50.0-75.0); PLATELET COUNT 221 K/uL (130-400); RBC 4.49 Mil/uL (4.40-5.90); RED CELL DISTRIBUTION WIDTH 13.1 % (11.5-14.5)
[2018-03-25] MEDS ORDERED: Sodium Chloride 0.9% 1,000 ML ONE ×2 (12:15→13:23)
[2018-03-25] MEDS ORDERED: Piperacillin/Tazobact 3.375 gm 100 ML IVPB ONE (12:30)
[2018-03-25 12:37] LABS: ALB/GLOB RATIO 1.1 (1.0-2.1); ALBUMIN 4.4 g/dL (3.5-5.0); ALT/SGPT 21 U/L (21-72); AST/SGOT 18 U/L (17-59); BLOOD UREA NITROGEN 22 mg/dL (9-20); CALCIUM 9.2 mg/dl (8.6-10.4); GFR NON-AFRICAN AMERICAN > 60
[2018-03-25 12:38] LABS: LYMPHOCYTE 7 % (20-40); MONOCYTE 7 % (0-10); NEUTROPHIL 86 % (50-75); TOTAL CELLS COUNTED 100
[2018-03-25 12:39] LABS: PLATELET ESTIMATE NORMAL (NORMAL)
--- NOTE | 2018-03-25 13:10 | CP.PCM.HP ---
<Andre Hill - Last Filed: 03/25/18 13:40> History of Present Illness - History of Present Illness History of Present Illness: Andre Hill PGY1 H&P for Dr. Foster CC: L foot redness Pt is a 52M with PMH DM presenting to the ED for redness and swelling of the L foot for 1 week. He reports it started as a redness around the ankle, and began to swell. He reports associated fever and chills at home. He denies any trauma, falls, injection into site, bug bites, or drainage from foot. He denies taking anything to help the swelling. He reports the swelling has now improved sligh tly. He denies numbness/tingling to the area. He also reports some shortness of breath for the past week with walking. He reports increased thirst and weight loss. Pt denies nausea, vomiting, diarrhea, dysuria, increased urinary frequency, or chest pain. 12 point ROS was reviewed and otherwise negative except for what is stated above. SxH: R retina 2009 SocH: denies smoking. etoh 2x week. weekly cocaine. unemployed. FamH: mom, dad - DM Allergies: NKDA Meds: short acting insulin 15-20u daily with breakfast PMD: none Present on Admission - Present on Admission Any Indicators Present on Admission: Yes History of Uncontrolled Diabetes: Yes Review of Systems - Review of Systems Review of Systems: as per HPI Past Patient History - Past Medical History & Family History Past Medical History?: Yes - Past Social History Smoking Status: Never Smoked - CARDIAC Hx Cardiac Disorders: No - PULMONARY Hx Respiratory Disorders: No - NEUROLOGICAL Hx Neurological Disorder: No - HEENT Hx HEENT Problems: No - RENAL Hx Chronic Kidney Disease: No - ENDOCRINE/METABOLIC Hx Diabetes Mellitus Type 2: Yes - HEMATOLOGICAL/ONCOLOGICAL Hx Blood Disorders: No - INTEGUMENTARY Hx Dermatological Problems: No - MUSCULOSKELETAL/RHEUMATOLOGICAL Hx Musculoskeletal Disorders: No - GASTROINTESTINAL Hx Gastrointestinal Disorders: No - PSYCHIATRIC Hx Substance Use: No - SURGICAL HISTORY Hx Surgeries: Yes Other/Comment: Rt. eye surgery - ANESTHESIA Hx Anesthesia: Yes Hx Anesthesia Reactions: No Meds Allergies/Adverse Reactions: Allergies Allergy/AdvReac Type Severity Reaction Status Date / Time No Known Allergies Allergy Unverified 04/22/17 18:41 Physical Exam - Constitutional Appears: Well, No Acute Distress - Head Exam Head Exam: ATRAUMATIC, NORMOCEPHALIC - Eye Exam Eye Exam: EOMI, PERRL Pupil Exam: NORMAL ACCOMODATION - ENT Exam ENT Exam: Mucous Membranes Moist - Neck Exam Neck exam: Positive for: Full Rom - Respiratory Exam Respiratory Exam: Clear to Auscultation Bilateral, NORMAL BREATHING PATTERN. absent: Rales, Rhonchi, Wheezes - Cardiovascular Exam Cardiovascular Exam: REGULAR RHYTHM, +S1, +S2. absent: Gallop, Rubs, Systolic Murmur - GI/Abdominal Exam GI & Abdominal Exam: Normal Bowel Sounds, Soft. absent: Distended, Firm, Tenderness - Extremities Exam Additional comments: LLE: erythema and edema of L foot up to L ankle, with bruising on anterior mid foot. no drainage noted. DP pulse not palpable dyskeratotic and yellowing nail changes with scale of toes on b/l feet - Neurological Exam Neurological exam: Alert, CN II-XII Intact, Oriented x3, Reflexes Normal - Psychiatric Exam Psychiatric exam: Normal Affect, Normal Mood Results - Vital Signs Recent Vital Signs: Last Vital Signs Temp 102.8 F H 03/25/18 11:58 Pulse 78 03/25/18 10:24 Resp 18 03/25/18 10:24 BP 172/91 H 03/25/18 10:24 Pulse Ox 98 03/25/18 11:58 - Labs Result Diagrams: 03/25/18 12:05 03/25/18 12:05 Labs: Laboratory Results - last 24 hr 03/25/18 03/25/18 03/25/18 11:55 12:05 12:05 WBC 15.0 H D RBC 4.49 Hgb 13.5 Hct 39.6 MCV 88.3 MCH 30.2 MCHC 34.2 RDW 13.1 Plt Count 221 MPV 10.6 Neut % (Auto) 86.9 H Lymph % (Auto) 6.4 L [place] % (Auto) 6.2 Eos % (Auto) 0.2 Baso % (Auto) 0.3 Neut # (Auto) 13.0 H Lymph # (Auto) 1.0 [place] # (Auto) 0.9 H Eos # (Auto) 0.0 Baso # (Auto) 0.0 Neutrophils % (Manual) 86 H Lymphocytes % (Manual) 7 L Monocytes % (Manual) 7 Platelet Estimate Normal pO2 22 L VBG pH 7.30 L VBG pCO2 50 VBG HCO3 21.2 VBG Total CO2 26.1 VBG O2 Sat (Calc) 41.1 VBG Base Excess -2.4 L VBG Potassium 4.3 Sodium 137.0 136 Chloride 99.0 95 L Glucose 426 H* Lactate 2.0 Crit Value Called To Ya bishop Crit Value Called By Barbara peck Crit Value Read Back Y Blood Gas Notified Time 1206 Potassium 4.2 Carbon Dioxide 25 Anion Gap 21 H BUN 22 H Creatinine 0.9 Est GFR ( Amer) > 60 Est GFR (Non-Af Amer) > 60 Random Glucose 453 H* D Calcium 9.2 Total Bilirubin 1.0 AST 18 ALT 21 Alkaline Phosphatase 150 H D Total Protein 8.2 Albumin 4.4 Globulin 3.9 Albumin/Globulin Ratio 1.1 Venous Blood Potassium 4.3 B-Hydroxybutyrate 3.30 H Assessment & Plan - Assessment and Plan (Free Text) Assessment: 52M with PMH DM presenting to the ED for redness and swelling of the L foot for 1 week, admitted for cellulitis. Plan: Cellulitis of L foot - pt febrile - leukocytosis - lactate 2.0 - f/u Xray L foot, r/o osteo - f/u BCx - f/u CXR - NS bolus x2 given in ED - NS @150cc/hr - Vanco 1g IV q12h - Zosyn 3.375g IV q6h DM - glucose 453 in ED - given insulin 5u IV in ED - f/u HbA1c - accuchecks ACHS - novolin 70/30 7u ACHS - high dose sliding scale - hypoglycemia protocol - NS bolus x2 given in ED - NS @150cc/hr - f/u rpt BMP - ASA 81mg PO daily - Crestor 5mg PO HS - lisinopril 5mg PO daily Tinea Pedis - lotrimin 1% topical BID PPX GI: pepcid DVT: lovenox DM diet Pt seen and case reviewed with Dr. Foster <Nicholas Foster - Last Filed: 03/25/18 14:39> Results - Vital Signs Recent Vital Signs: Last Vital Signs Temp 99 F 03/25/18 14:31 Pulse 85 03/25/18 14:31 Resp 18 03/25/18 14:31 BP 90/51 L 03/25/18 14:31 Pulse Ox 97 03/25/18 14:31 - Labs Result Diagrams: 03/25/18 12:05 03/25/18 12:05 Labs: Laboratory Results - last 24 hr 03/25/18 03/25/18 03/25/18 11:22 11:55 12:05 WBC 15.0 H D RBC 4.49 Hgb 13.5 Hct 39.6 MCV 88.3 MCH 30.2 MCHC 34.2 RDW 13.1 Plt Count 221 MPV 10.6 Neut % (Auto) 86.9 H Lymph % (Auto) 6.4 L [place] % (Auto) 6.2 Eos % (Auto) 0.2 Baso % (Auto) 0.3 Neut # (Auto) 13.0 H Lymph # (Auto) 1.0 [place] # (Auto) 0.9 H Eos # (Auto) 0.0 Baso # (Auto) 0.0 Neutrophils % (Manual) 86 H Lymphocytes % (Manual) 7 L Monocytes % (Manual) 7 Platelet Estimate Normal pO2 22 L VBG pH 7.30 L VBG pCO2 50 VBG HCO3 21.2 VBG Total CO2 26.1 VBG O2 Sat (Calc) 41.1 VBG Base Excess -2.4 L VBG Potassium 4.3 Sodium 137.0 Chloride 99.0 Glucose 426 H* Lactate 2.0 Crit Value Called To [facility] h Crit Value Called By Barbara peck Crit Value Read Back Y Blood Gas Notified Time 1206 Potassium Carbon Dioxide Anion Gap BUN Creatinine Est GFR ( Amer) Est GFR (Non-Af Amer) POC Glucose (mg/dL) 417 H* Random Glucose Calcium Total Bilirubin AST ALT Alkaline Phosphatase Total Protein Albumin Globulin Albumin/Globulin Ratio Venous Blood Potassium 4.3 B-Hydroxybutyrate 03/25/18 03/25/18 12:05 14:03 WBC RBC Hgb Hct MCV MCH MCHC RDW Plt Count MPV Neut % (Auto) Lymph % (Auto) [place] % (Auto) Eos % (Auto) Baso % (Auto) Neut # (Auto) Lymph # (Auto) [place] # (Auto) Eos # (Auto) Baso # (Auto) Neutrophils % (Manual) Lymphocytes % (Manual) Monocytes % (Manual) Platelet Estimate pO2 VBG pH VBG pCO2 VBG HCO3 VBG Total CO2 VBG O2 Sat (Calc) VBG Base Excess VBG Potassium Sodium 136 Chloride 95 L Glucose Lactate Crit Value Called To Crit Value Called By Crit Value Read Back Blood Gas Notified Time Potassium 4.2 Carbon Dioxide 25 Anion Gap 21 H BUN 22 H Creatinine 0.9 Est GFR ( Amer) > 60 Est GFR (Non-Af Amer) > 60 POC Glucose (mg/dL) 357 H Random Glucose 453 H* D Calcium 9.2 Total Bilirubin 1.0 AST 18 ALT 21 Alkaline Phosphatase 150 H D Total Protein 8.2 Albumin 4.4 Globulin 3.9 Albumin/Globulin Ratio 1.1 Venous Blood Potassium B-Hydroxybutyrate 3.30 H Attending/Attestation - Attestation I have personally seen and examined this patient.: Yes I have fully participated in the care of the patient.: Yes I have reviewed all pertinent clinical information: Yes Notes (Text): 03/25/18 14:38 Medical attending: Patient was seen and examined by me, agrees the above note by the emergency medicine medical director. The patient was seen in the emergency room with emergency medicine medical director. We went over the recent lab work showing that he has a very elevated glucose, his serum bicarbonate was 25 his VBG bicarbonate was 22. His VBG pH was 7.3. He does tell us that he feels thirsty, and that he was noticing that he's urinating quite a bit. He had not yet gotten any IV insulin so we gave him 5 units of IV, he's can have a sliding scale as well, he will also have insulin with meals 7 units for the time being and very likely he'll have to go up on this. The patient already had 1 L intravenous bolus, will give an additional liter as well as 150 mL hour. Recheck a BMP in a few hrs, follow accuchecks too The patient was here in May 2017 with DKA estimate didn't take his insulin after leaving the hospital and he could never give us a straight answer despite our long conversation with him we will check a hemoglobin A1c I suspect that it will be very elevated. With regards to left foot erythema, and swelling. On exam it appears that he does have may be an insect bite sanjeev or possible injection sanjeev area he does have a history of cocaine use in the past that was documented on a urine drug screen, were to recheck another urine drug screen he denies injecting needles into that area. It imaging to see if there could be any fragments of the needle. And also to assess if he may or may not have osteomyelitis. If the x-ray suspi cious for osteo-myelitis we may follow-up with MRI or bone scan. Review on IV vancomycin and Zosyn at this time thank you Nicholas Foster
[2018-03-25] MEDS ORDERED: (Novolin R) Insulin Human Regular 100 units/ml vial IVP ONE (13:30)
[2018-03-25] MEDS ORDERED: Glucagon Recombinant 1 mg Inj IM PRN (13:54)
[2018-03-25] MEDS ORDERED: Dextrose 50% SYRINGE Inj (50 ml) IV PRN (13:54)
[2018-03-25] MEDS: Sodium Chloride 0.9% 1,000 ML IV SCH ×2 (14:10→21:34)
--- NOTE | 2018-03-25 14:30 | RAD ---
Date of service: 03/25/2018 PROCEDURE: Left Foot Radiographs. HISTORY: L foot cellulitis COMPARISON: None. FINDINGS: BONES: Normal. No fracture. JOINTS: Normal. SOFT TISSUES: Normal. OTHER FINDINGS: None. IMPRESSION: Normal left foot radiographs.
--- NOTE | 2018-03-25 14:31 | RAD ---
Date of service: 03/25/2018 PROCEDURE: CHEST RADIOGRAPH, 1 VIEW HISTORY: fever COMPARISON: 06/23/2017 FINDINGS: LUNGS: Clear. PLEURA: No pneumothorax or pleural fluid seen. CARDIOVASCULAR: No aortic atherosclerotic calcification present. Normal. OSSEOUS STRUCTURES: No significant abnormalities. VISUALIZED UPPER ABDOMEN: Normal. OTHER FINDINGS: None. IMPRESSION: No active disease.
[2018-03-25 15:13] LABS: URINE BACTERIA RARE (<OCC); URINE BILIRUBIN NEGATIVE (NEGATIVE); URINE BLOOD NEGATIVE (NEGATIVE); URINE CLARITY Clear (Clear); URINE COLOR Yellow (YELLOW); URINE GLUCOSE (UA) 3+ mg/dL (Normal); URINE LEUKOCYTE ESTERASE NEG Leu/uL (Negative); URINE PROTEIN NEGATIVE (NEGATIVE); URINE UROBILINOGEN NORMAL mg/dL (0.2-1.0)
[2018-03-25] MEDS: Piperacillin/Tazobact 3.375 GM in Sodium Chloride 100 ML IVPB SCH ×2 (15:14→18:46)
[2018-03-25 15:45] LABS: VENOUS BLOOD GAS BASE EXCESS -1.4 mmol/L (0.0-2.0); VENOUS BLOOD GAS PCO2 49 mmHg (40-60); VENOUS BLOOD GAS PO2 27 mm/Hg (30-55); VENOUS BLOOD PH 7.32 (7.32-7.43)
[2018-03-25] MEDS ORDERED: (Novolin 70/30) NPH/Regular 70/30 Units/ml 10 ml vial SC SCH (16:30)
[2018-03-25 17:24] LABS: BLOOD UREA NITROGEN 19 mg/dL (9-20); GFR NON-AFRICAN AMERICAN > 60
[2018-03-25] MEDS ORDERED: Influenza Vaccine 60 MCG/0.5 ML SYR (3 yr & up) IM ONE (17:43)
[2018-03-25] MEDS: (Novolin R) Insulin Human Regular 100 units/ml vial SC SCH ×2 (17:57→21:33)
[2018-03-25] MEDS: Clotrimazole 1% Cream 15 GM TUBE TOP SCH (18:03)
[2018-03-26] MEDS: Piperacillin/Tazobact 3.375 GM in Sodium Chloride 100 ML IVPB SCH ×4 (01:22→19:15)
[2018-03-26] MEDS: Vancomycin 1 gm/NS 200 ml 1 GM/200 ML BAG IVPB SCH (01:58)
[2018-03-26] MEDS: Sodium Chloride 0.9% 1,000 ML IV SCH ×4 (02:45→22:21)
[2018-03-26] MEDS ORDERED: (Novolin 70/30) NPH/Regular 70/30 Units/ml 10 ml vial SC SCH (07:30)
[2018-03-26 07:40] LABS: BASO # 0.1 K/uL (0.0-0.2); BASO % 0.5 % (0.0-2.0); EOS # 0.1 K/uL (0.0-0.7); EOS % 0.9 % (0.0-4.0); LYMPH # 1.7 K/uL (1.0-4.3); LYMPH % 15.3 % (20.0-40.0); MEAN CELL VOLUME 88.9 fL (80.0-94.0); MEAN CORPUSCULAR HGB CONC 33.8 g/dL (33.0-37.0); MEAN PLATELET VOLUME 10.5 fL (7.2-11.7); MONO # 1.1 K/uL (0.0-0.8); MONO % 10.1 % (0.0-10.0); NEUT # 8.3 K/uL (1.8-7.0); NEUT % 73.2 % (50.0-75.0); RBC 3.33 Mil/uL (4.40-5.90); RED CELL DISTRIBUTION WIDTH 13.1 % (11.5-14.5); WHITE BLOOD COUNT 11.4 K/uL (4.8-10.8)
--- NOTE | 2018-03-26 07:55 | CP.PCM.PN ---
<Andre Hill - Last Filed: 03/26/18 11:11> Subjective - Date & Time of Evaluation Date of Evaluation: 03/26/18 Time of Evaluation: 07:54 - Subjective Subjective: Andre Hill PGY1 Progress Note for Dr. Foster Pt was examined at bedside this morning. He reports improvement in the redness and swelling of his L foot. Pt denies pain in the foot. He claims he is able to ambulate on foot without difficulty. He denies fever, chills, shortness of breath, chest pain, abdominal pain, nausea, vomiting, diarrhea, dysuria. Objective - Vital Signs/Intake and Output Vital Signs (last 24 hours): Temp Pulse Resp BP Pulse Ox 100.1 F H 85 20 112/65 98 03/25/18 23:25 03/25/18 23:25 03/25/18 23:25 03/25/18 23:25 03/25/18 23:25 Intake and Output: 03/26/18 03/26/18 06:59 18:59 Intake Total 2400 Output Total 800 Balance 1600 - Medications Medications: Current Medications Acetaminophen (Tylenol 325mg Tab) 650 mg PO Q6 PRN PRN Reason: Fever >100.4 F Aspirin (Aspirin Chewable) 81 mg PO DAILY [facility] Clotrimazole (Lotrimin 1%) 0 gm TOP BID [facility] Last Admin: 03/25/18 18:03 Dose: 1 applic Dextrose (Dextrose 50% Inj) 0 ml IV STAT PRN; Protocol PRN Reason: Hypoglycemia Protocol Dextrose (Glutose 15) 0 gm PO ONCE PRN; Protocol PRN Reason: Hypoglycemia Protocol Enoxaparin Sodium (Lovenox) 40 mg SC DAILY [facility] Famotidine (Pepcid) 20 mg PO BID [facility] Last Admin: 03/25/18 17:57 Dose: 20 mg Glucagon (Glucagen Diagnostic Kit) 0 mg IM STAT PRN; Protocol PRN Reason: Hypoglycemia Protocol Sodium Chloride (Sodium Chloride 0.9%) 1,000 mls @ 150 mls/hr IV .Q6H40M [facility] Last Admin: 03/26/18 02:45 Dose: 150 mls/hr Piperacillin Sod/Tazobactam (Sod 3.375 gm/ Sodium Chloride) 100 mls @ 200 mls/hr IVPB Q6H [facility]; Protocol Last Admin: 03/26/18 01:22 Dose: 200 mls/hr Vancomycin/Sodium Chloride (Vancomycin 1 Gm/Ns 200 Ml) 1 gm in 200 mls @ 133 mls/hr IVPB Q12H [facility]; Protocol Stop: 03/30/18 14:01 Last Admin: 03/26/18 01:58 Dose: 133 mls/hr Dextrose (Dextrose 5% In Water 1000 Ml) 1,000 mls @ 0 mls/hr IV .Q0M PRN; Protocol PRN Reason: Hypoglycemia Protocol Influenza Virus Vaccine (Fluzone Quad [id number]) 60 mcg IM .ONCE ONE Stop: 03/27/18 10:01 Insulin Human Isoph/Insulin Regular (Novolin 70/30 (70/30 Units/Ml) 10 Ml) 7 units SC AC [facility] Insulin Human Regular (Novolin R) 0 unit SC ACHS [facility]; Protocol Last Admin: 03/25/18 21:33 Dose: 3 units Lisinopril (Zestril) 5 mg PO DAILY [facility] Last Admin: 03/25/18 14:54 Dose: Not Given Rosuvastatin Calcium (Crestor) 5 mg PO HS [facility] Last Admin: 03/25/18 21:33 Dose: 5 mg - Labs Labs: 03/26/18 07:25 03/25/18 17:06 - Additional Findings Additional findings: - Constitutional Appears: Well, No Acute Distress - Head Exam Head Exam: ATRAUMATIC, NORMOCEPHALIC - Eye Exam Eye Exam: EOMI, PERRL Pupil Exam: NORMAL ACCOMODATION - ENT Exam ENT Exam: Mucous Membranes Moist - Neck Exam Neck exam: Positive for: Full Rom - Respiratory Exam Respiratory Exam: Clear to Auscultation Bilateral, NORMAL BREATHING PATTERN. absent: Rales, Rhonchi, Wheezes - Cardiovascular Exam Cardiovascular Exam: REGULAR RHYTHM, +S1, +S2. absent: Gallop, Rubs, Systolic Murmur - GI/Abdominal Exam GI & Abdominal Exam: Normal Bowel Sounds, Soft. absent: Distended, Firm, Tenderness - Extremities Exam Additional comments: LLE: erythema and edema of L foot markedly decreased, with bruising on anterior mid foot. no drainage noted. dyskeratotic and yellowing nail changes with scale of toes on b/l feet - Neurological Exam Neurological exam: Alert, CN II-XII Intact, Oriented x3, Reflexes Normal - Psychiatric Exam Psychiatric exam: Normal Affect, Normal Mood Assessment and Plan - Assessment and Plan (Free Text) Assessment: 52M with PMH DM presenting to the ED for redness and swelling of the L foot for 1 week, admitted for cellulitis. Plan: Cellulitis of L foot - pt afebrile - leukocytosis improving - rpt lactate 0.9 - Xray L foot: normal - CXR: no active disease - UCx neg final - f/u BCx - NS @150cc/hr - Vanco 1g IV q12h - Zosyn 3.375g IV q6h DM - f/u HbA1c - accuchecks ACHS - novolin 70/30 12u AC - high dose sliding scale - hypoglycemia protocol - NS @150cc/hr - ASA 81mg PO daily - Crestor 5mg PO HS - lisinopril 5mg PO daily Tinea Pedis - lotrimin 1% topical BID PPX GI: pepcid DVT: lovenox DM diet Pt seen and case reviewed with Dr. Foster <Nicholas Foster - Last Filed: 03/26/18 18:45> Objective - Vital Signs/Intake and Output Vital Signs (last 24 hours): Temp Pulse Resp BP Pulse Ox 99.1 F 76 20 97/58 L 97 03/26/18 15:42 03/26/18 15:42 03/26/18 15:42 03/26/18 15:42 03/26/18 15:42 Intake and Output: 03/26/18 03/26/18 06:59 18:59 Intake Total 2400 900 Output Total 800 1000 Balance 1600 -100 - Medications Medications: Current Medications Acetaminophen (Tylenol 325mg Tab) 650 mg PO Q6 PRN PRN Reason: Fever >100.4 F Aspirin (Aspirin Chewable) 81 mg PO DAILY [facility] Last Admin: 03/26/18 09:26 Dose: 81 mg Clotrimazole (Lotrimin 1%) 0 gm TOP BID [facility] Last Admin: 03/26/18 09:30 Dose: 1 applic Dextrose (Dextrose 50% Inj) 0 ml IV STAT PRN; Protocol PRN Reason: Hypoglycemia Protocol Dextrose (Glutose 15) 0 gm PO ONCE PRN; Protocol PRN Reason: Hypoglycemia Protocol Enoxaparin Sodium (Lovenox) 40 mg SC DAILY [facility] Last Admin: 03/26/18 09:27 Dose: 40 mg Famotidine (Pepcid) 20 mg PO BID [facility] Last Admin: 03/26/18 09:26 Dose: 20 mg Glucagon (Glucagen Diagnostic Kit) 0 mg IM STAT PRN; Protocol PRN Reason: Hypoglycemia Protocol Sodium Chloride (Sodium Chloride 0.9%) 1,000 mls @ 150 mls/hr IV .Q6H40M [facility] Last Admin: 03/26/18 08:28 Dose: Not Given Piperacillin Sod/Tazobactam (Sod 3.375 gm/ Sodium Chloride) 100 mls @ 200 mls/hr IVPB Q6H [facility]; Protocol Last Admin: 03/26/18 12:35 Dose: 200 mls/hr Vancomycin/Sodium Chloride (Vancomycin 1 Gm/Ns 200 Ml) 1 gm in 200 mls @ 133 mls/hr IVPB Q12H [facility]; Protocol Stop: 03/30/18 14:01 Last Admin: 03/26/18 01:58 Dose: 133 mls/hr Dextrose (Dextrose 5% In Water 1000 Ml) 1,000 mls @ 0 mls/hr IV .Q0M PRN; Protocol PRN Reason: Hypoglycemia Protocol Influenza Virus Vaccine (Fluzone Quad [id number]) 60 mcg IM .ONCE ONE Stop: 03/27/18 10:01 Insulin Human Isoph/Insulin Regular (Novolin 70/30 (70/30 Units/Ml) 10 Ml) 12 units SC AC [facility] Last Admin: 03/26/18 16:48 Dose: 12 units Insulin Human Regular (Novolin R) 0 unit SC ACHS [facility]; Protocol Last Admin: 03/26/18 16:37 Dose: 2 units Lisinopril (Zestril) 5 mg PO DAILY [facility] Last Admin: 03/26/18 09:27 Dose: 5 mg Rosuvastatin Calcium (Crestor) 5 mg PO HS [facility] Last Admin: 03/25/18 21:33 Dose: 5 mg - Labs Labs: 03/26/18 07:25 03/26/18 07:25 Attending/Attestation - Attestation I have personally seen and examined this patient.: Yes I have fully participated in the care of the patient.: Yes I have reviewed all pertinent clinical information, including history, physical exam and plan: Yes Notes (Text): 03/26/18 18:44 Medical attending: Patient was seen and examined by me as well with the medical residents. The area of erethema on the dorsum of the foot looks much smaller, it is non tender, no bleeding. We will continue with the IV abx, the XRAYs were negative Also the blood sugars are better however we will increase the 70/30 danish Foster
[2018-03-26 07:56] LABS: ALBUMIN 3.1 g/dL (3.5-5.0); ALT/SGPT 22 U/L (21-72); AST/SGOT 20 U/L (17-59); BLOOD UREA NITROGEN 13 mg/dL (9-20); CALCIUM 7.9 mg/dl (8.6-10.4); GFR NON-AFRICAN AMERICAN > 60
[2018-03-26] MEDS: (Novolin R) Insulin Human Regular 100 units/ml vial SC SCH ×4 (08:13→22:13)
[2018-03-26] MEDS: Enoxaparin 40 mg Syringe SC SCH (09:27)
[2018-03-26] MEDS: Clotrimazole 1% Cream 15 GM TUBE TOP SCH ×2 (09:30→18:00)
[2018-03-26] MEDS: (Novolin 70/30) NPH/Regular 70/30 Units/ml 10 ml vial SC SCH ×2 (11:41→16:48)
--- NOTE | 2018-03-26 22:33 | CARD ---
APPROVED REPORT Date of service: 03/25/2018 EKG Measurement Heart [id number] <Conclusion> Normal sinus rhythm Normal ECG
[2018-03-27] MEDS: Piperacillin/Tazobact 3.375 GM in Sodium Chloride 100 ML IVPB SCH ×4 (00:55→18:51)
[2018-03-27] MEDS: Vancomycin 1 gm/NS 200 ml 1 GM/200 ML BAG IVPB SCH ×2 (01:33→13:56)
[2018-03-27] MEDS: Sodium Chloride 0.9% 1,000 ML IV SCH ×3 (05:12→21:10)
[2018-03-27 07:19] LABS: BASO % 0.3 % (0.0-2.0); EOS # 0.2 K/uL (0.0-0.7); EOS % 2.2 % (0.0-4.0); HEMOGLOBIN 9.6 g/dL (12.0-18.0); LYMPH # 1.9 K/uL (1.0-4.3); LYMPH % 19.4 % (20.0-40.0); MEAN CELL VOLUME 87.7 fL (80.0-94.0); MEAN CORPUSCULAR HEMOGLOBIN 30.1 pg (27.0-31.0); MEAN CORPUSCULAR HGB CONC 34.3 g/dL (33.0-37.0); MEAN PLATELET VOLUME 9.8 fL (7.2-11.7); MONO % 10.5 % (0.0-10.0); NEUT # 6.5 K/uL (1.8-7.0); NEUT % 67.6 % (50.0-75.0); RBC 3.19 Mil/uL (4.40-5.90); RED CELL DISTRIBUTION WIDTH 12.9 % (11.5-14.5); WHITE BLOOD COUNT 9.5 K/uL (4.8-10.8)
[2018-03-27 07:37] LABS: ALB/GLOB RATIO 0.9 (1.0-2.1); ALBUMIN 2.7 g/dL (3.5-5.0); ALT/SGPT 49 U/L (21-72); AST/SGOT 74 U/L (17-59); BLOOD UREA NITROGEN 11 mg/dL (9-20); CALCIUM 7.4 mg/dl (8.6-10.4); GFR NON-AFRICAN AMERICAN > 60
[2018-03-27] MEDS: (Novolin R) Insulin Human Regular 100 units/ml vial SC SCH ×4 (08:02→21:50)
[2018-03-27] MEDS: (Novolin 70/30) NPH/Regular 70/30 Units/ml 10 ml vial SC SCH ×3 (08:03→17:24)
--- NOTE | 2018-03-27 08:46 | CP.PCM.PN ---
Subjective - Date & Time of Evaluation Date of Evaluation: 03/27/18 Time of Evaluation: 08:40 - Subjective Subjective: PGY-[address] Foster Patient seen and examined at bedside. No acute events overnight. Patient denies chest pain, nausea, vomiting, fevers, fatigue. Patient c/o headache and right hand swelling this morning. R hand is swollen, but not painful. Suspecting infiltrated IV, I have asked the nurse to apply warm compresses and keep the extremity elevated. IV switched to L arm and fluids decreased to 100cc/hr for now - we will continue to titrate fluids. Hand swelling improved in the afternoon. Patient was also complaining of headache this morning, but note that he states he has had slight headaches every morning and that they are in a band-like distribution across his forehead. Objective - Vital Signs/Intake and Output Vital Signs (last 24 hours): Temp Pulse Resp BP Pulse Ox 98.1 F 82 20 120/72 98 03/27/18 07:39 03/27/18 07:39 03/27/18 07:39 03/27/18 07:39 03/27/18 07:39 Intake and Output: 03/27/18 03/27/18 06:59 18:59 Intake Total 2990 Output Total 2000 Balance 990 - Medications Medications: Current Medications Acetaminophen (Tylenol 325mg Tab) 650 mg PO Q6 PRN PRN Reason: Fever >100.4 F Aspirin (Aspirin Chewable) 81 mg PO DAILY [facility] Last Admin: 03/26/18 09:26 Dose: 81 mg Clotrimazole (Lotrimin 1%) 0 gm TOP BID [facility] Last Admin: 03/26/18 18:00 Dose: 1 applic Dextrose (Dextrose 50% Inj) 0 ml IV STAT PRN; Protocol PRN Reason: Hypoglycemia Protocol Dextrose (Glutose 15) 0 gm PO ONCE PRN; Protocol PRN Reason: Hypoglycemia Protocol Enoxaparin Sodium (Lovenox) 40 mg SC DAILY [facility] Last Admin: 03/26/18 09:27 Dose: 40 mg Famotidine (Pepcid) 20 mg PO BID [facility] Last Admin: 03/26/18 19:16 Dose: 20 mg Glucagon (Glucagen Diagnostic Kit) 0 mg IM STAT PRN; Protocol PRN Reason: Hypoglycemia Protocol Sodium Chloride (Sodium Chloride 0.9%) 1,000 mls @ 150 mls/hr IV .Q6H40M [facility] Last Admin: 03/27/18 05:12 Dose: Not Given Piperacillin Sod/Tazobactam (Sod 3.375 gm/ Sodium Chloride) 100 mls @ 200 mls/hr IVPB Q6H [facility]; Protocol Last Admin: 03/27/18 08:03 Dose: 200 mls/hr Vancomycin/Sodium Chloride (Vancomycin 1 Gm/Ns 200 Ml) 1 gm in 200 mls @ 133 mls/hr IVPB Q12H [facility]; Protocol Stop: 03/30/18 14:01 Last Admin: 03/27/18 01:33 Dose: 133 mls/hr Dextrose (Dextrose 5% In Water 1000 Ml) 1,000 mls @ 0 mls/hr IV .Q0M PRN; Protocol PRN Reason: Hypoglycemia Protocol Influenza Virus Vaccine (Fluzone Quad 0590-4775) 60 mcg IM .ONCE ONE Stop: 03/27/18 10:01 Insulin Human Isoph/Insulin Regular (Novolin 70/30 (70/30 Units/Ml) 10 Ml) 12 units SC AC [facility] Last Admin: 03/27/18 08:03 Dose: 12 units Insulin Human Regular (Novolin R) 0 unit SC ACHS [facility]; Protocol Last Admin: 03/27/18 08:02 Dose: 2 units Lisinopril (Zestril) 5 mg PO DAILY [facility] Last Admin: 03/26/18 09:27 Dose: 5 mg Rosuvastatin Calcium (Crestor) 5 mg PO HS [facility] Last Admin: 03/26/18 21:29 Dose: 5 mg - Labs Labs: 03/27/18 07:10 03/27/18 07:10 - Constitutional Appears: No Acute Distress - Head Exam Head Exam: ATRAUMATIC, NORMAL INSPECTION - Eye Exam Eye Exam: EOMI, Normal appearance - ENT Exam ENT Exam: Mucous Membranes Moist - Respiratory Exam Respiratory Exam: Clear to Ausculation Bilateral, NORMAL BREATHING PATTERN. absent: Rales, Rhonchi, Wheezes - Cardiovascular Exam Cardiovascular Exam: REGULAR RHYTHM, +S1, +S2 - GI/Abdominal Exam GI & Abdominal Exam: Soft, Normal Bowel Sounds. absent: Tenderness - Extremities Exam Extremities Exam: Tenderness Additional comments: Left foot is swollen and erythematous with a bullous collection of fluid on the dorsal aspect. Plantar foot is mostly normal appearing. Pulses intact. Mildly tender to palpation. Right upper extremity slightly edematous without tenderness. - Neurological Exam Neurological Exam: Alert, Awake, Oriented x3 - Psychiatric Exam Psychiatric exam: Normal Affect, Normal Mood - Skin Skin Exam: Erythema (L foot), Intact Assessment and Plan - Assessment and Plan (Free Text) Assessment: Cellulitis of L foot - pt afebrile - leukocytosis improving - rpt lactate 0.9 - Xray L foot: normal - CXR: no active disease - UCx neg final - f/u BCx - NS @100cc/hr - Vanco 1g IV q12h - Zosyn 3.375g IV q6h DM - f/u HbA1c - accuchecks ACHS - novolin 70/30 12u AC - high dose sliding scale - hypoglycemia protocol - NS @100cc/hr - ASA 81mg PO daily - Crestor 5mg PO HS - lisinopril 5mg PO daily Tinea Pedis - lotrimin 1% topical BID PPX GI: pepcid DVT: lovenox DM diet
[2018-03-27] MEDS: Enoxaparin 40 mg Syringe SC SCH (09:50)
[2018-03-27] MEDS ORDERED: Influenza Vaccine 60 MCG/0.5 ML SYR (3 yr & up) IM ONE (10:00)
[2018-03-27 11:05] LABS: BARBITURATES, UR NEGATIVE (NEGATIVE); BENZODIAZEPINES, UR NEGATIVE (NEGATIVE); OPIATES, UR NEGATIVE (NEGATIVE); PHENCYCLIDINE, UR NEGATIVE (NEGATIVE)
[2018-03-27] MEDS: Clotrimazole 1% Cream 15 GM TUBE TOP SCH (17:25)
[2018-03-28] MEDS: Piperacillin/Tazobact 3.375 GM in Sodium Chloride 100 ML IVPB SCH ×4 (00:35→20:00)
[2018-03-28] MEDS: Vancomycin 1 gm/NS 200 ml 1 GM/200 ML BAG IVPB SCH ×2 (01:10→14:07)
[2018-03-28] MEDS: Sodium Chloride 0.9% 1,000 ML IV SCH ×4 (01:15→20:01)
[2018-03-28 08:01] LABS: BASO % 0.5 % (0.0-2.0); EOS # 0.2 K/uL (0.0-0.7); EOS % 2.1 % (0.0-4.0); HEMOGLOBIN 9.6 g/dL (12.0-18.0); LYMPH # 1.3 K/uL (1.0-4.3); LYMPH % 14.8 % (20.0-40.0); MEAN CELL VOLUME 87.5 fL (80.0-94.0); MEAN CORPUSCULAR HEMOGLOBIN 30.1 pg (27.0-31.0); MEAN CORPUSCULAR HGB CONC 34.4 g/dL (33.0-37.0); MEAN PLATELET VOLUME 9.9 fL (7.2-11.7); MONO # 0.9 K/uL (0.0-0.8); NEUT # 6.4 K/uL (1.8-7.0); NEUT % 72.6 % (50.0-75.0); RBC 3.18 Mil/uL (4.40-5.90); RED CELL DISTRIBUTION WIDTH 12.9 % (11.5-14.5); WHITE BLOOD COUNT 8.7 K/uL (4.8-10.8)
--- NOTE | 2018-03-28 08:02 | CP.PCM.PN ---
Subjective - Date & Time of Evaluation Date of Evaluation: 03/28/18 Time of Evaluation: 07:40 - Subjective Subjective: PGY-[address] Foster service Patient is seen and examined at bedside. Patient states he is doing well. Patient is worried about his left foot but admits that swelling and redness has improved, however, he points at the dorsal aspect of foot which is still red. Patient says it has not drained anymore, and has not put a bandage this morning. Patient states he is bloated and that he is not eating as much. Patient has not been able to walk due to left foot pain and swelling since he was admitted. Patient denies any fever, chills, chest pain, shortness of breath, dizziness, weakness, abdominal pain, n/v/d/c or urinary complains Objective - Vital Signs/Intake and Output Vital Signs (last 24 hours): Temp Pulse Resp BP Pulse Ox 97.8 F 78 20 109/69 97 03/28/18 00:00 03/28/18 00:00 03/28/18 00:00 03/28/18 00:00 03/28/18 00:00 Intake and Output: 03/28/18 03/28/18 06:59 18:59 Intake Total 350 1380 Output Total 800 Balance -450 1380 - Medications Medications: Current Medications Acetaminophen (Tylenol 325mg Tab) 650 mg PO Q6 PRN PRN Reason: Fever >100.4 F Last Admin: 03/27/18 21:10 Dose: 650 mg Acetaminophen (Tylenol 325mg Tab) 650 mg PO Q6 PRN PRN Reason: Pain, Mild (1-3) Last Admin: 03/28/18 05:59 Dose: 650 mg Aspirin (Aspirin Chewable) 81 mg PO DAILY [facility] Last Admin: 03/27/18 09:50 Dose: 81 mg Clotrimazole (Lotrimin 1%) 0 gm TOP BID [facility] Last Admin: 03/27/18 17:25 Dose: Not Given Dextrose (Dextrose 50% Inj) 0 ml IV STAT PRN; Protocol PRN Reason: Hypoglycemia Protocol Dextrose (Glutose 15) 0 gm PO ONCE PRN; Protocol PRN Reason: Hypoglycemia Protocol Enoxaparin Sodium (Lovenox) 40 mg SC DAILY [facility] Last Admin: 03/27/18 09:50 Dose: 40 mg Famotidine (Pepcid) 20 mg PO BID [facility] Last Admin: 03/27/18 17:24 Dose: 20 mg Glucagon (Glucagen Diagnostic Kit) 0 mg IM STAT PRN; Protocol PRN Reason: Hypoglycemia Protocol Sodium Chloride (Sodium Chloride 0.9%) 1,000 mls @ 150 mls/hr IV .Q6H40M [facility] Last Admin: 03/28/18 06:57 Dose: 150 mls/hr Piperacillin Sod/Tazobactam (Sod 3.375 gm/ Sodium Chloride) 100 mls @ 200 mls/hr IVPB Q6H [facility]; Protocol Last Admin: 03/28/18 06:58 Dose: 200 mls/hr Vancomycin/Sodium Chloride (Vancomycin 1 Gm/Ns 200 Ml) 1 gm in 200 mls @ 133 mls/hr IVPB Q12H [facility]; Protocol Stop: 03/30/18 14:01 Last Admin: 03/28/18 01:10 Dose: 133 mls/hr Dextrose (Dextrose 5% In Water 1000 Ml) 1,000 mls @ 0 mls/hr IV .Q0M PRN; Protocol PRN Reason: Hypoglycemia Protocol Insulin Human Isoph/Insulin Regular (Novolin 70/30 (70/30 Units/Ml) 10 Ml) 12 units SC AC [facility] Last Admin: 03/27/18 17:24 Dose: 12 units Insulin Human Regular (Novolin R) 0 unit SC ACHS [facility]; Protocol Last Admin: 03/27/18 21:50 Dose: Not Given Lisinopril (Zestril) 5 mg PO DAILY [facility] Last Admin: 03/27/18 09:50 Dose: 5 mg Rosuvastatin Calcium (Crestor) 5 mg PO HS [facility] Last Admin: 03/27/18 21:10 Dose: 5 mg - Labs Labs: 03/27/18 07:10 03/27/18 07:10 - Constitutional Appears: Well, Non-toxic, No Acute Distress - Head Exam Head Exam: ATRAUMATIC, NORMAL INSPECTION, NORMOCEPHALIC - Eye Exam Eye Exam: EOMI, Normal appearance - ENT Exam ENT Exam: Mucous Membranes Moist, Normal Exam - Neck Exam Neck Exam: Full ROM, Normal Inspection - Respiratory Exam Respiratory Exam: Clear to Ausculation Bilateral, NORMAL BREATHING PATTERN. absent: Rales, Rhonchi, Wheezes - Cardiovascular Exam Cardiovascular Exam: REGULAR RHYTHM, +S1, +S2 - GI/Abdominal Exam GI & Abdominal Exam: Soft, Normal Bowel Sounds - Extremities Exam Extremities Exam: Full ROM Additional comments: Left foot nonpitting edema, erythematous with a bullous collection of fluid on the dorsal aspect. small puncture open wound with dry blood, nonpurulent, non malodorous, Pulses intact. No tenderness to palpation. No erythema on distal lower extremity, no edema - Back Exam Back Exam: NORMAL INSPECTION - Neurological Exam Neurological Exam: Alert, Awake, Oriented x3 - Psychiatric Exam Psychiatric exam: Normal Affect, Normal Mood - Skin Skin Exam: Dry, Warm Assessment and Plan - Assessment and Plan (Free Text) Assessment: 52 year old male Pmhx DMII, admitted for Left foot cellulitis Plan: Cellulitis of L foot - pt continues to be afebrile - leukocytosis improving, now at 8.7 - rpt lactate 0.9 - Xray L foot: normal - CXR: no active disease - UCx neg final - f/u BCx - negative growth for 48 hours - continue Vanco 1g IV q12h - continue Zosyn 3.375g IV q6h - Dr Daniels - ID consult - f/u recs - Dr Phan - Podiatry - f/u recs - NS @100 cc/hr DM - f/u HbA1c - accuchecks ACHS - novolin 70/30 12u AC - high dose sliding scale - hypoglycemia protocol - ASA 81mg PO daily - Crestor 5mg PO HS - lisinopril 5mg PO daily - NS @ 100 cc/hr Mild hypokalemia - Potassium 3.5 from 3.6 - K-dur 20meq PO x 1 dose - follow up am labs Bloating - Simethicone 80mg PO x1 dose Tinea Pedis - lotrimin 1% topical BID PPX GI: pepcid DVT: lovenox DM diet Plan discussed with Dr Kristin Johnson, PGY-1
[2018-03-28] MEDS: (Novolin R) Insulin Human Regular 100 units/ml vial SC SCH ×4 (08:05→21:09)
[2018-03-28 08:23] LABS: ALB/GLOB RATIO 0.9 (1.0-2.1); ALBUMIN 2.6 g/dL (3.5-5.0); ALT/SGPT 57 U/L (21-72); AST/SGOT 51 U/L (17-59); BLOOD UREA NITROGEN 7 mg/dL (9-20); CALCIUM 7.5 mg/dl (8.6-10.4); GFR NON-AFRICAN AMERICAN > 60
[2018-03-28] MEDS: (Novolin 70/30) NPH/Regular 70/30 Units/ml 10 ml vial SC SCH ×3 (08:30→16:16)
[2018-03-28] MEDS: Enoxaparin 40 mg Syringe SC SCH (10:07)
[2018-03-28] MEDS: Clotrimazole 1% Cream 15 GM TUBE TOP SCH ×2 (10:13→17:59)
[2018-03-28] MEDS ORDERED: Potassium Chloride 20 mEq ER Tab PO ONE (11:00)
[2018-03-28] MEDS ORDERED: Simethicone 80 mg Chewtab PO ONE (11:15)
--- NOTE | 2018-03-28 18:43 | CP.PCM.CON ---
History of Present Illness - History of Present Illness History of Present Illness: Podiatry consult note for Dr. Phan 52 y/o male with PMHx of Diabetes seen and evaluated at bedside for left foot cellulitis and wound. Patient states about 8 days ago, he noted redness to his foot with pain and swelling. Patient states he works at a [employer], and thinks it was due to the socks and shoe-gear. Patient states his diabetes is uncontrolled and he does not have a primary care doctor. Patient states upon arrival to ED he complained of subjective fever and chills. He denies any trauma, falls, injection into site, bug bites, or drainage from foot. He denies taking anything to help the swelling. He reports the swelling has now improved slightly, however the redness has developed into a blister. He denies numbness/t ingling to the area. Pt denies nausea, vomiting, diarrhea, dysuria, increased urinary frequency, or chest pain. SxH: R retina 2010 Allergies: NKDA Meds: short acting insulin 15-20u daily with breakfast PMD: none Review of Systems - Review of Systems All systems: reviewed and no additional remarkable complaints except Review of Systems: As per HPI Past Patient History - Past Medical History & Family History Past Medical History?: Yes - Past Social History Smoking Status: Never Smoked - CARDIAC Hx Cardiac Disorders: No - PULMONARY Hx Respiratory Disorders: No - NEUROLOGICAL Hx Neurological Disorder: No - HEENT Hx HEENT Problems: No - RENAL Hx Chronic Kidney Disease: No - ENDOCRINE/METABOLIC Hx Diabetes Mellitus Type 2: Yes - HEMATOLOGICAL/ONCOLOGICAL Hx Blood Disorders: No - INTEGUMENTARY Hx Dermatological Problems: No - MUSCULOSKELETAL/RHEUMATOLOGICAL Hx Musculoskeletal Disorders: No Hx Falls: No - GASTROINTESTINAL Hx Gastrointestinal Disorders: No - PSYCHIATRIC Hx Substance Use: No - SURGICAL HISTORY Hx Surgeries: Yes Other/Comment: Rt. eye surgery 8 years ago - ANESTHESIA Hx Anesthesia: Yes Hx Anesthesia Reactions: No Meds Allergies/Adverse Reactions: Allergies Allergy/AdvReac Type Severity Reaction Status Date / Time No Known Allergies Allergy Unverified 04/22/17 18:41 - Medications Medications: Current Medications Acetaminophen (Tylenol 325mg Tab) 650 mg PO Q6 PRN PRN Reason: Fever >100.4 F Last Admin: 03/27/18 21:10 Dose: 650 mg Acetaminophen (Tylenol 325mg Tab) 650 mg PO Q6 PRN PRN Reason: Pain, Mild (1-3) Last Admin: 03/28/18 05:59 Dose: 650 mg Aspirin (Aspirin Chewable) 81 mg PO DAILY [facility] Last Admin: 03/28/18 10:07 Dose: 81 mg Clotrimazole (Lotrimin 1%) 0 gm TOP BID [facility] Last Admin: 03/28/18 17:59 Dose: Not Given Dextrose (Dextrose 50% Inj) 0 ml IV STAT PRN; Protocol PRN Reason: Hypoglycemia Protocol Dextrose (Glutose 15) 0 gm PO ONCE PRN; Protocol PRN Reason: Hypoglycemia Protocol Enoxaparin Sodium (Lovenox) 40 mg SC DAILY [facility] Last Admin: 03/28/18 10:07 Dose: 40 mg Famotidine (Pepcid) 20 mg PO BID [facility] Last Admin: 03/28/18 17:58 Dose: 20 mg Glucagon (Glucagen Diagnostic Kit) 0 mg IM STAT PRN; Protocol PRN Reason: Hypoglycemia Protocol Piperacillin Sod/Tazobactam (Sod 3.375 gm/ Sodium Chloride) 100 mls @ 200 mls/hr IVPB Q6H [facility]; Protocol Last Admin: 03/28/18 13:34 Dose: 200 mls/hr Vancomycin/Sodium Chloride (Vancomycin 1 Gm/Ns 200 Ml) 1 gm in 200 mls @ 133 mls/hr IVPB Q12H [facility]; Protocol Stop: 03/30/18 14:01 Last Admin: 03/28/18 14:07 Dose: 133 mls/hr Dextrose (Dextrose 5% In Water 1000 Ml) 1,000 mls @ 0 mls/hr IV .Q0M PRN; Protocol PRN Reason: Hypoglycemia Protocol Insulin Human Isoph/Insulin Regular (Novolin 70/30 (70/30 Units/Ml) 10 Ml) 12 units SC AC [facility] Last Admin: 03/28/18 16:16 Dose: Not Given Insulin Human Regular (Novolin R) 0 unit SC ACHS [facility]; Protocol Last Admin: 03/28/18 16:15 Dose: Not Given Lisinopril (Zestril) 5 mg PO DAILY [facility] Last Admin: 03/28/18 10:07 Dose: 5 mg Rosuvastatin Calcium (Crestor) 5 mg PO HS [facility] Last Admin: 03/27/18 21:10 Dose: 5 mg Physical Exam - Constitutional Appears: Well, Non-toxic, No Acute Distress - Head Exam Head Exam: ATRAUMATIC, NORMOCEPHALIC - Extremities Exam Additional comments: Left Lower Extremity Exam VASC: DP and PT 2/4 palpable, CFT less than 3 seconds X 10, Tg warm to warm, +2 pitting edema to the dorsum of the left foot NEURO: grossly intact DERM: approximately 3 cm x 3 cm bulla noted to the dorsum of the left foot, positive fluctuance noted, positive drainage noted, positive malodor, negative probe to bone, positive tunneling noted, wound measuring 0.3 cm X 0.4 cm noted the medial base of the third digit with positive purulent drainage, positive malodor, negative probe to bone, positive surrounding erythema and edema ORTHO: minimal tenderness to palpation, MSK 5/5 - Neurological Exam Neurological exam: Alert, Oriented x3 - Psychiatric Exam Psychiatric exam: Normal Affect, Normal Mood Results - Vital Signs Recent Vital Signs: Last Vital Signs Temp 97.7 F 03/28/18 15:00 Pulse 81 03/28/18 15:00 Resp 20 03/28/18 15:00 BP 95/85 L 03/28/18 15:00 Pulse Ox 95 03/28/18 15:00 - Labs Result Diagrams: 03/28/18 07:50 03/28/18 07:50 Labs: Laboratory Results - last 24 hr 03/27/18 03/28/18 03/28/18 21:21 07:32 07:50 WBC 8.7 RBC 3.18 L Hgb 9.6 L Hct 27.8 L MCV 87.5 MCH 30.1 MCHC 34.4 RDW 12.9 Plt Count 214 MPV 9.9 Neut % (Auto) 72.6 Lymph % (Auto) 14.8 L [place] % (Auto) 10.0 Eos % (Auto) 2.1 Baso % (Auto) 0.5 Neut # (Auto) 6.4 Lymph # (Auto) 1.3 [place] # (Auto) 0.9 H Eos # (Auto) 0.2 Baso # (Auto) 0.0 Sodium Potassium Chloride Carbon Dioxide Anion Gap BUN Creatinine Est GFR ( Amer) Est GFR (Non-Af Amer) POC Glucose (mg/dL) 123 H 120 H Random Glucose Calcium Total Bilirubin AST ALT Alkaline Phosphatase Total Protein Albumin Globulin Albumin/Globulin Ratio 03/28/18 03/28/18 03/28/18 07:50 11:35 15:59 WBC RBC Hgb Hct MCV MCH MCHC RDW Plt Count MPV Neut % (Auto) Lymph % (Auto) [place] % (Auto) Eos % (Auto) Baso % (Auto) Neut # (Auto) Lymph # (Auto) [place] # (Auto) Eos # (Auto) Baso # (Auto) Sodium 137 Potassium 3.5 L Chloride 105 Carbon Dioxide 24 Anion Gap 12 BUN 7 L Creatinine 0.8 Est GFR ( Amer) > 60 Est GFR (Non-Af Amer) > 60 POC Glucose (mg/dL) 433 H* 97 Random Glucose 110 D Calcium 7.5 L Total Bilirubin 0.4 AST 51 ALT 57 Alkaline Phosphatase 144 H Total Protein 5.6 L Albumin 2.6 L Globulin 3.0 Albumin/Globulin Ratio 0.9 L Assessment & Plan - Assessment and Plan (Free Text) Assessment: 52 y/o male patient seen and evaluated at bedside for wound and cellulitis to the dorsum of the left foot Plan: Patient seen and evaluated Plan discussed with attending Dr. Phan Chart, labs and vitals were reviewed- WBC (15.0 on arrival) trended down to 8.7 today, afebrile at this time Left foot X-rays- normal left foot radiographs Ordered MRI of Left Foot- STAT Wound Cultures- Ordered Incision and drainage performed of the wound with sterile #15 blade and about 5 cc of serosanguinous drainage was obtained, wound was copiously flushed with saline, packed with 1/2 inch iodoform packing, and dressed with betadine soaked DSD Patient tolerated the procedure well without pain Ordered Surgical shoe for pain, patient to ambulate PWB to heel only Please contact Podiatry prior to MRI to change dressing Placed ID consult- recommendations appreciated Educated patient on likely etiology and possible OR incision and drainage if abscess noted on MRI Podiatry will continue to follow patient while in house
[2018-03-29] MEDS: Piperacillin/Tazobact 3.375 GM in Sodium Chloride 100 ML IVPB SCH ×4 (00:32→20:03)
[2018-03-29] MEDS: Vancomycin 1 gm/NS 200 ml 1 GM/200 ML BAG IVPB SCH ×2 (02:50→14:09)
[2018-03-29] MEDS: Sodium Chloride 0.9% 1,000 ML IV SCH ×2 (06:19→16:31)
[2018-03-29] MEDS: (Novolin 70/30) NPH/Regular 70/30 Units/ml 10 ml vial SC SCH ×3 (07:52→16:30)
[2018-03-29] MEDS: (Novolin R) Insulin Human Regular 100 units/ml vial SC SCH ×4 (07:52→21:27)
[2018-03-29 07:59] LABS: RBC 3.33 Mil/uL (4.40-5.90); WHITE BLOOD COUNT 9.1 K/uL (4.8-10.8)
[2018-03-29 08:00] LABS: BASO % 0.5 % (0.0-2.0); EOS # 0.1 K/uL (0.0-0.7); EOS % 1.6 % (0.0-4.0); LYMPH # 1.6 K/uL (1.0-4.3); LYMPH % 17.3 % (20.0-40.0); MEAN CELL VOLUME 88.6 fL (80.0-94.0); MEAN CORPUSCULAR HEMOGLOBIN 29.9 pg (27.0-31.0); MEAN CORPUSCULAR HGB CONC 33.7 g/dL (33.0-37.0); MONO # 0.9 K/uL (0.0-0.8); MONO % 10.1 % (0.0-10.0); NEUT # 6.4 K/uL (1.8-7.0); NEUT % 70.5 % (50.0-75.0); RED CELL DISTRIBUTION WIDTH 12.7 % (11.5-14.5)
[2018-03-29 08:37] LABS: ALB/GLOB RATIO 0.9 (1.0-2.1); ALBUMIN 2.7 g/dL (3.5-5.0); ALT/SGPT 44 U/L (21-72); AST/SGOT 28 U/L (17-59); BLOOD UREA NITROGEN 6 mg/dL (9-20); CALCIUM 7.9 mg/dl (8.6-10.4); GFR NON-AFRICAN AMERICAN > 60
[2018-03-29] MEDS: Enoxaparin 40 mg Syringe SC SCH (09:13)
[2018-03-29] MEDS ORDERED: guaiFENesin 100 mg/5 ml Syrup UD PO ONE (09:15)
[2018-03-29] MEDS: Clotrimazole 1% Cream 15 GM TUBE TOP SCH ×2 (09:16→17:50)
--- NOTE | 2018-03-29 11:28 | CP.PCM.PN ---
Subjective - Date & Time of Evaluation Date of Evaluation: 03/29/18 Time of Evaluation: 11:24 - Subjective Subjective: Podiatry progress note for Dr. Phan 52 y/o male seen and evaluated at bedside. Patient states he is doing well, denies any pain at this time. Patient is resting comfortably and denies any acute overnight events. Dressing was intact, with mild sero-sanguinous drainage Objective - Vital Signs/Intake and Output Vital Signs (last 24 hours): Temp Pulse Resp BP Pulse Ox 97.9 F 88 20 110/69 95 03/29/18 08:00 03/29/18 08:00 03/29/18 08:00 03/29/18 08:00 03/29/18 08:00 Intake and Output: 03/29/18 03/29/18 06:59 18:59 Intake Total 1200 920 Output Total 1000 900 Balance 200 20 - Medications Medications: Current Medications Acetaminophen (Tylenol 325mg Tab) 650 mg PO Q6 PRN PRN Reason: Fever >100.4 F Last Admin: 03/27/18 21:10 Dose: 650 mg Acetaminophen (Tylenol 325mg Tab) 650 mg PO Q6 PRN PRN Reason: Pain, Mild (1-3) Last Admin: 03/28/18 05:59 Dose: 650 mg Aspirin (Aspirin Chewable) 81 mg PO DAILY [facility] Last Admin: 03/29/18 09:13 Dose: 81 mg Clotrimazole (Lotrimin 1%) 0 gm TOP BID [facility] Last Admin: 03/29/18 09:16 Dose: Not Given Dextrose (Dextrose 50% Inj) 0 ml IV STAT PRN; Protocol PRN Reason: Hypoglycemia Protocol Dextrose (Glutose 15) 0 gm PO ONCE PRN; Protocol PRN Reason: Hypoglycemia Protocol Enoxaparin Sodium (Lovenox) 40 mg SC DAILY [facility] Last Admin: 03/29/18 09:13 Dose: 40 mg Famotidine (Pepcid) 20 mg PO BID [facility] Last Admin: 03/29/18 09:13 Dose: 20 mg Glucagon (Glucagen Diagnostic Kit) 0 mg IM STAT PRN; Protocol PRN Reason: Hypoglycemia Protocol Piperacillin Sod/Tazobactam (Sod 3.375 gm/ Sodium Chloride) 100 mls @ 200 mls/hr IVPB Q6H [facility]; Protocol Last Admin: 03/29/18 06:32 Dose: 200 mls/hr Vancomycin/Sodium Chloride (Vancomycin 1 Gm/Ns 200 Ml) 1 gm in 200 mls @ 133 mls/hr IVPB Q12H [facility]; Protocol Stop: 03/30/18 14:01 Last Admin: 03/29/18 02:50 Dose: 133 mls/hr Dextrose (Dextrose 5% In Water 1000 Ml) 1,000 mls @ 0 mls/hr IV .Q0M PRN; Protocol PRN Reason: Hypoglycemia Protocol Sodium Chloride (Sodium Chloride 0.9%) 1,000 mls @ 100 mls/hr IV .Q10H [facility] Last Admin: 03/29/18 06:19 Dose: 100 mls/hr Insulin Human Isoph/Insulin Regular (Novolin 70/30 (70/30 Units/Ml) 10 Ml) 12 units SC AC [facility] Last Admin: 03/29/18 07:52 Dose: 12 units Insulin Human Regular (Novolin R) 0 unit SC ACHS [facility]; Protocol Last Admin: 03/29/18 07:52 Dose: 4 units Rosuvastatin Calcium (Crestor) 5 mg PO HS [facility] Last Admin: 03/28/18 21:30 Dose: 5 mg - Labs Labs: 03/29/18 07:43 03/29/18 07:43 - Constitutional Appears: Well, Non-toxic, No Acute Distress - Head Exam Head Exam: ATRAUMATIC, NORMOCEPHALIC - Extremities Exam Additional comments: Left Lower Extremity Exam VASC: DP and PT 2/4 palpable, CFT less than 3 seconds X 10, Tg warm to warm, +2 pitting edema to the dorsum of the left foot NEURO: grossly intact DERM: approximately 1 cm by 1 cm incision site noted to the dorsum of the foot at site of previous incision and drainage, minimal lateral fluctuance noted extending towards the third interspace distally, positive drainage noted, positive malodor, negative probe to bone, positive tunneling noted laterally towards the wound in the 3rd interspace, wound measuring 0.3 cm X 0.4 cm noted the medial base of the third digit with positive purulent drainage, positive malodor, negative probe to bone, improving positive surrounding erythema and edema ORTHO: minimal tenderness to palpation, MSK 5/5 - Neurological Exam Neurological Exam: Alert, Awake, Oriented x3 - Psychiatric Exam Psychiatric exam: Normal Affect, Normal Mood Assessment and Plan - Assessment and Plan (Free Text) Assessment: 52 y/o male patient seen and evaluated at bedside for wound and cellulitis to the dorsum of the left foot Plan: Patient seen and evaluated Plan discussed with attending Dr. Phan Chart, labs and vitals were reviewed- WBC (15.0 on arrival) trended down to 9.1 today, afebrile at this time Left foot X-rays- normal left foot radiographs Ordered MRI of Left Foot- STAT Wound Cultures- Pending POD1 s/p Incision and drainage performed at bedside of the wound with sterile #15 blade Today, Another 4-5 cc of purulent drainage was obtained, wound was copiously flushed with saline, packed with 1/2 inch iodoform packing, and dressed with betadine soaked DSD Ordered Surgical shoe for pain, patient to ambulate PWB to heel only Please contact Podiatry prior to MRI to change dressing Placed ID consult- recommendations appreciated Educated patient on likely etiology and possible OR incision and drainage if abscess noted on MRI Podiatry will continue to follow patient while in house
--- NOTE | 2018-03-29 13:45 | CP.PCM.PN ---
Subjective - Date & Time of Evaluation Date of Evaluation: 03/29/18 Time of Evaluation: 09:25 - Subjective Subjective: PGY-[address] Foster Patient is seen and examined at bedside. Patient states feeling well today. Patient states his left foot swelling and pain are improving. Patient was seen by podiatry yesterday, I&D done at bedside with no complication, packing applied to wound and foot bandaged. Patient has a dry cough, that comes and goes. Patient has no very little appetite and has not gone to the bathroom in two days. Patient complains of gas pain today. Denies fever, chills, chest pain, sob, n/v/d, leg swelling or pain, or urinary problems. Objective - Vital Signs/Intake and Output Vital Signs (last 24 hours): Temp Pulse Resp BP Pulse Ox 97.9 F 88 20 110/69 95 03/29/18 08:00 03/29/18 08:00 03/29/18 08:00 03/29/18 08:00 03/29/18 08:00 Intake and Output: 03/29/18 03/29/18 06:59 18:59 Intake Total 1200 920 Output Total 1000 900 Balance 200 20 - Medications Medications: Current Medications Acetaminophen (Tylenol 325mg Tab) 650 mg PO Q6 PRN PRN Reason: Fever >100.4 F Last Admin: 03/27/18 21:10 Dose: 650 mg Acetaminophen (Tylenol 325mg Tab) 650 mg PO Q6 PRN PRN Reason: Pain, Mild (1-3) Last Admin: 03/28/18 05:59 Dose: 650 mg Aspirin (Aspirin Chewable) 81 mg PO DAILY [facility] Last Admin: 03/29/18 09:13 Dose: 81 mg Clotrimazole (Lotrimin 1%) 0 gm TOP BID [facility] Last Admin: 03/29/18 09:16 Dose: Not Given Dextrose (Dextrose 50% Inj) 0 ml IV STAT PRN; Protocol PRN Reason: Hypoglycemia Protocol Dextrose (Glutose 15) 0 gm PO ONCE PRN; Protocol PRN Reason: Hypoglycemia Protocol Enoxaparin Sodium (Lovenox) 40 mg SC DAILY [facility] Last Admin: 03/29/18 09:13 Dose: 40 mg Famotidine (Pepcid) 20 mg PO BID [facility] Last Admin: 03/29/18 09:13 Dose: 20 mg Glucagon (Glucagen Diagnostic Kit) 0 mg IM STAT PRN; Protocol PRN Reason: Hypoglycemia Protocol Piperacillin Sod/Tazobactam (Sod 3.375 gm/ Sodium Chloride) 100 mls @ 200 mls/hr IVPB Q6H [facility]; Protocol Last Admin: 03/29/18 13:29 Dose: 200 mls/hr Vancomycin/Sodium Chloride (Vancomycin 1 Gm/Ns 200 Ml) 1 gm in 200 mls @ 133 mls/hr IVPB Q12H [facility]; Protocol Stop: 03/30/18 14:01 Last Admin: 03/29/18 02:50 Dose: 133 mls/hr Dextrose (Dextrose 5% In Water 1000 Ml) 1,000 mls @ 0 mls/hr IV .Q0M PRN; Protocol PRN Reason: Hypoglycemia Protocol Sodium Chloride (Sodium Chloride 0.9%) 1,000 mls @ 100 mls/hr IV .Q10H [facility] Last Admin: 03/29/18 06:19 Dose: 100 mls/hr Insulin Human Isoph/Insulin Regular (Novolin 70/30 (70/30 Units/Ml) 10 Ml) 12 units SC AC [facility] Last Admin: 03/29/18 12:04 Dose: 12 units Insulin Human Regular (Novolin R) 0 unit SC ACHS [facility]; Protocol Last Admin: 03/29/18 12:04 Dose: 4 units Rosuvastatin Calcium (Crestor) 5 mg PO HS [facility] Last Admin: 03/28/18 21:30 Dose: 5 mg - Labs Labs: 03/29/18 07:43 03/29/18 07:43 - Constitutional Appears: Well, Non-toxic, No Acute Distress - Head Exam Head Exam: ATRAUMATIC, NORMAL INSPECTION, NORMOCEPHALIC - Eye Exam Eye Exam: EOMI, Normal appearance - ENT Exam ENT Exam: Mucous Membranes Moist, Normal Exam - Neck Exam Neck Exam: Full ROM, Normal Inspection - Respiratory Exam Respiratory Exam: Clear to Ausculation Bilateral, NORMAL BREATHING PATTERN. absent: Rales, Rhonchi, Wheezes - Cardiovascular Exam Cardiovascular Exam: REGULAR RHYTHM, +S1, +S2 - GI/Abdominal Exam GI & Abdominal Exam: Soft, Normal Bowel Sounds. absent: Distended, Tenderness - Extremities Exam Extremities Exam: Full ROM. absent: Calf Tenderness, Pedal Edema, Tenderness Additional comments: Left foot wrapped in bandage, dressing clean, dry and intact no erythema in surrouding areas or distal lower extremity on left side - Back Exam Back Exam: NORMAL INSPECTION - Neurological Exam Neurological Exam: Alert, Awake, Oriented x3 - Psychiatric Exam Psychiatric exam: Normal Affect, Normal Mood - Skin Skin Exam: Dry, Intact, Normal Color, Warm Assessment and Plan - Assessment and Plan (Free Text) Assessment: 52 year old male admitted for left foot cellulitis Plan: Cellulitis of L foot - afebrile this am - leukocytosis improving, now at 9.1 - Xray L foot: normal - CXR: no active disease - UCx neg final - f/u BCx - negative growth for 48 hours - continue Vanco 1g IV q12h - continue Zosyn 3.375g IV q6h - Dr Daniels - ID consult - f/u recs - Dr Phan - Podiatry - ID at bedside done 03/28, 5 cc serosanginous drainage, packing placed, dressed - MRI left foot - remove packing before going to MRI - podiatry will repack wound - additional draining wound between 3rd and 4th foot - Will follow MRI left foot to r/o underlying abscess , will continue to follow up podiatry recs DM - f/u HbA1c - accuchecks ACHS - novolin 70/30 12u AC - high dose sliding scale - hypoglycemia protocol - ASA 81mg PO daily - Crestor 5mg PO HS - lisinopril 5mg PO daily - d/c Mild hypokalemia, resolved - Potassium 4.4 today - follow up am labs Bloating - Simethicone 80mg PO x1 dose coughing - lisinopril 5mg PO daily d/c - robitussin x 1 dose Tinea Pedis - lotrimin 1% topical BID PPX GI: pepcid DVT: lovenox DM diet IV fluids @ 100 cc/hr Plan discussed with Dr Kristin Johnson, PGY-1
--- NOTE | 2018-03-29 18:58 | CP.PCM.CON ---
History of Present Illness - History of Present Illness History of Present Illness: dictated Past Patient History - Past Medical History & Family History Past Medical History?: Yes - Past Social History Smoking Status: Never Smoked - CARDIAC Hx Cardiac Disorders: No - PULMONARY Hx Respiratory Disorders: No - NEUROLOGICAL Hx Neurological Disorder: No - HEENT Hx HEENT Problems: No - RENAL Hx Chronic Kidney Disease: No - ENDOCRINE/METABOLIC Hx Diabetes Mellitus Type 2: Yes - HEMATOLOGICAL/ONCOLOGICAL Hx Blood Disorders: No - INTEGUMENTARY Hx Dermatological Problems: No - MUSCULOSKELETAL/RHEUMATOLOGICAL Hx Musculoskeletal Disorders: No Hx Falls: No - GASTROINTESTINAL Hx Gastrointestinal Disorders: No - PSYCHIATRIC Hx Substance Use: No - SURGICAL HISTORY Hx Surgeries: Yes Other/Comment: Rt. eye surgery 8 years ago - ANESTHESIA Hx Anesthesia: Yes Hx Anesthesia Reactions: No Meds Allergies/Adverse Reactions: Allergies Allergy/AdvReac Type Severity Reaction Status Date / Time No Known Allergies Allergy Unverified 04/22/17 18:41 - Medications Medications: Current Medications Acetaminophen (Tylenol 325mg Tab) 650 mg PO Q6 PRN PRN Reason: Fever >100.4 F Last Admin: 03/27/18 21:10 Dose: 650 mg Acetaminophen (Tylenol 325mg Tab) 650 mg PO Q6 PRN PRN Reason: Pain, Mild (1-3) Last Admin: 03/28/18 05:59 Dose: 650 mg Aspirin (Aspirin Chewable) 81 mg PO DAILY [facility] Last Admin: 03/29/18 09:13 Dose: 81 mg Dextrose (Dextrose 50% Inj) 0 ml IV STAT PRN; Protocol PRN Reason: Hypoglycemia Protocol Dextrose (Glutose 15) 0 gm PO ONCE PRN; Protocol PRN Reason: Hypoglycemia Protocol Enoxaparin Sodium (Lovenox) 40 mg SC DAILY [facility] Last Admin: 03/29/18 09:13 Dose: 40 mg Famotidine (Pepcid) 20 mg PO BID [facility] Last Admin: 03/29/18 17:50 Dose: 20 mg Glucagon (Glucagen Diagnostic Kit) 0 mg IM STAT PRN; Protocol PRN Reason: Hypoglycemia Protocol Piperacillin Sod/Tazobactam (Sod 3.375 gm/ Sodium Chloride) 100 mls @ 200 mls/ hr IVPB Q6H [facility]; Protocol Last Admin: 03/29/18 13:29 Dose: 200 mls/hr Vancomycin/Sodium Chloride (Vancomycin 1 Gm/Ns 200 Ml) 1 gm in 200 mls @ 133 mls/hr IVPB Q12H [facility]; Protocol Stop: 03/30/18 14:01 Last Admin: 03/29/18 14:09 Dose: 133 mls/hr Dextrose (Dextrose 5% In Water 1000 Ml) 1,000 mls @ 0 mls/hr IV .Q0M PRN; Protocol PRN Reason: Hypoglycemia Protocol Sodium Chloride (Sodium Chloride 0.9%) 1,000 mls @ 100 mls/hr IV .Q10H [facility] Last Admin: 03/29/18 16:31 Dose: Not Given Insulin Human Isoph/Insulin Regular (Novolin 70/30 (70/30 Units/Ml) 10 Ml) 12 units SC AC [facility] Last Admin: 03/29/18 16:30 Dose: Not Given Insulin Human Regular (Novolin R) 0 unit SC ACHS [facility]; Protocol Last Admin: 03/29/18 16:31 Dose: Not Given Rosuvastatin Calcium (Crestor) 5 mg PO HS [facility] Last Admin: 03/28/18 21:30 Dose: 5 mg Results - Vital Signs Recent Vital Signs: Last Vital Signs Temp 98.3 F 03/29/18 16:00 Pulse 82 03/29/18 16:00 Resp 20 03/29/18 16:00 BP 104/64 03/29/18 16:00 Pulse Ox 96 03/29/18 16:00 - Labs Result Diagrams: 03/29/18 07:43 03/29/18 07:43 Labs: Laboratory Results - last 24 hr 03/28/18 03/29/18 03/29/18 21:05 07:22 07:43 WBC 9.1 RBC 3.33 L Hgb 10.0 L Hct 29.5 L MCV 88.6 MCH 29.9 MCHC 33.7 RDW 12.7 Plt Count 252 MPV 10.0 Neut % (Auto) 70.5 Lymph % (Auto) 17.3 L [place] % (Auto) 10.1 H Eos % (Auto) 1.6 Baso % (Auto) 0.5 Neut # (Auto) 6.4 Lymph # (Auto) 1.6 [place] # (Auto) 0.9 H Eos # (Auto) 0.1 Baso # (Auto) 0.0 Sodium Potassium Chloride Carbon Dioxide Anion Gap BUN Creatinine Est GFR ( Amer) Est GFR (Non-Af Amer) POC Glucose (mg/dL) 122 H 221 H Random Glucose Calcium Total Bilirubin AST ALT Alkaline Phosphatase Total Protein Albumin Globulin Albumin/Globulin Ratio 03/29/18 03/29/18 03/29/18 07:43 11:45 16:20 WBC RBC Hgb Hct MCV MCH MCHC RDW Plt Count MPV Neut % (Auto) Lymph % (Auto) [place] % (Auto) Eos % (Auto) Baso % (Auto) Neut # (Auto) Lymph # (Auto) [place] # (Auto) Eos # (Auto) Baso # (Auto) Sodium 135 Potassium 4.4 Chloride 104 Carbon Dioxide 22 Anion Gap 12 BUN 6 L Creatinine 0.9 Est GFR ( Amer) > 60 Est GFR (Non-Af Amer) > 60 POC Glucose (mg/dL) 221 H 110 Random Glucose 197 H D Calcium 7.9 L Total Bilirubin 0.4 AST 28 ALT 44 Alkaline Phosphatase 138 H Total Protein 5.6 L Albumin 2.7 L Globulin 2.9 Albumin/Globulin Ratio 0.9 L
[2018-03-30] MEDS: Piperacillin/Tazobact 3.375 GM in Sodium Chloride 100 ML IVPB SCH ×4 (00:39→19:30)
[2018-03-30] MEDS: Vancomycin 1 gm/NS 200 ml 1 GM/200 ML BAG IVPB SCH ×2 (01:50→14:33)
[2018-03-30] MEDS: Sodium Chloride 0.9% 1,000 ML IV SCH ×4 (02:00→21:14)
--- NOTE | 2018-03-30 03:23 | CON ---
DATE: 03/29/2018 HISTORY OF PRESENT ILLNESS: This patient is a 52-year-old male, was admitted by Dr. Abraham Magaña, and I was asked to see him for left foot cellulitis. He is a diabetic. He says that this foot redness started on the dorsum of the foot and ankle. He said it was maybe related to the shoe. He denies any trauma, denies any other insect bite or scratches or drainage from the foot, but he was having left foot swelling. He says it is only for around 1 week. He is a diabetic. He has no other symptoms. Denies any fevers or chills. No nausea, no vomiting, no diarrhea, no chest pain, no shortness of breath, no abdominal pain. He did have some swelling on the left foot. PAST SURGICAL HISTORY: Right retina surgery in 2009. ALLERGIES: HE IS NOT ALLERGIC TO ANY MEDICINE. MEDICATIONS: He takes insulin before his breakfast, aspirin, clotrimazole, dextrose, Lovenox, famotidine, glucagon, Zosyn, vancomycin, Novolin, Zestril, Crestor. REVIEW OF SYSTEMS: All other symptoms are negative; he denies those. PHYSICAL EXAMINATION VITAL SIGNS: I find his temperature is 98.3, pulse is 82, blood pressure 104/64, respirations are 20. HEENT: Head is atraumatic and normocephalic. Pupils are reacting to light. NECK: Supple. JVP is flat. LUNGS: Clear. No crackles or rales present. HEART: S1, S2 regular. No murmurs appreciated. ABDOMEN: Soft, nontender. No guarding, no rigidity present. Left foot has a swelling. The toes are also swollen. It looks like he does have a dressing at this time. Podiatry note was noted and he is supposed to have an MRI tomorrow. He has a 3 cm x 3 cm bulla on the dorsum of the which was malodorous, and he is admitted with an abscess on the foot with cellulitis. He is on IV antibiotics at this time. LABORATORY DATA: His labs showed white count 8.7, hemoglobin 9.6, hematocrit 27.8, this is from yesterday; but today 9.1, hemoglobin 10, hematocrit 29.5, platelet count is 252. BUN is 12, creatinine is 0.9, 138, potassium is 5.6. Micro minaya, urine culture and blood culture x2 all are negative. Wound culture is negative 24 hours. The x-ray of the foot was done, and the foot x-ray shows a normal left foot x-ray, he has. Chest x-ray was done, no active disease. ASSESSMENT AND PLAN: At this time, the patient has left foot cellulitis with blister formation. He is getting intravenous antibiotics. I am told that he is going to get an MRI done tomorrow to rule out osteomyelitis. He is a diabetic and we will follow. We will order ESR and CRP. We will continue with vancomycin and Zosyn at this time, supposed to be renewed, so we will wait for the renewal. We will follow. Zack Daniels MD
[2018-03-30 07:59] LABS: BASO # 0.1 K/uL (0.0-0.2); BASO % 0.8 % (0.0-2.0); EOS # 0.2 K/uL (0.0-0.7); EOS % 2.9 % (0.0-4.0); HEMOGLOBIN 10.5 g/dL (12.0-18.0); LYMPH # 1.4 K/uL (1.0-4.3); LYMPH % 21.9 % (20.0-40.0); MEAN CELL VOLUME 88.5 fL (80.0-94.0); MEAN CORPUSCULAR HGB CONC 33.9 g/dL (33.0-37.0); MEAN PLATELET VOLUME 9.5 fL (7.2-11.7); MONO # 0.7 K/uL (0.0-0.8); MONO % 11.2 % (0.0-10.0); NEUT # 4.1 K/uL (1.8-7.0); NEUT % 63.2 % (50.0-75.0); RBC 3.5 Mil/uL (4.40-5.90); RED CELL DISTRIBUTION WIDTH 13.1 % (11.5-14.5); WHITE BLOOD COUNT 6.5 K/uL (4.8-10.8)
[2018-03-30] MEDS: (Novolin R) Insulin Human Regular 100 units/ml vial SC SCH ×4 (08:10→21:42)
[2018-03-30] MEDS: (Novolin 70/30) NPH/Regular 70/30 Units/ml 10 ml vial SC SCH ×3 (08:10→17:00)
[2018-03-30 08:13] LABS: ALBUMIN 2.9 g/dL (3.5-5.0); ALT/SGPT 45 U/L (21-72); AST/SGOT 34 U/L (17-59); BLOOD UREA NITROGEN 6 mg/dL (9-20); CALCIUM 8.2 mg/dl (8.6-10.4); GFR NON-AFRICAN AMERICAN > 60
--- NOTE | 2018-03-30 08:18 | CP.PCM.PN ---
<Andre Hill - Last Filed: 03/30/18 16:12> Subjective - Date & Time of Evaluation Date of Evaluation: 03/30/18 Time of Evaluation: 08:14 - Subjective Subjective: Andre Hill PGY1 Progress Note for Dr. Desai Pt was examined at bedside this morning. He has no complaints. He denies pain in the L foot. Pt denies dizziness, shortness of breath, abdominal pain, chest pain, nausea, vomiting, diarrhea, dysuria. Objective - Vital Signs/Intake and Output Vital Signs (last 24 hours): Temp Pulse Resp BP Pulse Ox 97.5 F L 74 20 115/77 96 03/30/18 00:47 03/30/18 00:47 03/30/18 00:47 03/30/18 00:47 03/30/18 00:47 Intake and Output: 03/30/18 03/30/18 06:59 18:59 Intake Total 1200 920 Output Total 1500 Balance -300 920 - Medications Medications: Current Medications Acetaminophen (Tylenol 325mg Tab) 650 mg PO Q6 PRN PRN Reason: Fever >100.4 F Last Admin: 03/27/18 21:10 Dose: 650 mg Acetaminophen (Tylenol 325mg Tab) 650 mg PO Q6 PRN PRN Reason: Pain, Mild (1-3) Last Admin: 03/29/18 21:45 Dose: 650 mg Aspirin (Aspirin Chewable) 81 mg PO DAILY [facility] Last Admin: 03/29/18 09:13 Dose: 81 mg Dextrose (Dextrose 50% Inj) 0 ml IV STAT PRN; Protocol PRN Reason: Hypoglycemia Protocol Dextrose (Glutose 15) 0 gm PO ONCE PRN; Protocol PRN Reason: Hypoglycemia Protocol Enoxaparin Sodium (Lovenox) 40 mg SC DAILY [facility] Last Admin: 03/29/18 09:13 Dose: 40 mg Famotidine (Pepcid) 20 mg PO BID [facility] Last Admin: 03/29/18 17:50 Dose: 20 mg Glucagon (Glucagen Diagnostic Kit) 0 mg IM STAT PRN; Protocol PRN Reason: Hypoglycemia Protocol Piperacillin Sod/Tazobactam (Sod 3.375 gm/ Sodium Chloride) 100 mls @ 200 mls/hr IVPB Q6H [facility]; Protocol Last Admin: 03/30/18 06:47 Dose: 200 mls/hr Vancomycin/Sodium Chloride (Vancomycin 1 Gm/Ns 200 Ml) 1 gm in 200 mls @ 133 mls/hr IVPB Q12H [facility]; Protocol Stop: 03/30/18 14:01 Last Admin: 03/30/18 01:50 Dose: 133 mls/hr Dextrose (Dextrose 5% In Water 1000 Ml) 1,000 mls @ 0 mls/hr IV .Q0M PRN; Protocol PRN Reason: Hypoglycemia Protocol Sodium Chloride (Sodium Chloride 0.9%) 1,000 mls @ 100 mls/hr IV .Q10H [facility] Last Admin: 03/30/18 02:00 Dose: Not Given Insulin Human Isoph/Insulin Regular (Novolin 70/30 (70/30 Units/Ml) 10 Ml) 12 units SC AC [facility] Last Admin: 03/29/18 16:30 Dose: Not Given Insulin Human Regular (Novolin R) 0 unit SC ACHS [facility]; Protocol Last Admin: 03/29/18 21:27 Dose: Not Given Rosuvastatin Calcium (Crestor) 5 mg PO HS [facility] Last Admin: 03/29/18 21:45 Dose: 5 mg - Labs Labs: 03/30/18 07:53 03/30/18 07:53 - Additional Findings Additional findings: - Constitutional Appears: Well, Non-toxic, No Acute Distress - Head Exam Head Exam: ATRAUMATIC, NORMAL INSPECTION, NORMOCEPHALIC - Eye Exam Eye Exam: EOMI, Normal appearance - ENT Exam ENT Exam: Mucous Membranes Moist, Normal Exam - Neck Exam Neck Exam: Full ROM, Normal Inspection - Respiratory Exam Respiratory Exam: Clear to Ausculation Bilateral, NORMAL BREATHING PATTERN. absent: Rales, Rhonchi, Wheezes - Cardiovascular Exam Cardiovascular Exam: REGULAR RHYTHM, +S1, +S2 - GI/Abdominal Exam GI & Abdominal Exam: Soft, Normal Bowel Sounds. absent: Distended, Tenderness - Extremities Exam Extremities Exam: Full ROM. absent: Calf Tenderness, Pedal Edema, Tenderness Additional comments: Left foot wrapped in bandage, dressing clean, dry and intact no erythema in surrouding areas or distal lower extremity on left side Dystrophic nail changes on b/l LE, yellowing of nails - Back Exam Back Exam: NORMAL INSPECTION - Neurological Exam Neurological Exam: Alert, Awake, Oriented x3 - Psychiatric Exam Psychiatric exam: Normal Affect, Normal Mood - Skin Skin Exam: Dry, Intact, Normal Color, Warm Assessment and Plan - Assessment and Plan (Free Text) Assessment: 52 year old male admitted for left foot cellulitis, s/p bedside I&D. Plan: Cellulitis of L foot - afebrile, no leukocytosis - Xray L foot: normal - CT L foot: dorsal cutaneous ulceration with cellulitis. No abscess. No osteomyelitis. - No MRI as pt has metal dental implant - CXR: no active disease - UCx neg final - BCx neg - Wound Cx neg - continue Vanco 1g IV q12h - continue Zosyn 3.375g IV q6h - Dr Daniels - ID consult - recs appreciated - Dr Phan - Podiatry - recs appreciated - ID at bedside done 03/28, 03/29, serosanginous drainage, packing placed, dressed - to decide if pt will go to [place] DM - HbA1c 11.9 - accuchecks ACHS - novolin 70/30 12u AC - high dose sliding scale - hypoglycemia protocol - ASA 81mg PO daily - Crestor 5mg PO HS Tinea Pedis - lotrimin 1% topical BID PPX GI: pepcid DVT: lovenox DM diet IV fluids @ 100 cc/hr Pt seen and case reviewed with Dr. Desai <Ish Desai - Last Filed: 04/04/18 21:14> Objective - Vital Signs/Intake and Output Vital Signs (last 24 hours): Temp Pulse Resp BP Pulse Ox 97.9 F 64 20 117/73 96 04/04/18 07:58 04/04/18 07:58 04/04/18 07:58 04/04/18 07:58 04/04/18 07:58 Intake and Output: 04/04/18 04/05/18 18:59 06:59 Intake Total 1500 Output Total 500 Balance 1000 - Labs Labs: 04/04/18 07:19 04/04/18 07:19 PT 12.3 SECONDS (9.7-12.2) H 04/01/18 07:37 INR 1.1 04/01/18 07:37 APTT 32 SECONDS (21-34) 04/01/18 07:37 Attending/Attestation - Attestation I have personally seen and examined this patient.: Yes I have fully participated in the care of the patient.: Yes I have reviewed all pertinent clinical information, including history, physical exam and plan: Yes Notes (Text): seen and examined I and D at bedside done 03/28, 03/29. follow hand crocheter continue antibiotics d/w resident monitor sugar. Adjust insulin
--- NOTE | 2018-03-30 10:40 | CP.PCM.PN ---
Subjective - Date & Time of Evaluation Date of Evaluation: 03/30/18 Time of Evaluation: 10:37 - Subjective Subjective: Podiatry progress note for Dr. Phan 52 y/o male seen and evaluated at bedside. Patient states he is doing well, denies any pain at this time. Patient is resting comfortably and denies any acute overnight events. Patient aware he will be going for a CT scan today Dressing was intact, with mild sero-sanguinous drainage Objective - Vital Signs/Intake and Output Vital Signs (last 24 hours): Temp Pulse Resp BP Pulse Ox 98.1 F 89 20 136/76 95 03/30/18 07:00 03/30/18 07:00 03/30/18 07:00 03/30/18 07:00 03/30/18 07:00 Intake and Output: 03/30/18 03/30/18 06:59 18:59 Intake Total 1200 920 Output Total 1500 Balance -300 920 - Medications Medications: Current Medications Acetaminophen (Tylenol 325mg Tab) 650 mg PO Q6 PRN PRN Reason: Fever >100.4 F Last Admin: 03/27/18 21:10 Dose: 650 mg Acetaminophen (Tylenol 325mg Tab) 650 mg PO Q6 PRN PRN Reason: Pain, Mild (1-3) Last Admin: 03/29/18 21:45 Dose: 650 mg Aspirin (Aspirin Chewable) 81 mg PO DAILY [facility] Last Admin: 03/29/18 09:13 Dose: 81 mg Dextrose (Dextrose 50% Inj) 0 ml IV STAT PRN; Protocol PRN Reason: Hypoglycemia Protocol Dextrose (Glutose 15) 0 gm PO ONCE PRN; Protocol PRN Reason: Hypoglycemia Protocol Enoxaparin Sodium (Lovenox) 40 mg SC DAILY [facility] Last Admin: 03/29/18 09:13 Dose: 40 mg Famotidine (Pepcid) 20 mg PO BID [facility] Last Admin: 03/29/18 17:50 Dose: 20 mg Glucagon (Glucagen Diagnostic Kit) 0 mg IM STAT PRN; Protocol PRN Reason: Hypoglycemia Protocol Piperacillin Sod/Tazobactam (Sod 3.375 gm/ Sodium Chloride) 100 mls @ 200 mls/hr IVPB Q6H [facility]; Protocol Last Admin: 03/30/18 06:47 Dose: 200 mls/hr Vancomycin/Sodium Chloride (Vancomycin 1 Gm/Ns 200 Ml) 1 gm in 200 mls @ 133 mls/hr IVPB Q12H [facility]; Protocol Stop: 03/30/18 14:01 Last Admin: 03/30/18 01:50 Dose: 133 mls/hr Dextrose (Dextrose 5% In Water 1000 Ml) 1,000 mls @ 0 mls/hr IV .Q0M PRN; Prot ocol PRN Reason: Hypoglycemia Protocol Sodium Chloride (Sodium Chloride 0.9%) 1,000 mls @ 100 mls/hr IV .Q10H [facility] Last Admin: 03/30/18 02:00 Dose: Not Given Insulin Human Isoph/Insulin Regular (Novolin 70/30 (70/30 Units/Ml) 10 Ml) 12 units SC AC [facility] Last Admin: 03/30/18 08:10 Dose: 12 units Insulin Human Regular (Novolin R) 0 unit SC ACHS [facility]; Protocol Last Admin: 03/30/18 08:10 Dose: 4 units Rosuvastatin Calcium (Crestor) 5 mg PO HS [facility] Last Admin: 03/29/18 21:45 Dose: 5 mg - Labs Labs: 03/30/18 07:53 03/30/18 07:53 - Constitutional Appears: Well, Non-toxic, No Acute Distress - Head Exam Head Exam: ATRAUMATIC, NORMOCEPHALIC - Extremities Exam Additional comments: Left Lower Extremity Exam VASC: DP and PT 2/4 palpable, CFT less than 3 seconds X 10, Tg warm to warm, +2 pitting edema to the dorsum of the left foot NEURO: grossly intact DERM: approximately 1 cm by 1 cm incision site noted to the dorsum of the foot at site of previous incision and drainage, minimal lateral fluctuance noted extending towards the third interspace distally, positive drainage noted, positive malodor, negative probe to bone, positive tunneling noted laterally towards the wound in the 3rd interspace, wound measuring 0.3 cm X 0.4 cm noted the medial base of the third digit with positive purulent drainage, positive malodor, negative probe to bone, improving positive surrounding erythema and edema ORTHO: minimal tenderness to palpation, MSK 5/5 - Neurological Exam Neurological Exam: Alert, Awake, Oriented x3 - Psychiatric Exam Psychiatric exam: Normal Affect, Normal Mood Assessment and Plan - Assessment and Plan (Free Text) Assessment: 52 y/o male patient seen and evaluated at bedside for wound and cellulitis to the dorsum of the left foot Plan: Patient seen and evaluated Plan discussed with attending Dr. Phan Chart, labs and vitals were reviewed- WBC (15.0 on arrival) trended down to 6.5 today, afebrile at this time Left foot X-rays- normal left foot radiographs Ordered CT of the left foot, patient cannot do MRI due to metal dental implant Wound Cultures- no growth after 24 hours POD2 s/p Incision and drainage performed at bedside of the wound with sterile #15 blade Today, Another 4-5 cc of purulent drainage was obtained, wound was copiously flushed with saline, packed with 1/2 inch iodoform packing, and dressed with betadine soaked DSD Ordered Surgical shoe for pain, patient to ambulate PWB to heel only ID consult- recommendations were appreciated Continue IV Antibiotics Educated patient on likely etiology and possible OR incision and drainage if abscess noted on imaging Podiatry will continue to follow patient while in house
[2018-03-30] MEDS: Enoxaparin 40 mg Syringe SC SCH (10:59)
--- NOTE | 2018-03-30 15:42 | CT ---
Date of service: 03/30/2018 PROCEDURE: CT left lower extremity HISTORY: r/o possible abscess COMPARISON: Not available TECHNIQUE: 2.5 mm contiguous axial sections were acquired through the left foot and ankle. Sagittal and coronal images were reformatted from the axial scan. No intravenous contrast material was administered for this examination. Total exam DLP: 437.67 mGy-cm This CT exam was performed using 1 or more of the following dose reduction techniques: Automated exposure control, adjustment of the mA and/or kV according to patient size, and/or use of iterative reconstruction technique. FINDINGS: There is no osseous fracture. There is no lytic or blastic osseous lesion. There is mild sclerosis about the tibiotalar articulation, greater in the dome of the talus, consistent with osteoarthritis. There are no articular erosions seen. The remaining joint spaces and articular surfaces are preserved. There is no periosteal reaction seen. There is a cutaneous ulceration over the dorsal aspect of the 2nd metatarsal with wound packing seen within the ulcer. There is cellulitis over the dorsal aspect of the foot about the level of the cutaneous ulceration. This is manifested by cutaneous thickening and hazy increased attenuation of the subcutaneous fat. No other soft tissue abnormality is identified. There is no evidence of da abscess. IMPRESSION: Dorsal cutaneous ulceration with cellulitis. No evidence of abscess. No evidence of osteomyelitis. Please note that this is not considered a sensitive examination for detection of osteomyelitis. Mild tibiotalar osteoarthritis. No additional abnormality.
--- NOTE | 2018-03-30 18:24 | CP.PCM.PN ---
Subjective - Date & Time of Evaluation Date of Evaluation: 03/30/18 Time of Evaluation: 15:15 - Subjective Subjective: dictated Objective - Vital Signs/Intake and Output Vital Signs (last 24 hours): Temp Pulse Resp BP Pulse Ox 97.9 F 80 20 118/77 95 03/30/18 15:00 03/30/18 15:00 03/30/18 15:00 03/30/18 15:00 03/30/18 15:00 Intake and Output: 03/30/18 03/30/18 06:59 18:59 Intake Total 1200 2120 Output Total 1500 Balance -300 2120 - Medications Medications: Current Medications Acetaminophen (Tylenol 325mg Tab) 650 mg PO Q6 PRN PRN Reason: Fever >100.4 F Last Admin: 03/27/18 21:10 Dose: 650 mg Acetaminophen (Tylenol 325mg Tab) 650 mg PO Q6 PRN PRN Reason: Pain, Mild (1-3) Last Admin: 03/29/18 21:45 Dose: 650 mg Aspirin (Aspirin Chewable) 81 mg PO DAILY [facility] Last Admin: 03/30/18 10:59 Dose: 81 mg Dextrose (Dextrose 50% Inj) 0 ml IV STAT PRN; Protocol PRN Reason: Hypoglycemia Protocol Dextrose (Glutose 15) 0 gm PO ONCE PRN; Protocol PRN Reason: Hypoglycemia Protocol Enoxaparin Sodium (Lovenox) 40 mg SC DAILY [facility] Last Admin: 03/30/18 10:59 Dose: 40 mg Famotidine (Pepcid) 20 mg PO BID [facility] Last Admin: 03/30/18 17:56 Dose: 20 mg Glucagon (Glucagen Diagnostic Kit) 0 mg IM STAT PRN; Protocol PRN Reason: Hypoglycemia Protocol Piperacillin Sod/Tazobactam (Sod 3.375 gm/ Sodium Chloride) 100 mls @ 200 mls/hr IVPB Q6H [facility]; Protocol Last Admin: 03/30/18 12:52 Dose: 200 mls/hr Dextrose (Dextrose 5% In Water 1000 Ml) 1,000 mls @ 0 mls/hr IV .Q0M PRN; Protocol PRN Reason: Hypoglycemia Protocol Sodium Chloride (Sodium Chloride 0.9%) 1,000 mls @ 100 mls/hr IV .Q10H [facility] Last Admin: 03/30/18 12:48 Dose: Not Given Insulin Human Isoph/Insulin Regular (Novolin 70/30 (70/30 Units/Ml) 10 Ml) 15 units SC AC [facility] Last Admin: 03/30/18 17:00 Dose: 15 units Insulin Human Regular (Novolin R) 0 unit SC ACHS [facility]; Protocol Last Admin: 03/30/18 17:56 Dose: 4 units Rosuvastatin Calcium (Crestor) 5 mg PO HS [facility] Last Admin: 03/29/18 21:45 Dose: 5 mg - Labs Labs: 03/30/18 07:53 03/30/18 07:53
--- NOTE | 2018-03-30 22:02 | PN ---
DATE: 03/30/2018 SUBJECTIVE: The patient was seen today. He feels better. He was not able to get MRI because he has some metal in his mouth and so they did a CAT scan. The nurse showed me the CAT scan. It was no osteomyelitis. We will go over the details soon. He was doing well, otherwise. He did have a left foot swelling and has swelling on the leg also. OBJECTIVE: VITALS: T-max is 98.1, pulse 89, respirations 20, blood pressure 136/76, saturations 95%. HEENT: Head is atraumatic and normocephalic. NECK: Supple. LUNGS: Clear. HEART: S1, S2 regular. ABDOMEN: Soft, nontender. No guarding, no rigidity present. EXTREMITIES: Left foot has a dressing, and he was seen by lending consultant today, and leg has mild edema. He remains on vancomycin and Zosyn, and his white count is 6.5, hemoglobin 10.5, hematocrit 30.9, BUN is 6, creatinine 0.9. I am going to read the lending consultant note which states that it only has 1 cm x 1 cm incision site to the dorsum of the foot at the site of the previous I and D, minimal lateral fluctuance noted extending towards the third interspace digit. Positive drainage noted, positive malodor and negative probe to bone, positive tunneling noted laterally to the wound in the third interspace, wound is measuring 0.3 cm x 0.4 cm, noted on the medial base of the third digit with positive purulence and positive malodor. Right now, his wound culture is growing DPCs. We will follow the ID and Sensitivity. We will continue with the vancomycin and Zosyn at this time, and we will follow. He does have cellulitis and infected foot ulcers. He is diabetic but I am told it did not show any osteomyelitis. Let me see the CAT scan report. CAT scan report, there are subcutaneous ulceration with cellulitis. No evidence of abscess. No evidence of osteomyelitis. Please note that this is not considered a sensitive exam for detection of osteomyelitis, . We will see how things go with him, might have to continue antibiotics for now, and once I view it myself after the holidays, we will get other tests to exclude osteomyelitis. The patient was seen. Impression is same. Zack Daniels MD [facility] # [id number]
[2018-03-31] MEDS: Piperacillin/Tazobact 3.375 GM in Sodium Chloride 100 ML IVPB SCH ×4 (00:46→19:43)
[2018-03-31 06:59] LABS: BASO % 0.7 % (0.0-2.0); EOS # 0.2 K/uL (0.0-0.7); EOS % 2.9 % (0.0-4.0); HEMOGLOBIN 10.1 g/dL (12.0-18.0); LYMPH # 1.6 K/uL (1.0-4.3); MEAN CORPUSCULAR HEMOGLOBIN 29.5 pg (27.0-31.0); MEAN CORPUSCULAR HGB CONC 33.5 g/dL (33.0-37.0); MEAN PLATELET VOLUME 9.2 fL (7.2-11.7); MONO # 0.8 K/uL (0.0-0.8); MONO % 11.5 % (0.0-10.0); NEUT # 4.3 K/uL (1.8-7.0); NEUT % 61.9 % (50.0-75.0); RBC 3.41 Mil/uL (4.40-5.90); RED CELL DISTRIBUTION WIDTH 12.9 % (11.5-14.5); WHITE BLOOD COUNT 6.9 K/uL (4.8-10.8)
[2018-03-31 07:34] LABS: ALB/GLOB RATIO 0.9 (1.0-2.1); ALBUMIN 2.9 g/dL (3.5-5.0); ALT/SGPT 59 U/L (21-72); AST/SGOT 56 U/L (17-59); BLOOD UREA NITROGEN 5 mg/dL (9-20); GFR NON-AFRICAN AMERICAN > 60
[2018-03-31] MEDS: (Novolin R) Insulin Human Regular 100 units/ml vial SC SCH ×4 (08:23→21:40)
[2018-03-31] MEDS: (Novolin 70/30) NPH/Regular 70/30 Units/ml 10 ml vial SC SCH ×3 (08:24→17:13)
[2018-03-31] MEDS: Sodium Chloride 0.9% 1,000 ML IV SCH ×2 (08:40→18:00)
[2018-03-31] MEDS: Enoxaparin 40 mg Syringe SC SCH (09:39)
--- NOTE | 2018-03-31 12:22 | CP.PCM.PN ---
<David Johnson - Last Filed: 03/31/18 21:08> Subjective - Date & Time of Evaluation Date of Evaluation: 03/31/18 Time of Evaluation: 13:00 - Subjective Subjective: PGY-[address] Desai Patient is seen and examined at bedside. Patient has no complaints at this time, reports no acute events overnight. Patient admits to improving leg swelling and pain. Admits to improvement in coughing, and continues to be a dry cough. Patient is eating well and ambulating with boot. Patient denies any fever, chills, chest pain, shortness of breath, abdominal pain, n/v/d/c, urinary symptoms. Objective - Vital Signs/Intake and Output Vital Signs (last 24 hours): Temp Pulse Resp BP Pulse Ox 98.2 F 80 20 152/85 H 97 03/31/18 08:00 03/31/18 08:00 03/31/18 08:00 03/31/18 08:00 03/31/18 08:00 Intake and Output: 03/31/18 03/31/18 06:59 18:59 Intake Total 2240 Output Total 1000 Balance 1240 - Medications Medications: Current Medications Acetaminophen (Tylenol 325mg Tab) 650 mg PO Q6 PRN PRN Reason: Fever >100.4 F Last Admin: 03/27/18 21:10 Dose: 650 mg Acetaminophen (Tylenol 325mg Tab) 650 mg PO Q6 PRN PRN Reason: Pain, Mild (1-3) Last Admin: 03/29/18 21:45 Dose: 650 mg Aspirin (Aspirin Chewable) 81 mg PO DAILY [facility] Last Admin: 03/31/18 09:39 Dose: 81 mg Dextrose (Dextrose 50% Inj) 0 ml IV STAT PRN; Protocol PRN Reason: Hypoglycemia Protocol Dextrose (Glutose 15) 0 gm PO ONCE PRN; Protocol PRN Reason: Hypoglycemia Protocol Enoxaparin Sodium (Lovenox) 40 mg SC DAILY [facility] Last Admin: 03/31/18 09:39 Dose: 40 mg Famotidine (Pepcid) 20 mg PO BID [facility] Last Admin: 03/31/18 09:39 Dose: 20 mg Glucagon (Glucagen Diagnostic Kit) 0 mg IM STAT PRN; Protocol PRN Reason: Hypoglycemia Protocol Piperacillin Sod/Tazobactam (Sod 3.375 gm/ Sodium Chloride) 100 mls @ 200 mls/hr IVPB Q6H [facility]; Protocol Last Admin: 03/31/18 06:37 Dose: 200 mls/hr Dextrose (Dextrose 5% In Water 1000 Ml) 1,000 mls @ 0 mls/hr IV .Q0M PRN; Prot ocol PRN Reason: Hypoglycemia Protocol Sodium Chloride (Sodium Chloride 0.9%) 1,000 mls @ 100 mls/hr IV .Q10H [facility] Last Admin: 03/31/18 08:40 Dose: Not Given Vancomycin HCl 1,000 mg/ (Sodium Chloride) 250 mls @ 166.6 mls/hr IVPB Q12H [facility]; Protocol Last Admin: 03/31/18 03:50 Dose: 166.6 mls/hr Insulin Human Isoph/Insulin Regular (Novolin 70/30 (70/30 Units/Ml) 10 Ml) 15 units SC AC [facility] Last Admin: 03/31/18 11:46 Dose: 15 units Insulin Human Regular (Novolin R) 0 unit SC ACHS [facility]; Protocol Last Admin: 03/31/18 11:45 Dose: 6 units Rosuvastatin Calcium (Crestor) 5 mg PO HS [facility] Last Admin: 03/30/18 22:05 Dose: 5 mg - Labs Labs: 03/31/18 06:44 03/31/18 06:44 - Constitutional Appears: Non-toxic, No Acute Distress - Head Exam Head Exam: ATRAUMATIC, NORMOCEPHALIC - Eye Exam Eye Exam: EOMI, Normal appearance - ENT Exam ENT Exam: Mucous Membranes Moist, Normal Exam - Neck Exam Neck Exam: Full ROM - Respiratory Exam Respiratory Exam: Clear to Ausculation Bilateral, NORMAL BREATHING PATTERN. absent: Rales, Rhonchi, Wheezes - Cardiovascular Exam Cardiovascular Exam: REGULAR RHYTHM, +S1, +S2 - GI/Abdominal Exam GI & Abdominal Exam: Soft, Normal Bowel Sounds. absent: Tenderness - Extremities Exam Additional comments: left foot covered with bandage Dorsum of left foot open wound, covered with Iodine packing, draining purulent material, around 5 cc open wound draining purulent material between 3rd and 4th toe dry, peeling skin observed in toes and dorsum side of foot. - Back Exam Back Exam: NORMAL INSPECTION - Neurological Exam Neurological Exam: Alert, Awake, CN II-XII Intact, Oriented x3 Neuro motor strength exam: Left Lower Extremity: 5, Right Lower Extremity: 5 - Psychiatric Exam Psychiatric exam: Normal Affect, Normal Mood - Skin Skin Exam: Warm Assessment and Plan - Assessment and Plan (Free Text) Assessment: 52 year old male with PMHx of uncontrolled DM, admitted for left foot cellulitis, s/p Bedside I&D, to be take with OR tomorrow 04/01/18 for sterilized I&D with Dr Pina. Plan: Cellulitis of L foot - continue to be afebrile, no leukocytosis today - Xray L foot: normal - CT L foot: dorsal cutaneous ulceration with cellulitis. No abscess. No osteomyelitis. - No MRI as pt has metal dental implant - CXR: no active disease - UCx neg final - BCx neg - Wound Cx - coagulase negative staph, streptococcus viridiansm only resistant to penicillin - continue Vanco 1g IV q12h - continue Zosyn 3.375g IV q6h - Dr Daniels - ID consult - will follow recs for abx - Dr Phan - Podiatry - recs appreciated - ID at bedside done 03/28, 03/29, serosanginous drainage, packing placed, dressed - Patient scheduled for the OR Friday04/01/18 at 12 noon - Please provide medical clearance - NPO Order placed and anti-coagulants placed on hold Medical Clearance for ID 04/01/18 - after review of Chest xray, ekg and labs, patient is medically optimized for surgery tomorrow to go for sterilized I&D - f/u am labs and coags DM - HbA1c 11.9 - accuchecks ACHS - novolin 70/30 12u AC - high dose sliding scale - hypoglycemia protocol - ASA 81mg PO daily - Crestor 5mg PO HS Tinea Pedis - lotrimin 1% topical BID PPX GI: pepcid DVT: lovenox - held for procedure tomorrow DM diet - NPO after midnight Plan discussed with Dr Lloyd Johnson, PGY-1 <Ish Desai - Last Filed: 04/04/18 21:12> Objective - Vital Signs/Intake and Output Vital Signs (last 24 hours): Temp Pulse Resp BP Pulse Ox 97.9 F 64 20 117/73 96 04/04/18 07:58 01/05/19 07:58 04/04/18 07:58 04/04/18 07:58 04/04/18 07:58 Intake and Output: 04/04/18 04/05/18 18:59 06:59 Intake Total 1500 Output Total 500 Balance 1000 - Labs Labs: 04/04/18 07:19 04/04/18 07:19 PT 12.3 SECONDS (9.7-12.2) H 04/01/18 07:37 INR 1.1 04/01/18 07:37 APTT 32 SECONDS (21-34) 04/01/18 07:37 Attending/Attestation - Attestation I have personally seen and examined this patient.: Yes I have fully participated in the care of the patient.: Yes I have reviewed all pertinent clinical information, including history, physical exam and plan: Yes Notes (Text): seen and examined continue antibiotics kelsy and ritika Patient scheduled for the OR Friday04/01/18 at 12 noon monitor sugar
--- NOTE | 2018-03-31 13:07 | CP.PCM.PN ---
Subjective - Date & Time of Evaluation Date of Evaluation: 03/31/18 Time of Evaluation: 13:04 - Subjective Subjective: Podiatry progress note for Dr. Phan 52 y/o male seen and evaluated at bedside. Patient states he is doing well, denies any pain at this time. Patient is resting comfortably and denies any acute overnight events. Patient aware he will be going for a CT scan today Dressing was intact, with mild sero-sanguinous drainage Objective - Vital Signs/Intake and Output Vital Signs (last 24 hours): Temp Pulse Resp BP Pulse Ox 98.2 F 80 20 152/85 H 97 03/31/18 08:00 03/31/18 08:00 03/31/18 08:00 03/31/18 08:00 03/31/18 08:00 Intake and Output: 03/31/18 03/31/18 06:59 18:59 Intake Total 2240 Output Total 1000 Balance 1240 - Medications Medications: Current Medications Acetaminophen (Tylenol 325mg Tab) 650 mg PO Q6 PRN PRN Reason: Fever >100.4 F Last Admin: 03/27/18 21:10 Dose: 650 mg Acetaminophen (Tylenol 325mg Tab) 650 mg PO Q6 PRN PRN Reason: Pain, Mild (1-3) Last Admin: 03/29/18 21:45 Dose: 650 mg Aspirin (Aspirin Chewable) 81 mg PO DAILY [facility] [place] Last Admin: 03/31/18 09:39 Dose: 81 mg Dextrose (Dextrose 50% Inj) 0 ml IV STAT PRN; Protocol PRN Reason: Hypoglycemia Protocol Dextrose (Glutose 15) 0 gm PO ONCE PRN; Protocol PRN Reason: Hypoglycemia Protocol Enoxaparin Sodium (Lovenox) 40 mg SC DAILY [facility] [place] Last Admin: 03/31/18 09:39 Dose: 40 mg Famotidine (Pepcid) 20 mg PO BID [facility] [place] Last Admin: 03/31/18 09:39 Dose: 20 mg Glucagon (Glucagen Diagnostic Kit) 0 mg IM STAT PRN; Protocol PRN Reason: Hypoglycemia Protocol Piperacillin Sod/Tazobactam (Sod 3.375 gm/ Sodium Chloride) 100 mls @ 200 mls/hr IVPB Q6H [facility] [place]; Protocol Last Admin: 03/31/18 06:37 Dose: 200 mls/hr Dextrose (Dextrose 5% In Water 1000 Ml) 1,000 mls @ 0 mls/hr IV .Q0M PRN; Protocol PRN Reason: Hypoglycemia Protocol Sodium Chloride (Sodium Chloride 0.9%) 1,000 mls @ 100 mls/hr IV .Q10H [facility] [place] Last Admin: 03/31/18 08:40 Dose: Not Given Vancomycin HCl 1,000 mg/ (Sodium Chloride) 250 mls @ 166.6 mls/hr IVPB Q12H [facility]; Protocol Last Admin: 03/31/18 03:50 Dose: 166.6 mls/hr Insulin Human Isoph/Insulin Regular (Novolin 70/30 (70/30 Units/Ml) 10 Ml) 15 units SC AC [facility] [place] Last Admin: 03/31/18 11:46 Dose: 15 units Insulin Human Regular (Novolin R) 0 unit SC ACHS [facility] [place]; Protocol Last Admin: 03/31/18 11:45 Dose: 6 units Rosuvastatin Calcium (Crestor) 5 mg PO HS [facility] [place] Last Admin: 03/30/18 22:05 Dose: 5 mg - Labs Labs: 03/31/18 06:44 03/31/18 06:44 - Constitutional Appears: Well, Non-toxic, No Acute Distress - Head Exam Head Exam: ATRAUMATIC, NORMOCEPHALIC - Extremities Exam Additional comments: Left Lower Extremity Exam VASC: DP and PT 2/4 palpable, CFT less than 3 seconds X 10, Tg warm to warm, +2 pitting edema to the dorsum of the left foot NEURO: grossly intact DERM: approximately 1 cm by 1 cm incision site noted to the dorsum of the foot at site of previous incision and drainage, minimal lateral fluctuance noted extending towards the third interspace distally, positive drainage noted, positive malodor, negative probe to bone, positive tunneling noted laterally towards the wound in the 3rd interspace, wound measuring 0.3 cm X 0.4 cm noted the medial base of the third digit with positive purulent drainage, positive malodor, negative probe to bone, improving positive surrounding erythema and edema ORTHO: minimal tenderness to palpation, MSK 5/5 - Neurological Exam Neurological Exam: Alert, Awake, Oriented x3 - Psychiatric Exam Psychiatric exam: Normal Affect, Normal Mood Assessment and Plan - Assessment and Plan (Free Text) Assessment: 52 y/o male patient seen and evaluated at bedside for wound and cellulitis to the dorsum of the left foot Plan: Patient seen and evaluated Plan discussed with attending Dr. Phan Chart, labs and vitals were reviewed- WBC (15.0 on arrival) trended down to 6.5 today, afebrile at this time Left foot X-rays- normal left foot radiographs CT- no abscess noted Wound Cultures- Coag Neg Staph, Strep viridans POD3 s/p Incision and drainage performed at bedside of the wound with sterile #15 blade Today, Another 4-5 cc of purulent drainage was obtained, wound was copiously flushed with saline, packed with 1/2 inch iodoform packing, and dressed with betadine soaked DSD Ordered Surgical shoe for pain, patient to ambulate PWB to heel only ID consult- recommendations were appreciated Continue IV Antibiotics Patient scheduled for the OR Friday04/01/18 at 12 noon Please provide medical clearance NPO Order placed and anti-coagulants placed on hold Podiatry will continue to follow patient while in house
[2018-04-01] MEDS: Piperacillin/Tazobact 3.375 GM in Sodium Chloride 100 ML IVPB SCH ×4 (01:16→20:00)
[2018-04-01 07:47] LABS: BASO % 0.7 % (0.0-2.0); EOS # 0.2 K/uL (0.0-0.7); EOS % 2.8 % (0.0-4.0); HEMOGLOBIN 10.9 g/dL (12.0-18.0); LYMPH # 1.4 K/uL (1.0-4.3); LYMPH % 20.4 % (20.0-40.0); MEAN CELL VOLUME 88.4 fL (80.0-94.0); MEAN CORPUSCULAR HEMOGLOBIN 29.9 pg (27.0-31.0); MEAN CORPUSCULAR HGB CONC 33.8 g/dL (33.0-37.0); MEAN PLATELET VOLUME 9.4 fL (7.2-11.7); MONO # 0.6 K/uL (0.0-0.8); MONO % 9.7 % (0.0-10.0); NEUT # 4.4 K/uL (1.8-7.0); NEUT % 66.4 % (50.0-75.0); RBC 3.64 Mil/uL (4.40-5.90); RED CELL DISTRIBUTION WIDTH 12.7 % (11.5-14.5); WHITE BLOOD COUNT 6.7 K/uL (4.8-10.8)
[2018-04-01 07:50] LABS: INR 1.1; PROTHROMBIN TIME 12.3 SECONDS (9.7-12.2)
[2018-04-01] MEDS: (Novolin R) Insulin Human Regular 100 units/ml vial SC SCH ×4 (07:51→22:10)
[2018-04-01] MEDS: (Novolin 70/30) NPH/Regular 70/30 Units/ml 10 ml vial SC SCH ×3 (07:51→17:10)
[2018-04-01 08:08] LABS: ALBUMIN 3.3 g/dL (3.5-5.0); ALT/SGPT 74 U/L (21-72); AST/SGOT 69 U/L (17-59); BLOOD UREA NITROGEN 9 mg/dL (9-20); CALCIUM 8.5 mg/dl (8.6-10.4); GFR NON-AFRICAN AMERICAN > 60
--- NOTE | 2018-04-01 09:41 | CP.PCM.PN ---
<Andre Hill - Last Filed: 04/01/18 13:12> Subjective - Date & Time of Evaluation Date of Evaluation: 04/01/18 Time of Evaluation: 09:38 - Subjective Subjective: Andre Hill PGY1 Progress Note for Dr. Desai Pt was examined at bedside this morning. He denies any pain in the foot. He has no complaints. He denies fever, chills, dizziness, shortness of breath, abdominal pain, chest pain, nausea, vomiting, diarrhea. Objective - Vital Signs/Intake and Output Vital Signs (last 24 hours): Temp Pulse Resp BP Pulse Ox 98.6 F 76 20 137/81 97 04/01/18 08:00 04/01/18 08:00 04/01/18 08:00 04/01/18 08:00 04/01/18 08:00 Intake and Output: 04/01/18 04/01/18 06:59 18:59 Intake Total 1900 Balance 1900 - Medications Medications: Current Medications Acetaminophen (Tylenol 325mg Tab) 650 mg PO Q6 PRN PRN Reason: Fever >100.4 F Last Admin: 03/27/18 21:10 Dose: 650 mg Acetaminophen (Tylenol 325mg Tab) 650 mg PO Q6 PRN PRN Reason: Pain, Mild (1-3) Last Admin: 03/29/18 21:45 Dose: 650 mg Aspirin (Aspirin Chewable) 81 mg PO DAILY [facility] Last Admin: 03/31/18 09:39 Dose: 81 mg Dextrose (Dextrose 50% Inj) 0 ml IV STAT PRN; Protocol PRN Reason: Hypoglycemia Protocol Dextrose (Glutose 15) 0 gm PO ONCE PRN; Protocol PRN Reason: Hypoglycemia Protocol Enoxaparin Sodium (Lovenox) 40 mg SC DAILY [facility] Last Admin: 03/31/18 09:39 Dose: 40 mg Famotidine (Pepcid) 20 mg PO BID [facility] Last Admin: 04/01/18 09:11 Dose: Not Given Glucagon (Glucagen Diagnostic Kit) 0 mg IM STAT PRN; Protocol PRN Reason: Hypoglycemia Protocol Piperacillin Sod/Tazobactam (Sod 3.375 gm/ Sodium Chloride) 100 mls @ 200 mls/hr IVPB Q6H [facility]; Protocol Last Admin: 04/01/18 06:44 Dose: 200 mls/hr Dextrose (Dextrose 5% In Water 1000 Ml) 1,000 mls @ 0 mls/hr IV .Q0M PRN; Protocol PRN Reason: Hypoglycemia Protocol Vancomycin HCl 1,000 mg/ (Sodium Chloride) 250 mls @ 166.6 mls/hr IVPB Q12H [facility]; Protocol Last Admin: 04/01/18 03:54 Dose: 166.6 mls/hr Insulin Human Isoph/Insulin Regular (Novolin 70/30 (70/30 Units/Ml) 10 Ml) 15 units SC AC [facility] Last Admin: 04/01/18 07:51 Dose: Not Given Insulin Human Regular (Novolin R) 0 unit SC ACHS [facility]; Protocol Last Admin: 04/01/18 07:51 Dose: Not Given Rosuvastatin Calcium (Crestor) 5 mg PO HS [facility] Last Admin: 03/31/18 21:38 Dose: 5 mg - Labs Labs: 04/01/18 07:37 04/01/18 07:37 PT 12.3 SECONDS (9.7-12.2) H 04/01/18 07:37 INR 1.1 04/01/18 07:37 APTT 32 SECONDS (21-34) 04/01/18 07:37 - Additional Findings Additional findings: - Constitutional Appears: Non-toxic, No Acute Distress - Head Exam Head Exam: ATRAUMATIC, NORMOCEPHALIC - Eye Exam Eye Exam: EOMI, Normal appearance - ENT Exam ENT Exam: Mucous Membranes Moist, Normal Exam - Neck Exam Neck Exam: Full ROM - Respiratory Exam Respiratory Exam: Clear to Ausculation Bilateral, NORMAL BREATHING PATTERN. absent: Rales, Rhonchi, Wheezes - Cardiovascular Exam Cardiovascular Exam: REGULAR RHYTHM, +S1, +S2 - GI/Abdominal Exam GI & Abdominal Exam: Soft, Normal Bowel Sounds. absent: Tenderness - Extremities Exam Additional comments: left foot covered with bandage Dorsum of left foot open wound, covered with Iodine packing, draining purulent material xerotic scale and exfoliative changes on dorsum of L foot yellowing and dyskeratosis of toenails b/l - Back Exam Back Exam: NORMAL INSPECTION - Neurological Exam Neurological Exam: Alert, Awake, CN II-XII Intact, Oriented x3 Neuro motor strength exam: Left Lower Extremity: 5, Right Lower Extremity: 5 - Psychiatric Exam Psychiatric exam: Normal Affect, Normal Mood - Skin Skin Exam: Warm Assessment and Plan - Assessment and Plan (Free Text) Assessment: 52 year old male with PMHx of uncontrolled DM, admitted for left foot cellulitis, s/p Bedside I&D, s/p I&D in OR 04/01/18 with Podiatry Plan: Cellulitis of L foot - continue to be afebrile, no leukocytosis - s/p I&D in OR 04/01/18 with Podiatry - s/p bedside I&D x3 with Podiatry - Xray L foot: normal - CT L foot: dorsal cutaneous ulceration with cellulitis. No abscess. No osteomyelitis. - No MRI as pt has metal dental implant - CXR: no active disease - UCx neg final - BCx neg - Wound Cx - coagulase negative staph, streptococcus viridians only resistant to penicillin - continue Vanco 1g IV q12h - continue Zosyn 3.375g IV q6h - Dr Daniels - ID consult - will follow recs for abx - Dr Phan - Podiatry - recs appreciated - ID at bedside done 03/28, 03/29, serosanginous drainage, packing placed, dressed - s/p I&D in OR 04/01/18 DM - HbA1c 11.9 - accuchecks ACHS - novolin /30 12u AC - high dose sliding scale - hypoglycemia protocol - ASA 81mg PO daily - Crestor 5mg PO HS Tinea Pedis - lotrimin 1% topical BID PPX GI: pepcid DVT: lovenox DM diet Plan discussed with Dr Desai <Ish Desai - Last Filed: 04/04/18 21:11> Objective - Vital Signs/Intake and Output Vital Signs (last 24 hours): Temp Pulse Resp BP Pulse Ox 97.9 F 64 20 117/73 96 04/04/18 07:58 04/04/18 07:58 04/04/18 07:58 04/04/18 07:58 04/04/18 07:58 Intake and Output: 04/04/18 04/05/18 18:59 06:59 Intake Total 1500 Output Total 500 Balance 1000 - Labs Labs: 04/04/18 07:19 04/04/18 07:19 PT 12.3 SECONDS (9.7-12.2) H 04/01/18 07:37 INR 1.1 04/01/18 07:37 APTT 32 SECONDS (21-34) 04/01/18 07:37 Attending/Attestation - Attestation I have personally seen and examined this patient.: Yes I have fully participated in the care of the patient.: Yes I have reviewed all pertinent clinical information, including history, physical exam and plan: Yes Notes (Text): seen and examined discussed about sugar control I and D today continue ritu
[2018-04-01] MEDS ORDERED: Lidocaine Hydrochloride 5 ML INJ ONE (12:37)
[2018-04-01] MEDS ORDERED: Midazolam 2 MG/2 ML VIAL ONE (12:37)
[2018-04-01] MEDS ORDERED: Propofol 10 mg/ml Inj (20 ML) ONE (12:37)
[2018-04-01] MEDS ORDERED: Bupivacaine 0.25% 20 ML INJ IJ ONE (12:44)
[2018-04-01] MEDS ORDERED: Lidocaine Hydrochloride 10 ML INJ ONE (12:44)
[2018-04-01] MEDS ORDERED: Oxycodone/Acetaminophen 5/325 mg Tab PO PRN (13:28)
[2018-04-01] MEDS ORDERED: HYDROmorphone 0.5 mg/0.5 ml ISec IVP PRN (13:33)
--- NOTE | 2018-04-01 13:33 | PCM.SURG1 ---
Surgeon's Initial Post Op Note - Surgeon's Notes Surgeon: Dr. Phan, DPM [employer] Worker: Dr. Jerri Kirk, PGY1 Type of Anesthesia: IV Sedation, Local Pre-Operative Diagnosis: L foot abscess with cellulitis Operative Findings: See dictation. I: None. M: 1/4 inch iodoform packing, 2-0 prolene Post-Operative Diagnosis: Same Operation Performed: L foot incision and drainage Specimen/Specimens Removed: None from L foot Estimated Blood Loss: EBL {In ML}: 5 Blood Products Given: N/A Drains Used: No Drains Post-Op Condition: Good Date of Surgery/Procedure: 04/01/18 Time of Surgery/Procedure: 13:24
[2018-04-01] MEDS: Lactated Ringer's 1,000 ML IV SCH (21:10)
[2018-04-02] MEDS: Lactated Ringer's 1,000 ML IV SCH ×5 (01:45→23:05)
--- NOTE | 2018-04-02 01:51 | PN ---
DATE: 04/01/2018 SUBJECTIVE: The patient is postop. He had an abscess drained this afternoon and I saw him right after that. The nurse said he was getting antibiotics. PHYSICAL EXAMINATION VITAL SIGNS: T-max was 97.7, pulse 90, blood pressure 109/67, respirations are 20. HEENT: Head is atraumatic and normocephalic. NECK: Supple. LUNGS: Clear. HEART: S1 and S2 regular. ABDOMEN: Soft, nontender. No guarding, no rigidity present. EXTREMITIES: Left foot has dressings on. LABORATORY DATA: Labs are noted. Labs show wound culture pending from the OR today; we will follow. But the initial wound culture, which was done before, came out coagulase-negative Staph and Strep viridans, and it is very sensitive; however, at this time, I would leave the vancomycin and Zosyn on if the creatinine is okay and wait for the OR cultures. White count is 6.7. BUN is 97, creatinine is 1. PLAN: So at this time, we will wait for final cultures from the OR and we will continue vancomycin and Zosyn. I was told he has dentures, so we did a CT of the lower extremity, which did not show any osteomyelitis, but we will continue antibiotics until the wound heals. Zack Daniels MD
[2018-04-02] MEDS: Piperacillin/Tazobact 3.375 GM in Sodium Chloride 100 ML IVPB SCH ×2 (02:03→08:05)
[2018-04-02 07:56] LABS: BASO % 0.3 % (0.0-2.0); EOS # 0.2 K/uL (0.0-0.7); EOS % 2.7 % (0.0-4.0); HEMOGLOBIN 10.5 g/dL (12.0-18.0); LYMPH # 1.1 K/uL (1.0-4.3); LYMPH % 14.9 % (20.0-40.0); MEAN CELL VOLUME 87.5 fL (80.0-94.0); MEAN CORPUSCULAR HGB CONC 34.3 g/dL (33.0-37.0); MEAN PLATELET VOLUME 9.1 fL (7.2-11.7); MONO # 0.7 K/uL (0.0-0.8); MONO % 8.8 % (0.0-10.0); NEUT # 5.5 K/uL (1.8-7.0); NEUT % 73.3 % (50.0-75.0); RBC 3.52 Mil/uL (4.40-5.90); RED CELL DISTRIBUTION WIDTH 12.6 % (11.5-14.5); WHITE BLOOD COUNT 7.5 K/uL (4.8-10.8)
[2018-04-02 08:09] LABS: ALB/GLOB RATIO 0.9 (1.0-2.1); ALT/SGPT 70 U/L (21-72); AST/SGOT 37 U/L (17-59); BLOOD UREA NITROGEN 7 mg/dL (9-20); CALCIUM 8.2 mg/dl (8.6-10.4); GFR NON-AFRICAN AMERICAN > 60
[2018-04-02] MEDS: (Novolin R) Insulin Human Regular 100 units/ml vial SC SCH ×4 (08:29→21:38)
[2018-04-02] MEDS: (Novolin 70/30) NPH/Regular 70/30 Units/ml 10 ml vial SC SCH ×3 (08:30→16:30)
--- NOTE | 2018-04-02 09:23 | CP.PCM.PN ---
<Andre Hill - Last Filed: 04/02/18 14:14> Subjective - Date & Time of Evaluation Date of Evaluation: 04/02/18 Time of Evaluation: 09:20 - Subjective Subjective: Andre Hill PGY1 Progress Note for Dr. Desai Pt was examined at bedside this morning. He denies any pain in the L foot, fever, chills. He reports eating some chicken and rice from home last night after the surgery. He denied chest pain, abdominal pain, nausea, vomiting, diarrhea, dysuria. Update: Pt reports itchy rash that began this afternoon around noon. He denies previous history of this type of rash, any allergies, or use of new topical soaps or lotions. Objective - Vital Signs/Intake and Output Vital Signs (last 24 hours): Temp Pulse Resp BP Pulse Ox 97.8 F 73 20 108/63 95 04/02/18 08:00 04/02/18 08:00 04/02/18 08:00 04/02/18 08:00 04/02/18 08:00 Intake and Output: 04/02/18 04/02/18 06:59 18:59 Intake Total 2450 Output Total 1000 Balance 1450 - Medications Medications: Current Medications Acetaminophen (Tylenol 325mg Tab) 650 mg PO Q6 PRN PRN Reason: Fever >100.4 F Last Admin: 03/27/18 21:10 Dose: 650 mg Acetaminophen (Tylenol 325mg Tab) 650 mg PO Q6 PRN PRN Reason: Pain, Mild (1-3) Last Admin: 03/29/18 21:45 Dose: 650 mg Acetaminophen (Tylenol 325mg Tab) 650 mg PO Q4H PRN PRN Reason: FOR MILD PAIN Aspirin (Aspirin Chewable) 81 mg PO DAILY [facility] Last Admin: 03/31/18 09:39 Dose: 81 mg Dextrose (Dextrose 50% Inj) 0 ml IV STAT PRN; Protocol PRN Reason: Hypoglycemia Protocol Dextrose (Glutose 15) 0 gm PO ONCE PRN; Protocol PRN Reason: Hypoglycemia Protocol Enoxaparin Sodium (Lovenox) 40 mg SC DAILY [facility] Last Admin: 03/31/18 09:39 Dose: 40 mg Famotidine (Pepcid) 20 mg PO BID [facility] Last Admin: 04/01/18 18:52 Dose: 20 mg Glucagon (Glucagen Diagnostic Kit) 0 mg IM STAT PRN; Protocol PRN Reason: Hypoglycemia Protocol Piperacillin Sod/Tazobactam (Sod 3.375 gm/ Sodium Chloride) 100 mls @ 200 mls/hr IVPB Q6H [facility]; Protocol Last Admin: 04/02/18 02:03 Dose: 200 mls/hr Dextrose (Dextrose 5% In Water 1000 Ml) 1,000 mls @ 0 mls/hr IV .Q0M PRN; Protocol PRN Reason: Hypoglycemia Protocol Vancomycin HCl 1,000 mg/ (Sodium Chloride) 250 mls @ 166.6 mls/hr IVPB Q12H [facility]; Protocol Last Admin: 04/02/18 04:15 Dose: 166.6 mls/hr Lactated Ringer's (Lactated Ringer's) 1,000 mls @ 150 mls/hr IV .Q6H40M [facility] Last Admin: 04/02/18 06:03 Dose: Not Given Insulin Human Isoph/Insulin Regular (Novolin 70/30 (70/30 Units/Ml) 10 Ml) 15 units SC AC [facility] Last Admin: 04/02/18 08:30 Dose: 15 units Insulin Human Regular (Novolin R) 0 unit SC ACHS [facility]; Protocol Last Admin: 04/02/18 08:29 Dose: 6 units Oxycodone/Acetaminophen (Percocet 5/325 Mg Tab) 1 tab PO Q4 PRN PRN Reason: MODERATE TO SEVERE PAIN Stop: 04/04/18 13:29 Rosuvastatin Calcium (Crestor) 5 mg PO HS [facility] Last Admin: 04/01/18 22:00 Dose: 5 mg - Labs Labs: 04/02/18 07:36 04/02/18 07:36 PT 12.3 SECONDS (9.7-12.2) H 04/01/18 07:37 INR 1.1 04/01/18 07:37 APTT 32 SECONDS (21-34) 04/01/18 07:37 - Additional Findings Additional findings: - Constitutional Appears: Non-toxic, No Acute Distress - Head Exam Head Exam: ATRAUMATIC, NORMOCEPHALIC - Eye Exam Eye Exam: EOMI, Normal appearance - ENT Exam ENT Exam: Mucous Membranes Moist, Normal Exam - Neck Exam Neck Exam: Full ROM - Respiratory Exam Respiratory Exam: Clear to Ausculation Bilateral, NORMAL BREATHING PATTERN. absent: Rales, Rhonchi, Wheezes - Cardiovascular Exam Cardiovascular Exam: REGULAR RHYTHM, +S1, +S2 - GI/Abdominal Exam GI & Abdominal Exam: Soft, Normal Bowel Sounds. absent: Tenderness - Extremities Exam Additional comments: left foot covered with bandage clean/dry/intact xerotic scale and exfoliative changes on dorsum of L foot yellowing and dyskeratosis of toenails b/l - Back Exam Back Exam: NORMAL INSPECTION - Neurological Exam Neurological Exam: Alert, Awake, CN II-XII Intact, Oriented x3 Neuro motor strength exam: Left Lower Extremity: 5, Right Lower Extremity: 5 - Psychiatric Exam Psychiatric exam: Normal Affect, Normal Mood - Skin Skin Exam: Erythematous blanchable macules and patches generalized on b/l UE and LE, anterior and posterior torso. Assessment and Plan - Assessment and Plan (Free Text) Assessment: 52 year old male with PMHx of uncontrolled DM, admitted for left foot cellulitis, s/p Bedside I&D, s/p I&D in [place] 04/01/18 with Podiatry Plan: Cellulitis of L foot - continue to be afebrile, no leukocytosis - s/p I&D in [place] 04/01/18 with Podiatry - s/p bedside I&D x3 with Podiatry - Xray L foot: normal - CT L foot: dorsal cutaneous ulceration with cellulitis. No abscess. No osteomyelitis. - No MRI as pt has metal dental implant - CXR: no active disease - UCx neg final - BCx neg - Wound Cx - coagulase negative staph, streptococcus viridians only resistant to penicillin - f/u OR Wound Cx - Clinda 300mg IV q6h - Dr Daniels - ID consult - will follow recs for abx - Dr Phan - Podiatry - recs appreciated - ID at bedside done 03/28, 03/29, serosanginous drainage, packing placed, dressed - s/p I&D in [place] 04/01/18 DM - HbA1c 11.9 - accuchecks ACHS - novolin 70/30 12u AC - high dose sliding scale - hypoglycemia protocol - ASA 81mg PO daily - Crestor 5mg PO HS Drug Eruption - morbilliform eruption, generalized - likely secondary to antibiotics - d/c zosyn and vanco - solumedrol 40mg IVP once - clobetasol 0.05% topical - atarax 25mg PO once PPX GI: pepcid DVT: lovenox DM diet Plan discussed with Dr Desai <Ish Desai - Last Filed: 04/04/18 21:10> Objective - Vital Signs/Intake and Output Vital Signs (last 24 hours): Temp Pulse Resp BP Pulse Ox 97.9 F 64 20 117/73 96 04/04/18 07:58 04/04/18 07:58 04/04/18 07:58 04/04/18 07:58 04/04/18 07:58 Intake and Output: 04/04/18 04/05/18 18:59 06:59 Intake Total 1500 Output Total 500 Balance 1000 - Labs Labs: 04/04/18 07:19 04/04/18 07:19 PT 12.3 SECONDS (9.7-12.2) H 04/01/18 07:37 INR 1.1 04/01/18 07:37 APTT 32 SECONDS (21-34) 04/01/18 07:37 Attending/Attestation - Attestation I have personally seen and examined this patient.: Yes I have fully participated in the care of the patient.: Yes I have reviewed all pertinent clinical information, including history, physical exam and plan: Yes Notes (Text): seen and examined. developed rash likely due to drug allergy.spoke to Id smith tierney and ritika.start clinda follow economist research assistant,s/p I and D
[2018-04-02] MEDS: Enoxaparin 40 mg Syringe SC SCH (09:27)
--- NOTE | 2018-04-02 10:18 | CP.PCM.PN ---
Subjective - Date & Time of Evaluation Date of Evaluation: 04/02/18 Time of Evaluation: 10:18 - Subjective Subjective: Podiatry progress note for Dr. Phan 52 y/o male seen and evaluated at bedside this morning, 1 day s/p left foot incision and drainage. Patient denies any pain at this time to the left foot. Patient is resting comfortably and denies any acute overnight events. Denies F/C/N/V/CP/SOB. Dressing to left foot exhibits mild serosanguinous strikethrough Objective - Vital Signs/Intake and Output Vital Signs (last 24 hours): Temp Pulse Resp BP Pulse Ox 97.8 F 73 20 108/63 95 04/02/18 08:00 04/02/18 08:00 04/02/18 08:00 04/02/18 08:00 04/02/18 08:00 Intake and Output: 04/02/18 04/02/18 06:59 18:59 Intake Total 2450 Output Total 1000 Balance 1450 - Medications Medications: Current Medications Acetaminophen (Tylenol 325mg Tab) 650 mg PO Q6 PRN PRN Reason: Fever >100.4 F Last Admin: 03/27/18 21:10 Dose: 650 mg Acetaminophen (Tylenol 325mg Tab) 650 mg PO Q6 PRN PRN Reason: Pain, Mild (1-3) Last Admin: 03/29/18 21:45 Dose: 650 mg Acetaminophen (Tylenol 325mg Tab) 650 mg PO Q4H PRN PRN Reason: FOR MILD PAIN Aspirin (Aspirin Chewable) 81 mg PO DAILY [facility] Last Admin: 03/31/18 09:39 Dose: 81 mg Dextrose (Dextrose 50% Inj) 0 ml IV STAT PRN; Protocol PRN Reason: Hypoglycemia Protocol Dextrose (Glutose 15) 0 gm PO ONCE PRN; Protocol PRN Reason: Hypoglycemia Protocol Enoxaparin Sodium (Lovenox) 40 mg SC DAILY [facility] Last Admin: 04/02/18 09:27 Dose: 40 mg Famotidine (Pepcid) 20 mg PO BID [facility] Last Admin: 04/02/18 09:27 Dose: 20 mg Glucagon (Glucagen Diagnostic Kit) 0 mg IM STAT PRN; Protocol PRN Reason: Hypoglycemia Protocol Piperacillin Sod/Tazobactam (Sod 3.375 gm/ Sodium Chloride) 100 mls @ 200 mls/hr IVPB Q6H [facility]; Protocol Last Admin: 04/02/18 08:05 Dose: 200 mls/hr Dextrose (Dextrose 5% In Water 1000 Ml) 1,000 mls @ 0 mls/hr IV .Q0M PRN; Protocol PRN Reason: Hypoglycemia Protocol Vancomycin HCl 1,000 mg/ (Sodium Chloride) 250 mls @ 166.6 mls/hr IVPB Q12H [facility]; Protocol Last Admin: 04/02/18 04:15 Dose: 166.6 mls/hr Lactated Ringer's (Lactated Ringer's) 1,000 mls @ 150 mls/hr IV .Q6H40M [facility] Last Admin: 04/02/18 09:28 Dose: Not Given Insulin Human Isoph/Insulin Regular (Novolin 70/30 (70/30 Units/Ml) 10 Ml) 20 units SC AC [facility] Insulin Human Regular (Novolin R) 0 unit SC ACHS [facility]; Protocol Last Admin: 04/02/18 08:29 Dose: 6 units Oxycodone/Acetaminophen (Percocet 5/325 Mg Tab) 1 tab PO Q4 PRN PRN Reason: MODERATE TO SEVERE PAIN Stop: 04/04/18 13:29 Rosuvastatin Calcium (Crestor) 5 mg PO HS [facility] Last Admin: 04/01/18 22:00 Dose: 5 mg - Labs Labs: 04/02/18 07:36 04/02/18 07:36 PT 12.3 SECONDS (9.7-12.2) H 04/01/18 07:37 INR 1.1 04/01/18 07:37 APTT 32 SECONDS (21-34) 04/01/18 07:37 - Constitutional Appears: Well, Non-toxic, No Acute Distress - Extremities Exam Additional comments: Left Lower Extremity Exam: VASC: DP and PT 2/4 palpable. CFT less than 3 seconds X 10. Temperature warm to warm. +2 pitting edema to the dorsum of the left foot NEURO: protective sensation grossly intact DERM: approximately 1 cm by 1 cm incision site noted to the dorsum of the foot at site of previous incision and drainage. Diffuse erythema noted to entirety of dorsal foot. At present, no fluctuance noted extending towards the third interspace distally. No active drainage or purulence noted. No malodor on xam today. Negative probe to bone. Additional wound measuring 0.3 cm X 0.4 cm noted the medial base of the third digit with no active drainage, mild malodor, mild interdigital maceration, negative probe to bone, improving positive surrounding erythema and edema ORTHO: no tenderness to palpation of left foot incision sites. MMT 5/5 in all groups - Neurological Exam Neurological Exam: Alert, Awake, Oriented x3 - Psychiatric Exam Psychiatric exam: Normal Affect, Normal Mood Assessment and Plan - Assessment and Plan (Free Text) Assessment: 52 y/o male patient who is 1 day s/p left foot incision and drainage of dorsal foot wound Plan: Patient seen and evaluated Plan discussed with attending Dr. Phan Wound Cultures show growth of Coag Neg Staph, Strep viridans Patient to ambulate PWB to heel only with use of surgical shoe Continue IV Antibiotics as per ID Wound sites flushed with saline and SHERITA vac dressing applied with DSD and LORAINE bandage Podiatry will continue to follow patient while in house
[2018-04-02] MEDS ORDERED: MethylPREDNISolone 40 mg Vial IVP ONE (12:45)
[2018-04-02] MEDS: Clindamycin 300 MG in Sodium Chloride 0.9% 50 ML IVPB SCH ×2 (13:49→19:30)
--- NOTE | 2018-04-02 19:11 | CP.PCM.PN ---
Subjective - Date & Time of Evaluation Date of Evaluation: 04/02/18 Time of Evaluation: 16:40 - Subjective Subjective: dictated Objective - Vital Signs/Intake and Output Vital Signs (last 24 hours): Temp Pulse Resp BP Pulse Ox 98.2 F 76 20 101/66 95 04/02/18 15:00 04/02/18 15:00 04/02/18 15:00 04/02/18 15:00 04/02/18 15:00 Intake and Output: 04/02/18 04/03/18 18:59 06:59 Intake Total 1700 Balance 1700 - Medications Medications: Current Medications Acetaminophen (Tylenol 325mg Tab) 650 mg PO Q6 PRN PRN Reason: Fever >100.4 F Last Admin: 03/27/18 21:10 Dose: 650 mg Acetaminophen (Tylenol 325mg Tab) 650 mg PO Q6 PRN PRN Reason: Pain, Mild (1-3) Last Admin: 03/29/18 21:45 Dose: 650 mg Acetaminophen (Tylenol 325mg Tab) 650 mg PO Q4H PRN PRN Reason: FOR MILD PAIN Aspirin (Aspirin Chewable) 81 mg PO DAILY [facility] Last Admin: 03/31/18 09:39 Dose: 81 mg Clobetasol Propionate (Temovate 0.05% Ointment) 1 applic TOP BID [facility] Dextrose (Dextrose 50% Inj) 0 ml IV STAT PRN; Protocol PRN Reason: Hypoglycemia Protocol Dextrose (Glutose 15) 0 gm PO ONCE PRN; Protocol PRN Reason: Hypoglycemia Protocol Enoxaparin Sodium (Lovenox) 40 mg SC DAILY [facility] Last Admin: 04/02/18 09:27 Dose: 40 mg Famotidine (Pepcid) 20 mg PO BID [facility] Last Admin: 04/02/18 18:02 Dose: 20 mg Glucagon (Glucagen Diagnostic Kit) 0 mg IM STAT PRN; Protocol PRN Reason: Hypoglycemia Protocol Dextrose (Dextrose 5% In Water 1000 Ml) 1,000 mls @ 0 mls/hr IV .Q0M PRN; Protocol PRN Reason: Hypoglycemia Protocol Lactated Ringer's (Lactated Ringer's) 1,000 mls @ 150 mls/hr IV .Q6H40M [facility] Last Admin: 04/02/18 14:53 Dose: 150 mls/hr Clindamycin Phosphate 300 mg/ (Sodium Chloride) 52 mls @ 100 mls/hr IVPB Q6H [facility]; Protocol Last Admin: 04/02/18 13:49 Dose: 100 mls/hr Insulin Human Isoph/Insulin Regular (Novolin 70/30 (70/30 Units/Ml) 10 Ml) 20 units SC AC [facility] Last Admin: 04/02/18 12:16 Dose: 20 units Insulin Human Regular (Novolin R) 0 unit SC ACHS [facility]; Protocol Last Admin: 04/02/18 18:02 Dose: Not Given Oxycodone/Acetaminophen (Percocet 5/325 Mg Tab) 1 tab PO Q4 PRN PRN Reason: MODERATE TO SEVERE PAIN Stop: 04/04/18 13:29 Rosuvastatin Calcium (Crestor) 5 mg PO HS [facility] Last Admin: 04/01/18 22:00 Dose: 5 mg - Labs Labs: 04/02/18 07:36 04/02/18 07:36 PT 12.3 SECONDS (9.7-12.2) H 04/01/18 07:37 INR 1.1 04/01/18 07:37 APTT 32 SECONDS (21-34) 04/01/18 07:37
[2018-04-02] MEDS ORDERED: Clindamycin 600 MG in Sodium Chloride 0.9% 100 ML IV SCH (21:15)
--- NOTE | 2018-04-03 00:56 | PN ---
DATE: 04/02/2018 SUBJECTIVE: The patient was seen today as he had developed diffuse rash. The resident called me. He stopped the antibiotics and we did give vancomycin and Zosyn; it is unclear which one caused the problem. He denied any previous allergies to any medications, but the patient speaks mostly Occitan. He denied any itching, but was having diffuse maculopapular rash over the upper body; it could be vancomycin I would think, but cannot be sure and the medication was changed to clindamycin as the wound culture was sensitive to clindamycin. They gave only 300 every 6 hours, so I am going to change it to 600 mg intravenous piggyback every 8 hours, which is the ideal dose to be given. He is to continue other medications and we will follow. He did have an abscess drained yesterday from the left foot and we will wait for the recommendations from the ore trimmer. I did check him out. He was not having any wheezing when I saw him. He denied any pruritus. He can probably get Atarax as needed, I would give that 25. We will follow. Zack Daniels MD
[2018-04-03] MEDS: Lactated Ringer's 1,000 ML IV SCH ×4 (02:51→19:41)
[2018-04-03] MEDS ORDERED: Clindamycin 600 MG in Sodium Chloride 0.9% 100 ML IV SCH (03:30)
[2018-04-03] MEDS: Clindamycin 600mg/50ml NS 600 MG/50 ML BAG IVPB SCH ×3 (04:15→19:01)
[2018-04-03 07:42] LABS: BASO % 0.4 % (0.0-2.0); EOS % 0.4 % (0.0-4.0); HEMOGLOBIN 11.8 g/dL (12.0-18.0); LYMPH # 1.1 K/uL (1.0-4.3); LYMPH % 12.2 % (20.0-40.0); MEAN CELL VOLUME 88.5 fL (80.0-94.0); MEAN CORPUSCULAR HGB CONC 33.9 g/dL (33.0-37.0); MEAN PLATELET VOLUME 9.2 fL (7.2-11.7); MONO # 0.6 K/uL (0.0-0.8); MONO % 6.9 % (0.0-10.0); NEUT # 7.3 K/uL (1.8-7.0); NEUT % 80.1 % (50.0-75.0); RBC 3.93 Mil/uL (4.40-5.90); RED CELL DISTRIBUTION WIDTH 12.9 % (11.5-14.5); WHITE BLOOD COUNT 9.1 K/uL (4.8-10.8)
[2018-04-03 08:02] LABS: ALB/GLOB RATIO 1.1 (1.0-2.1); ALBUMIN 3.5 g/dL (3.5-5.0); ALT/SGPT 59 U/L (21-72); AST/SGOT 36 U/L (17-59); BLOOD UREA NITROGEN 13 mg/dL (9-20); CALCIUM 8.9 mg/dl (8.6-10.4); GFR NON-AFRICAN AMERICAN > 60
[2018-04-03 08:19] VITALS: RESP 20
[2018-04-03] MEDS: (Novolin 70/30) NPH/Regular 70/30 Units/ml 10 ml vial SC SCH ×3 (08:27→16:50)
[2018-04-03] MEDS: (Novolin R) Insulin Human Regular 100 units/ml vial SC SCH ×4 (08:28→21:11)
--- NOTE | 2018-04-03 10:31 | CP.PCM.PN ---
<Andre Hill - Last Filed: 04/03/18 15:16> Subjective - Date & Time of Evaluation Date of Evaluation: 04/03/18 Time of Evaluation: 10:25 - Subjective Subjective: Andre Hill PGY1 Progress Note for Dr. Desai Pt was examined at bedside today. He denies any pain in the foot. He reports improvement in the itchy skin. He denies fever, chills, shortness of breath, abdominal pain, nausea, vomiting, diarrhea. Objective - Vital Signs/Intake and Output Vital Signs (last 24 hours): Temp Pulse Resp BP Pulse Ox 97.8 F 86 20 148/85 96 04/03/18 07:18 04/03/18 07:18 04/03/18 07:18 04/03/18 07:18 04/03/18 07:18 Intake and Output: 04/03/18 04/03/18 06:59 18:59 Intake Total 1500 Output Total 600 Balance 900 - Medications Medications: Current Medications Acetaminophen (Tylenol 325mg Tab) 650 mg PO Q6 PRN PRN Reason: Fever >100.4 F Last Admin: 03/27/18 21:10 Dose: 650 mg Acetaminophen (Tylenol 325mg Tab) 650 mg PO Q6 PRN PRN Reason: Pain, Mild (1-3) Last Admin: 03/29/18 21:45 Dose: 650 mg Acetaminophen (Tylenol 325mg Tab) 650 mg PO Q4H PRN PRN Reason: FOR MILD PAIN Aspirin (Aspirin Chewable) 81 mg PO DAILY [facility] Last Admin: 03/31/18 09:39 Dose: 81 mg Clobetasol Propionate (Temovate 0.05% Ointment) 1 applic TOP BID [facility] Last Admin: 04/02/18 18:00 Dose: 1 applic Dextrose (Dextrose 50% Inj) 0 ml IV STAT PRN; Protocol PRN Reason: Hypoglycemia Protocol Dextrose (Glutose 15) 0 gm PO ONCE PRN; Protocol PRN Reason: Hypoglycemia Protocol Enoxaparin Sodium (Lovenox) 40 mg SC DAILY [facility] Last Admin: 04/02/18 09:27 Dose: 40 mg Famotidine (Pepcid) 20 mg PO BID [facility] Last Admin: 04/02/18 18:02 Dose: 20 mg Glucagon (Glucagen Diagnostic Kit) 0 mg IM STAT PRN; Protocol PRN Reason: Hypoglycemia Protocol Dextrose (Dextrose 5% In Water 1000 Ml) 1,000 mls @ 0 mls/hr IV .Q0M PRN; Protocol PRN Reason: Hypoglycemia Protocol Lactated Ringer's (Lactated Ringer's) 1,000 mls @ 150 mls/hr IV .Q6H40M [facility] Last Admin: 04/03/18 02:51 Dose: 150 mls/hr Clindamycin Phosphate (Cleocin 600mg/50ml Ns) 600 mg in 50 mls @ 100 mls/hr IVPB Q8H [facility]; Protocol Last Admin: 04/03/18 04:15 Dose: 100 mls/hr Insulin Human Isoph/Insulin Regular (Novolin 70/30 (70/30 Units/Ml) 10 Ml) 20 units SC AC [facility] Last Admin: 04/03/18 08:27 Dose: 20 units Insulin Human Regular (Novolin R) 0 unit SC ACHS [facility]; Protocol Last Admin: 04/03/18 08:28 Dose: 8 units Lactobacillus Acidophilus (Bacid Acidophilus) 1 cap PO BID [facility] Oxycodone/Acetaminophen (Percocet 5/325 Mg Tab) 1 tab PO Q4 PRN PRN Reason: MODERATE TO SEVERE PAIN Stop: 04/04/18 13:29 Rosuvastatin Calcium (Crestor) 5 mg PO HS [facility] Last Admin: 04/02/18 21:37 Dose: 5 mg - Labs Labs: 04/03/18 07:38 04/03/18 07:38 PT 12.3 SECONDS (9.7-12.2) H 04/01/18 07:37 INR 1.1 04/01/18 07:37 APTT 32 SECONDS (21-34) 04/01/18 07:37 - Additional Findings Additional findings: - Constitutional Appears: Non-toxic, No Acute Distress - Head Exam Head Exam: ATRAUMATIC, NORMOCEPHALIC - Eye Exam Eye Exam: EOMI, Normal appearance - ENT Exam ENT Exam: Mucous Membranes Moist, Normal Exam - Neck Exam Neck Exam: Full ROM - Respiratory Exam Respiratory Exam: Clear to Ausculation Bilateral, NORMAL BREATHING PATTERN. absent: Rales, Rhonchi, Wheezes - Cardiovascular Exam Cardiovascular Exam: REGULAR RHYTHM, +S1, +S2 - GI/Abdominal Exam GI & Abdominal Exam: Soft, Normal Bowel Sounds. absent: Tenderness - Extremities Exam Additional comments: left foot covered with bandage clean/dry/intact yellowing and dyskeratosis of toenails b/l - Back Exam Back Exam: NORMAL INSPECTION - Neurological Exam Neurological Exam: Alert, Awake, CN II-XII Intact, Oriented x3 Neuro motor strength exam: Left Lower Extremity: 5, Right Lower Extremity: 5 - Psychiatric Exam Psychiatric exam: Normal Affect, Normal Mood - Skin Skin Exam: Erythematous blanchable macules and patches generalized on b/l UE and LE, anterior and posterior torso. Improved. Assessment and Plan - Assessment and Plan (Free Text) Assessment: 52 year old male with PMHx of uncontrolled DM, admitted for left foot cellulitis, s/p Bedside I&D, s/p I&D in [place] 04/01/18 with Podiatry. Plan: Cellulitis of L foot - continues to be afebrile, no leukocytosis - s/p I&D in [place] 04/01/18 with Podiatry - s/p bedside I&D x3 with Podiatry - Xray L foot: normal - CT L foot: dorsal cutaneous ulceration with cellulitis. No abscess. No osteomyelitis. - No MRI as pt has metal dental implant - CXR: no active disease - UCx neg final - BCx neg - Wound Cx - coagulase negative staph, streptococcus viridians only resistant to penicillin - f/u OR Wound Cx - Clinda 600mg IV q8h - Dr Daniels - ID consult - will follow recs for abx - Dr Phan - Podiatry - recs appreciated DM - HbA1c 11.9 - accuchecks ACHS - novolin 70/30 15u AC - high dose sliding scale - hypoglycemia protocol - ASA 81mg PO daily - Crestor 5mg PO HS Drug Eruption, improved - morbilliform eruption, generalized - likely secondary to antibiotics, vanco and zosyn dc'ed - atarax 25mg PO PRN - clobetasol 0.05% topical PPX GI: pepcid DVT: lovenox DM diet Dispo: Pt to be d/c tomorrow with dressing vac and f/u in Dr. Phan's office this week. d/c with clinda 450mg PO TID x7 days. Plan discussed with Dr Desai <Ish Desai - Last Filed: 04/04/18 21:07> Objective - Vital Signs/Intake and Output Vital Signs (last 24 hours): Temp Pulse Resp BP Pulse Ox 97.9 F 64 20 117/73 96 04/04/18 07:58 04/04/18 07:58 04/04/18 07:58 04/04/18 07:58 04/04/18 07:58 Intake and Output: 04/04/18 04/05/18 18:59 06:59 Intake Total 1500 Output Total 500 Balance 1000 - Labs Labs: 04/04/18 07:19 04/04/18 07:19 PT 12.3 SECONDS (9.7-12.2) H 04/01/18 07:37 INR 1.1 04/01/18 07:37 APTT 32 SECONDS (21-34) 04/01/18 07:37 Attending/Attestation - Attestation I have personally seen and examined this patient.: Yes I have fully participated in the care of the patient.: Yes I have reviewed all pertinent clinical information, including history, physical exam and plan: Yes Notes (Text): seen and examined Rash is improving spoke to Dr Daniels,S/P rash on zosyn and vanco. Don't know what causing her allergy on clinda d/c on clinda tomorrow spoke to [employer].follow out pt
[2018-04-03] MEDS: Enoxaparin 40 mg Syringe SC SCH (11:01)
[2018-04-03] MEDS: Lactobacillus Acidophilus 500 MU Cap PO SCH ×2 (11:02→17:05)
[2018-04-03 15:47] VITALS: TEMP 97.9
--- NOTE | 2018-04-03 20:04 | CP.PCM.PN ---
Subjective - Date & Time of Evaluation Date of Evaluation: 04/03/18 Time of Evaluation: 17:00 - Subjective Subjective: DICTATED Objective - Vital Signs/Intake and Output Vital Signs (last 24 hours): Temp Pulse Resp BP Pulse Ox 97.9 F 74 20 115/71 97 04/03/18 15:00 04/03/18 15:00 04/03/18 15:00 04/03/18 15:00 04/03/18 15:00 Intake and Output: 04/03/18 04/04/18 18:59 06:59 Intake Total 1700 Balance 1700 - Medications Medications: Current Medications Acetaminophen (Tylenol 325mg Tab) 650 mg PO Q6 PRN PRN Reason: Fever >100.4 F Last Admin: 03/27/18 21:10 Dose: 650 mg Acetaminophen (Tylenol 325mg Tab) 650 mg PO Q6 PRN PRN Reason: Pain, Mild (1-3) Last Admin: 03/29/18 21:45 Dose: 650 mg Acetaminophen (Tylenol 325mg Tab) 650 mg PO Q4H PRN PRN Reason: FOR MILD PAIN Aspirin (Aspirin Chewable) 81 mg PO DAILY [facility] Last Admin: 04/03/18 11:02 Dose: 81 mg Clobetasol Propionate (Temovate 0.05% Ointment) 1 applic TOP BID [facility] Last Admin: 04/03/18 17:53 Dose: 1 applic Dextrose (Dextrose 50% Inj) 0 ml IV STAT PRN; Protocol PRN Reason: Hypoglycemia Protocol Dextrose (Glutose 15) 0 gm PO ONCE PRN; Protocol PRN Reason: Hypoglycemia Protocol Enoxaparin Sodium (Lovenox) 40 mg SC DAILY [facility] Last Admin: 04/03/18 11:01 Dose: 40 mg Famotidine (Pepcid) 20 mg PO BID [facility] Last Admin: 04/03/18 17:04 Dose: 20 mg Glucagon (Glucagen Diagnostic Kit) 0 mg IM STAT PRN; Protocol PRN Reason: Hypoglycemia Protocol Hydroxyzine HCl (Atarax) 25 mg PO BID PRN PRN Reason: Allergy symptoms Dextrose (Dextrose 5% In Water 1000 Ml) 1,000 mls @ 0 mls/hr IV .Q0M PRN; Protocol PRN Reason: Hypoglycemia Protocol Lactated Ringer's (Lactated Ringer's) 1,000 mls @ 150 mls/hr IV .Q6H40M [facility] Last Admin: 04/03/18 13:38 Dose: Not Given Clindamycin Phosphate (Cleocin 600mg/50ml Ns) 600 mg in 50 mls @ 100 mls/hr IVPB Q8H [facility]; Protocol Last Admin: 04/03/18 19:01 Dose: 100 mls/hr Insulin Human Isoph/Insulin Regular (Novolin 70/30 (70/30 Units/Ml) 10 Ml) 20 units SC AC [facility] Last Admin: 04/03/18 16:50 Dose: 20 units Insulin Human Regular (Novolin R) 0 unit SC ACHS [facility]; Protocol Last Admin: 04/03/18 16:51 Dose: 4 units Lactobacillus Acidophilus (Bacid Acidophilus) 1 cap PO BID [facility] Last Admin: 04/03/18 17:05 Dose: 1 cap Oxycodone/Acetaminophen (Percocet 5/325 Mg Tab) 1 tab PO Q4 PRN PRN Reason: MODERATE TO SEVERE PAIN Stop: 04/04/18 13:29 Rosuvastatin Calcium (Crestor) 5 mg PO HS [facility] Last Admin: 04/02/18 21:37 Dose: 5 mg - Labs Labs: 04/03/18 07:38 04/03/18 07:38 PT 12.3 SECONDS (9.7-12.2) H 04/01/18 07:37 INR 1.1 04/01/18 07:37 APTT 32 SECONDS (21-34) 04/01/18 07:37
--- NOTE | 2018-04-04 00:22 | PN ---
DATE: 04/03/2018 SUBJECTIVE: The patient had diffuse rash yesterday. Today, he is not complaining of any itching, but he has been on medications. At this time, he still has rash, maculopapular, on his back. He was started on clindamycin. I want to make sure his rash goes away. He still has a dressing on the left foot. The attending told me that he is being cleared by Podiatry and will be followed as outpatient, and if he remains stable, he probably can be discharged on clindamycin for a week. ASSESSMENT AND PLAN: He has Streptococcus viridans and coagulase-negative. He is not allergic to any medicine, but he is penicillin resistant, so may go on clindamycin and that is fine or we can give him Cipro 500 mg p.o. b.i.d. for 10 days which may be better. He needs to follow up with the metal technician. He also needs to control his sugars. Zack Daniels MD
[2018-04-04] MEDS: Lactated Ringer's 1,000 ML IV SCH (01:36)
[2018-04-04 02:19] VITALS: O2SAT 96
[2018-04-04] MEDS: Clindamycin 600mg/50ml NS 600 MG/50 ML BAG IVPB SCH ×2 (03:18→10:46)
[2018-04-04 07:34] LABS: BASO % 0.3 % (0.0-2.0); EOS # 0.2 K/uL (0.0-0.7); EOS % 2.4 % (0.0-4.0); HEMOGLOBIN 10.3 g/dL (12.0-18.0); LYMPH # 1.9 K/uL (1.0-4.3); LYMPH % 24.9 % (20.0-40.0); MEAN CELL VOLUME 88.2 fL (80.0-94.0); MEAN CORPUSCULAR HEMOGLOBIN 29.9 pg (27.0-31.0); MEAN CORPUSCULAR HGB CONC 33.9 g/dL (33.0-37.0); MEAN PLATELET VOLUME 9.6 fL (7.2-11.7); MONO # 0.6 K/uL (0.0-0.8); MONO % 7.4 % (0.0-10.0); RBC 3.44 Mil/uL (4.40-5.90); RED CELL DISTRIBUTION WIDTH 13.1 % (11.5-14.5); WHITE BLOOD COUNT 7.8 K/uL (4.8-10.8)
[2018-04-04 07:58] VITALS: BP 117/73; PULSE 64
[2018-04-04] MEDS: (Novolin 70/30) NPH/Regular 70/30 Units/ml 10 ml vial SC SCH ×2 (08:31→12:17)
[2018-04-04] MEDS: (Novolin R) Insulin Human Regular 100 units/ml vial SC SCH ×2 (08:31→12:16)
--- NOTE | 2018-04-04 09:04 | CP.PCM.DIS ---
<Lisa Cosby - Last Filed: 04/04/18 17:13> Provider - Provider Date of Admission: 03/25/18 13:58 Attending physician: Ish Desai MD Consults: 03/28/18 17:27 Podiatry Consult Routine Comment: Consulting Provider: Shirin Phan Consulting Physician: Shirin Phan Reason for Consult: Left foot cellulitis, redness swelling for 1week 03/28/18 18:49 Infectious Disease Consult Routine Comment: Consulting Provider: Zack Daniels Consulting Physician: Zack Daniels Reason for Consult: left foot possible abscess, draining Time Spent in preparation of Discharge (in minutes): 35 Diagnosis - Discharge Diagnosis (1) Cellulitis of left lower extremity Status: Acute Comment: Resolving Hospital Course - Lab Results Lab Results: Micro Results 04/01/18 15:05 Foot - Left Gram Stain - Final 04/01/18 15:05 Foot - Left Wound Culture - Preliminary No growth. 04/01/18 15:05 Foot - Left Gram Stain - Final 04/01/18 15:05 Foot - Left Wound Culture - Preliminary No growth. 03/28/18 19:13 Foot - Left Gram Stain - Final 03/28/18 19:13 Foot - Left Wound Culture - Final Coagulase Neg Staphylococcus Streptococcus Viridans 03/25/18 12:26 Blood Blood Culture - Final NO GROWTH AFTER 5 DAYS 03/25/18 12:05 Blood Blood Culture - Final NO GROWTH AFTER 5 DAYS 03/25/18 12:05 Blood Gram Stain - Final TEST NOT PERFORMED 03/25/18 16:07 Urine,Random Urine Culture - Final No Growth (<1,000 CFU/ML) Most Recent Lab Values WBC 7.8 K/uL (4.8-10.8) 04/04/18 07:19 RBC 3.44 Mil/uL (4.40-5.90) L 04/04/18 07:19 Hgb 10.3 g/dL (12.0-18.0) L 04/04/18 07:19 Hct 30.4 % (35.0-51.0) L 04/04/18 07:19 MCV 88.2 fL (80.0-94.0) 04/04/18 07:19 MCH 29.9 pg (27.0-31.0) 04/04/18 07:19 MCHC 33.9 g/dL (33.0-37.0) 04/04/18 07:19 RDW 13.1 % (11.5-14.5) 04/04/18 07:19 Plt Count 304 K/uL (130-400) 04/04/18 07:19 MPV 9.6 fL (7.2-11.7) 04/04/18 07:19 Neut % (Auto) 65.0 % (50.0-75.0) 04/04/18 07:19 Lymph % (Auto) 24.9 % (20.0-40.0) 04/04/18 07:19 [place] % (Auto) 7.4 % (0.0-10.0) 04/04/18 07: Eos % (Auto) 2.4 % (0.0-4.0) 04/04/18 07:19 Baso % (Auto) 0.3 % (0.0-2.0) 04/04/18 07:19 Neut # (Auto) 5.0 K/uL (1.8-7.0) 04/04/18 07:19 Lymph # (Auto) 1.9 K/uL (1.0-4.3) 04/04/18 07:19 [place] # (Auto) 0.6 K/uL (0.0-0.8) 04/04/18 07:19 Eos # (Auto) 0.2 K/uL (0.0-0.7) 04/04/18 07: Baso # (Auto) 0.0 K/uL (0.0-0.2) 04/04/18 07:19 Neutrophils % (Manual) 86 % (50-75) H 03/25/18 12:05 Lymphocytes % (Manual) 7 % (20-40) L 03/25/18 12:05 Monocytes % (Manual) 7 % (0-10) 03/25/18 12:05 Platelet Estimate Normal (NORMAL) 03/25/18 12:05 PT 12.3 SECONDS (9.7-12.2) H 04/01/18 07:37 INR 1.1 04/01/18 07:37 APTT 32 SECONDS (21-34) 04/01/18 07:37 pO2 27 mm/Hg (30-55) L 03/25/18 15:41 VBG pH 7.32 (7.32-7.43) 03/25/18 15:41 VBG pCO2 49 mmHg (40-60) 03/25/18 15:41 VBG HCO3 22.4 mmol/L 03/25/18 15:41 VBG Total CO2 26.7 mmol/L (22-28) 03/25/18 15:41 VBG O2 Sat (Calc) 55.2 % (40-65) 03/25/18 15:41 VBG Base Excess -1.4 mmol/L (0.0-2.0) L 03/25/18 15:41 VBG Potassium 3.6 mmol/L (3.6-5.2) 03/25/18 15:41 Sodium 141.0 mmol/l (132-148) 03/25/18 15:41 Chloride 110.0 mmol/L (98-107) H 03/25/18 15:41 Glucose 245 mg/dl (75-110) H 03/25/18 15:41 Lactate 0.9 mmol/L (0.7-2.1) 03/25/18 15:41 Crit Value Called To Ya bishop 03/25/18 11:55 Crit Value Called By Barbara peck 03/25/18 11:55 Crit Value Read Back Y 03/25/18 11:55 Blood Gas Notified Time 1206 03/25/18 11:55 Sodium 134 mmol/L (132-148) 04/03/18 07:38 Potassium 4.2 mmol/L (3.6-5.2) 04/03/18 07:38 Chloride 95 mmol/L (98-107) L 04/03/18 07:38 Carbon Dioxide 28 mmol/L (22-30) 04/03/18 07:38 Anion Gap 14 (10-20) 04/03/18 07:38 BUN 13 mg/dL (9-20) 04/03/18 07:38 Creatinine 0.9 mg/dL (0.8-1.5) 04/03/18 07:38 Est GFR ( Amer) > 60 04/03/18 07:38 Est GFR (Non-Af Amer) > 60 04/03/18 07:38 POC Glucose (mg/dL) 158 mg/dL (65-110) H 04/04/18 07:37 Random Glucose 335 mg/dL (75-110) H D 04/03/18 07:38 Hemoglobin A1c 11.9 % (4.2-6.5) H 03/26/18 17:17 Calcium 8.9 mg/dl (8.6-10.4) 04/03/18 07:38 Total Bilirubin 0.4 mg/dL (0.2-1.3) 04/03/18 07:38 AST 36 U/L (17-59) 04/03/18 07:38 ALT 59 U/L (21-72) 04/03/18 07:38 Alkaline Phosphatase 183 U/L (38-126) H 04/03/18 07:38 Total Protein 6.8 g/dL (6.3-8.3) 04/03/18 07:38 Albumin 3.5 g/dL (3.5-5.0) 04/03/18 07:38 Globulin 3.3 gm/dL (2.2-3.9) 04/03/18 07:38 Albumin/Globulin Ratio 1.1 (1.0-2.1) 04/03/18 07:38 Venous Blood Potassium 3.6 mmol/L (3.6-5.2) 03/25/18 15:41 Urine Color Yellow (YELLOW) 03/25/18 15:04 Urine Clarity Clear (Clear) 03/25/18 15:04 Urine pH 5.0 (5.0-8.0) 03/25/18 15:04 Ur Specific [place] 1.030 (1.003-1.030) 03/25/18 15:04 Urine Protein Negative mg/dL (NEGATIVE) 03/25/18 15:04 Urine Glucose (UA) 3+ mg/dL (Normal) H 03/25/18 15:04 Urine Ketones 2+ mg/dL (NEGATIVE) H 03/25/18 15:04 Urine Blood Negative (NEGATIVE) 03/25/18 15:04 Urine Nitrate Negative (NEGATIVE) 03/25/18 15:04 Urine Bilirubin Negative (NEGATIVE) 03/25/18 15:04 Urine Urobilinogen Normal mg/dL (0.2-1.0) 03/25/18 15:04 Ur Leukocyte Esterase Neg Isidra/uL (Negative) 03/25/18 15:04 Urine WBC (Auto) 1 /hpf (0-5) 03/25/18 15:04 Urine RBC (Auto) < 1 /hpf (0-3) 03/25/18 15:04 Urine Bacteria Rare (<OCC) 03/25/18 15:04 Urine Opiates Screen Negative (NEGATIVE) 03/27/18 10:38 Urine Methadone Screen Negative (NEGATIVE) 03/27/18 10:38 Ur Barbiturates Screen Negative (NEGATIVE) 03/27/18 10:38 Ur Phencyclidine Scrn Negative (NEGATIVE) 03/27/18 10:38 Ur Amphetamines Screen Negative (NEGATIVE) 03/27/18 10:38 U Benzodiazepines Scrn Negative (NEGATIVE) 03/27/18 10:38 U Oth Cocaine Metabols Positive (NEGATIVE) H 03/27/18 10:38 U Cannabinoids Screen Negative (NEGATIVE) 03/27/18 10:38 B-Hydroxybutyrate 3.30 mM (0.02-0.27) H 03/25/18 12:05 - Hospital Course Hospital Course: This patient is a 52 year old male with a PMHx of uncontrolled DM, admitted for left foot cellulitis. ID and Podiatry were consulted on thecase Patient started on IV antibiotics. Hospital course complicated mirbilliform durg eroption likely 2/2 to vancomycin and zoysn. Patient was then switched to IV Clindamycin. 1st wound culture grew Coagulase negative staph and Streptococcus Viridans. Bedside I&D were preformed on 04/01/18 and wound cultures were taken which were negative. Foot X-ray was unremarkable, CT of Left Foot was negative for osteomyelitis; final urine and blood cultures were negative. Patient will go home with PO Ciprofoloxacin, ASA, H ydroxyzine, Insulin, Lactobicillus, and Crestor. Patient asked to follow up with primary physician in 1 week; he was given referral to [facility]. Patient also asked to follow up with Dr. Phan within 7 days of discharge and was given the number. Patient is agreeable to plan and medications. Discharge Exam - Head Exam Head Exam: ATRAUMATIC, NORMOCEPHALIC - Additional Findings Additional findings: - Constitutional Appears: Non-toxic, No Acute Distress - Head Exam Head Exam: ATRAUMATIC, NORMOCEPHALIC - Eye Exam Eye Exam: EOMI, Normal appearance - ENT Exam ENT Exam: Mucous Membranes Moist, Normal Exam - Neck Exam Neck Exam: Full ROM - Respiratory Exam Respiratory Exam: Clear to Ausculation Bilateral, NORMAL BREATHING PATTERN. absent: Rales, Rhonchi, Wheezes - Cardiovascular Exam Cardiovascular Exam: REGULAR RHYTHM, +S1, +S2 - GI/Abdominal Exam GI & Abdominal Exam: Soft, Normal Bowel Sounds. absent: Tenderness - Extremities Exam Additional comments: left foot covered with bandage clean/dry/intact yellowing and dyskeratosis of toenails b/l - Back Exam Back Exam: NORMAL INSPECTION - Neurological Exam Neurological Exam: Alert, Awake, CN II-XII Intact, Oriented x3 Neuro motor strength exam: Left Lower Extremity: 5, Right Lower Extremity: 5 - Psychiatric Exam Psychiatric exam: Normal Affect, Normal Mood - Skin Skin Exam: Erythematous blanchable macules and patches generalized on b/l UE and LE, anterior and posterior torso. Improved. Discharge Plan - Discharge Medications Prescriptions: RX: Aspirin [Aspirin Chewable] 81 mg PO DAILY #30 chew RX: Ciprofloxacin [Cipro] 500 mg PO BID #20 tab RX: Insulin Human (NPH)/Regular [Novolin 70/30 (70/30 units/ml) 10 ml] 20 units SC AC 30 Days unit RX: Lactobacillus Acidophilus [Bacid Acidophilus] 1 cap PO BID #30 cap RX: Rosuvastatin Calcium [Crestor] 5 mg PO HS #30 tab - Follow Up Plan Condition: SERIOUS Disposition: HOME/ ROUTINE Instructions: Insulin NPH and Insulin Regular, Ciprofloxacin (Systemic), Diabetes Type 2 (DC), Cellulitis (Skin Infection), Adult (DC), Aspirin, Lactobacillus, Rosuvastatin Additional Instructions: Please follow up with primary care at the [facility] clinic here at [facility]. Please call [phone] to make an appointment. Please follow up with podiatry, Dr. Phan the foot doctor, within 7 days. Please call to make an appointment. Please take your medications as prescribed. Note that the insulin is free at [facility]. Please refrain from using drugs as it will worsen your health. Return the emergency department if symptoms return. Take care and be well. Por favor, siga con la atencin primaria en la clnica de jim del vecindario aqu en el [facility]. Por favor llame al [phone] para hacer martin yoli. Por favor, morgan un seguimiento con podologa, Dr. Phan, el mdico del [facility], dentro de los 7 nielsen. Llame al para hacer martin yoli. Por favor, tome darin medicamentos segn lo prescrito. Tenga en cuenta que la insulina es gratuita en [facility]. Por favor, abstngase de usar drogas ya que empeorar ford jim. Devuelva el departamento de emergencias si los sntomas regresan. Cudate y sintete dipesh. Referrals: [facility] [Outside] Shirin Phan DPM [Staff Provider] - <Ish Desai - Last Filed: 04/04/18 21:05> Provider - Provider Date of Admission: 03/25/18 13:58 Attending physician: Ish Desai MD Consults: 03/28/18 17:27 Podiatry Consult Routine Comment: Consulting Provider: Shirin Phan Consulting Physician: Shirin Phan Reason for Consult: Left foot cellulitis, redness swelling for 1week 03/28/18 18:49 Infectious Disease Consult Routine Comment: Consulting Provider: Zack Daniels Consulting Physician: Zack Daniels Reason for Consult: left foot possible abscess, draining Hospital Course - Lab Results Lab Results: Micro Results 04/01/18 15:05 Foot - Left Gram Stain - Final 04/01/18 15:05 Foot - Left Wound Culture - Final No growth. 04/01/18 15:05 Foot - Left Gram Stain - Final 04/01/18 15:05 Foot - Left Wound Culture - Final No growth. 03/28/18 19:13 Foot - Left Gram Stain - Final 03/28/18 19:13 Foot - Left Wound Culture - Final Coagulase Neg Staphylococcus Streptococcus Viridans 03/25/18 12:26 Blood Blood Culture - Final NO GROWTH AFTER 5 DAYS 03/25/18 12:05 Blood Blood Culture - Final NO GROWTH AFTER 5 DAYS 03/25/18 12:05 Blood Gram Stain - Final TEST NOT PERFORMED 03/25/18 16:07 Urine,Random Urine Culture - Final No Growth (<1,000 CFU/ML) Most Recent Lab Values WBC 7.8 K/uL (4.8-10.8) 04/04/18 07:19 RBC 3.44 Mil/uL (4.40-5.90) L 04/04/18 07:19 Hgb 10.3 g/dL (12.0-18.0) L 04/04/18 07:19 Hct 30.4 % (35.0-51.0) L 04/04/18 07:19 MCV 88.2 fL (80.0-94.0) 04/04/18 07: MCH 29.9 pg (27.0-31.0) 04/04/18 07: MCHC 33.9 g/dL (33.0-37.0) 04/04/18 07: RDW 13.1 % (11.5-14.5) 04/04/18 07:19 Plt Count 304 K/uL (130-400) 04/04/18 07:19 MPV 9.6 fL (7.2-11.7) 04/04/18 07:19 Neut % (Auto) 65.0 % (50.0-75.0) 04/04/18 07: Lymph % (Auto) 24.9 % (20.0-40.0) 04/04/18 07:19 [place] % (Auto) 7.4 % (0.0-10.0) 04/04/18 07:19 Eos % (Auto) 2.4 % (0.0-4.0) 04/04/18 07:19 Baso % (Auto) 0.3 % (0.0-2.0) 04/04/18 07:19 Neut # (Auto) 5.0 K/uL (1.8-7.0) 04/04/18 07: Lymph # (Auto) 1.9 K/uL (1.0-4.3) 04/04/18 07:19 [place] # (Auto) 0.6 K/uL (0.0-0.8) 04/04/18 07:19 Eos # (Auto) 0.2 K/uL (0.0-0.7) 04/04/18 07:19 Baso # (Auto) 0.0 K/uL (0.0-0.2) 04/04/18 07:19 Neutrophils % (Manual) 86 % (50-75) H 03/25/18 12:05 Lymphocytes % (Manual) 7 % (20-40) L 03/25/18 12:05 Monocytes % (Manual) 7 % (0-10) 03/25/18 12:05 Platelet Estimate Normal (NORMAL) 03/25/18 12:05 PT 12.3 SECONDS (9.7-12.2) H 04/01/18 07:37 INR 1.1 04/01/18 07:37 APTT 32 SECONDS (21-34) 04/01/18 07:37 pO2 27 mm/Hg (30-55) L 03/25/18 15:41 VBG pH 7.32 (7.32-7.43) 03/25/18 15:41 VBG pCO2 49 mmHg (40-60) 03/25/18 15:41 VBG HCO3 22.4 mmol/L 03/25/18 15:41 VBG Total CO2 26.7 mmol/L (22-28) 03/25/18 15:41 VBG O2 Sat (Calc) 55.2 % (40-65) 03/25/18 15:41 VBG Base Excess -1.4 mmol/L (0.0-2.0) L 03/25/18 15:41 VBG Potassium 3.6 mmol/L (3.6-5.2) 03/25/18 15:41 Sodium 141.0 mmol/l (132-148) 03/25/18 15:41 Chloride 110.0 mmol/L (98-107) H 03/25/18 15:41 Glucose 245 mg/dl (75-110) H 03/25/18 15:41 Lactate 0.9 mmol/L (0.7-2.1) 03/25/18 15:41 Crit Value Called To Ya h 03/25/18 11:55 Crit Value Called By Barbara peck 03/25/18 11:55 Crit Value Read Back Y 03/25/18 11:55 Blood Gas Notified Time 1206 03/25/18 11:55 Sodium 137 mmol/L (132-148) 04/04/18 07:19 Potassium 4.1 mmol/L (3.6-5.2) 04/04/18 07:19 Chloride 98 mmol/L (98-107) 04/04/18 07:19 Carbon Dioxide 34 mmol/L (22-30) H 04/04/18 07:19 Anion Gap 9 (10-20) L 04/04/18 07:19 BUN 16 mg/dL (9-20) 04/04/18 07:19 Creatinine 0.9 mg/dL (0.8-1.5) 04/04/18 07:19 Est GFR ( Amer) > 60 04/04/18 07:19 Est GFR (Non-Af Amer) > 60 04/04/18 07:19 POC Glucose (mg/dL) 221 mg/dL (65-110) H 04/04/18 11:49 Random Glucose 112 mg/dL (75-110) H D 04/04/18 07:19 Hemoglobin A1c 11.9 % (4.2-6.5) H 03/26/18 17:17 Calcium 8.6 mg/dl (8.6-10.4) 04/04/18 07:19 Total Bilirubin 0.2 mg/dL (0.2-1.3) 04/04/18 07:19 AST 52 U/L (17-59) 04/04/18 07:19 ALT 70 U/L (21-72) 04/04/18 07:19 Alkaline Phosphatase 167 U/L (38-126) H 04/04/18 07:19 Total Protein 6.3 g/dL (6.3-8.3) 04/04/18 07:19 Albumin 3.1 g/dL (3.5-5.0) L 04/04/18 07:19 Globulin 3.2 gm/dL (2.2-3.9) 04/04/18 07:19 Albumin/Globulin Ratio 1.0 (1.0-2.1) 04/04/18 07:19 Venous Blood Potassium 3.6 mmol/L (3.6-5.2) 03/25/18 15:41 Urine Color Yellow (YELLOW) 03/25/18 15:04 Urine Clarity Clear (Clear) 03/25/18 15:04 Urine pH 5.0 (5.0-8.0) 03/25/18 15:04 Ur Specific [place] 1.030 (1.003-1.030) 03/25/18 15:04 Urine Protein Negative mg/dL (NEGATIVE) 03/25/18 15:04 Urine Glucose (UA) 3+ mg/dL (Normal) H 03/25/18 15:04 Urine Ketones 2+ mg/dL (NEGATIVE) H 03/25/18 15:04 Urine Blood Negative (NEGATIVE) 03/25/18 15:04 Urine Nitrate Negative (NEGATIVE) 03/25/18 15:04 Urine Bilirubin Negative (NEGATIVE) 03/25/18 15:04 Urine Urobilinogen Normal mg/dL (0.2-1.0) 03/25/18 15:04 Ur Leukocyte Esterase Neg Isidra/uL (Negative) 03/25/18 15:04 Urine WBC (Auto) 1 /hpf (0-5) 03/25/18 15:04 Urine RBC (Auto) < 1 /hpf (0-3) 03/25/18 15:04 Urine Bacteria Rare (<OCC) 03/25/18 15:04 Urine Opiates Screen Negative (NEGATIVE) 03/27/18 10:38 Urine Methadone Screen Negative (NEGATIVE) 03/27/18 10:38 Ur Barbiturates Screen Negative (NEGATIVE) 03/27/18 10:38 Ur Phencyclidine Scrn Negative (NEGATIVE) 03/27/18 10:38 Ur Amphetamines Screen Negative (NEGATIVE) 03/27/18 10:38 U Benzodiazepines Scrn Negative (NEGATIVE) 03/27/18 10:38 U Oth Cocaine Metabols Positive (NEGATIVE) H 03/27/18 10:38 U Cannabinoids Screen Negative (NEGATIVE) 03/27/18 10:38 B-Hydroxybutyrate 3.30 mM (0.02-0.27) H 03/25/18 12:05 Attending/Attestation - Attestation I have personally seen and examined this patient.: Yes I have fully participated in the care of the patient.: Yes I have reviewed all pertinent clinical information, including history, physical exam and plan: Yes Notes (Text): Discharge plan discussed with the patient
[2018-04-04 09:22] LABS: ALBUMIN 3.1 g/dL (3.5-5.0); ALT/SGPT 70 U/L (21-72); AST/SGOT 52 U/L (17-59); BLOOD UREA NITROGEN 16 mg/dL (9-20); CALCIUM 8.6 mg/dl (8.6-10.4); GFR NON-AFRICAN AMERICAN > 60
[2018-04-04] MEDS: Lactobacillus Acidophilus 500 MU Cap PO SCH (09:35)
[2018-04-04] MEDS: Enoxaparin 40 mg Syringe SC SCH (09:36)
--- NOTE | 2018-04-04 10:28 | CP.PCM.PN ---
Subjective - Date & Time of Evaluation Date of Evaluation: 04/04/18 Time of Evaluation: 10:28 - Subjective Subjective: Podiatry progress note for Dr. Phan 52 year old male patient seen and evaluated at bedside POD#3 L foot incision and drainage. Patient resting comfortably and in NAD. He denies any pain to his L foot at this time. He denies any new acute pedal complaints. Denies N/V/F/SOB/CP. Objective - Vital Signs/Intake and Output Vital Signs (last 24 hours): Temp Pulse Resp BP Pulse Ox 97.9 F 64 20 117/73 96 04/04/18 07:58 04/04/18 07:58 04/04/18 07:58 04/04/18 07:58 04/04/18 07:58 Intake and Output: 04/04/18 04/04/18 06:59 18:59 Intake Total 1600 1500 Output Total 700 500 Balance 900 1000 - Medications Medications: Current Medications Acetaminophen (Tylenol 325mg Tab) 650 mg PO Q6 PRN PRN Reason: Fever >100.4 F Last Admin: 03/27/18 21:10 Dose: 650 mg Acetaminophen (Tylenol 325mg Tab) 650 mg PO Q6 PRN PRN Reason: Pain, Mild (1-3) Last Admin: 03/29/18 21:45 Dose: 650 mg Acetaminophen (Tylenol 325mg Tab) 650 mg PO Q4H PRN PRN Reason: FOR MILD PAIN Aspirin (Aspirin Chewable) 81 mg PO DAILY [facility] Last Admin: 04/04/18 09:35 Dose: 81 mg Clobetasol Propionate (Temovate 0.05% Ointment) 1 applic TOP BID [facility] Last Admin: 04/04/18 09:35 Dose: 1 applic Dextrose (Dextrose 50% Inj) 0 ml IV STAT PRN; Protocol PRN Reason: Hypoglycemia Protocol Dextrose (Glutose 15) 0 gm PO ONCE PRN; Protocol PRN Reason: Hypoglycemia Protocol Enoxaparin Sodium (Lovenox) 40 mg SC DAILY [facility] Last Admin: 04/04/18 09:36 Dose: Not Given Famotidine (Pepcid) 20 mg PO BID [facility] Last Admin: 04/04/18 09:35 Dose: 20 mg Glucagon (Glucagen Diagnostic Kit) 0 mg IM STAT PRN; Protocol PRN Reason: Hypoglycemia Protocol Hydroxyzine HCl (Atarax) 25 mg PO BID PRN PRN Reason: Allergy symptoms Dextrose (Dextrose 5% In Water 1000 Ml) 1,000 mls @ 0 mls/hr IV .Q0M PRN; Protocol PRN Reason: Hypoglycemia Protocol Clindamycin Phosphate (Cleocin 600mg/50ml Ns) 600 mg in 50 mls @ 100 mls/hr IVPB Q8H NISSA; Protocol Last Admin: 04/04/18 03:18 Dose: 100 mls/hr Insulin Human Isoph/Insulin Regular (Novolin 70/30 (70/30 Units/Ml) 10 Ml) 20 units SC AC [facility] Last Admin: 04/04/18 08:31 Dose: 20 units Insulin Human Regular (Novolin R) 0 unit SC ACHS [facility]; Protocol Last Admin: 04/04/18 08:31 Dose: 2 units Lactobacillus Acidophilus (Bacid Acidophilus) 1 cap PO BID [facility] Last Admin: 04/04/18 09:35 Dose: 1 cap Oxycodone/Acetaminophen (Percocet 5/325 Mg Tab) 1 tab PO Q4 PRN PRN Reason: MODERATE TO SEVERE PAIN Stop: 04/04/18 13:29 Rosuvastatin Calcium (Crestor) 5 mg PO HS [facility] Last Admin: 04/03/18 21:23 Dose: 5 mg - Labs Labs: 04/04/18 07:19 04/04/18 07:19 PT 12.3 SECONDS (9.7-12.2) H 04/01/18 07:37 INR 1.1 04/01/18 07:37 APTT 32 SECONDS (21-34) 04/01/18 07:37 - Constitutional Appears: Well, Non-toxic, No Acute Distress - Head Exam Head Exam: ATRAUMATIC, NORMOCEPHALIC - Extremities Exam Additional comments: L foot dressing with SHERITA vac clean, dry, intact. Patient able to wiggle toes CFT < 3 seconds to digit NVS intact to L foot - Neurological Exam Neurological Exam: Alert, Awake, Oriented x3 - Psychiatric Exam Psychiatric exam: Normal Affect, Normal Mood Assessment and Plan - Assessment and Plan (Free Text) Assessment: 52 year old male patient POD#3 left foot incision and drainage of dorsal foot wound Plan: Patient seen and evaluated Plan discussed with attending Dr. Sylvester VELÁSQUEZ, WBC 7.8 L Wound Cultures (04/01/18); no growth Patient to ambulate PWB to heel only with use of surgical shoe Continue IV Antibiotics as per ID SHERITA dressing checked and running properly at this time; patient instructed to leave dressing C/D/I Podiatry will continue to follow patient while in house Pending d/c patient to follow up in podiatry clinic within the week for continued local wound care
--- NOTE | 2018-04-06 08:49 | OP ---
PROCEDURE DATE: 04/01/2018 SURGEON: Shirin Phan DPM ROOF PANEL HANGER: AGNIESZKA De La Vega ANESTHESIA: IV sedation with local. PREOPERATIVE DIAGNOSIS: Left foot abscess with cellulitis. POSTOPERATIVE DIAGNOSIS: Left foot abscess with cellulitis. PROCEDURE: Left foot incision and drainage. INDICATION: The patient is a 53-year-old male with above diagnosis. The patient has exhausted all conservative treatment at this time, and now requests surgical intervention. The patient signed the consent after careful explanation of risks, benefits, complications and alternatives for the surgical procedure. No guarantees were given nor implied. PREPARATION: The patient was brought into the operating room and placed on the operating room table in a supine position. Time-out was performed for identification of the correct patient and procedure. After induction of IV sedation, the patient received a total of 10 mL of 1:1 mixture of 0.5% Marcaine plain and 1% lidocaine plain in a local block fashion to the dorsal aspect of the left foot. Once local anesthesia was achieved, the left foot was then prepped and draped in a normal sterile manner. No tourniquet was used during this procedure. DESCRIPTION OF PROCEDURE: Left foot I and D: Attention was directed to the dorsal aspect of the left foot where an ulceration measuring approximately 2 cm x 1.5 cm x 1 cm was appreciated. Next, utilizing a #15 blade, all the non-viable skin was removed surrounding the dorsal full thickness ulceration. Next, an incision was made extending from the ulceration distally into the third interspace. The incisions were deepened into subcutaneous tissue using a #15 blade. At that time, 20 mL of purulent fluid was expressed from the incision site, necrotic and devitalized tissue was excisionally debrided until healthy granular bleeding tissues was noted. Next, using the pulse lavage, the area was irrigated and copiously flushed with 3 liters of normal sterile saline. Next, the wound was cleansed with Iricept. The wound was then partially closed with 3-0 Prolene. Next, a 0.25 inch iodoform packing was placed at the distal aspect of the surgical site. The wound was dressed with Betadine, gauze, ABD, and Lei bandage. POSTOPERATIVE CONDITION: The patient tolerated the anesthesia and procedure well and was escorted to the recovery room with all vital signs stable and neurovascular status intact to the left foot. The patient is still remaining nonweightbearing to the left foot. The patient will be readmitted for further monitoring. Jerri AGNIESZKA Mireles Shirin Phan DPM MTDD
== END 2018-04-04 13:20 | disposition home or self-care (01) | DRG 364 ==
LOC: C.ER 10:15 → C.3T 13:58
PROVIDERS: ADMIT Internal Medicine; ATTEND Internal Medicine
PROC: 0J9R0ZZ Drainage of Left Foot Subcutaneous Tissue and Fascia, Open Approach (ICD-10-PCS; principal; 2018-04-01 12:00)
DX: L03.116 Cellulitis of left lower limb (principal); E11.65 Type 2 diabetes mellitus with hyperglycemia; L02.612 Cutaneous abscess of left foot; B35.3 Tinea pedis; Z79.4 Long term (current) use of insulin; Z16.11 Resistance to penicillins; L27.0 Generalized skin eruption due to drugs and medicaments taken internally